=== PATIENT | male | born 1940 | race Caucasian/White ===

== ENCOUNTER 2016-12-21 10:32 | Emergency (ER) | payer MEDICARE ==
[~2016-12-21] VITALS: Ht 162.6 cm; Wt 74.8 kg
[~2016-12-21 10:32] MED LIST: ASPI-482 PO; FURO40TA4 PO; LISI-338 PO; METO25TA4 PO; PANT40TA5 PO; PHEN100C PO; PHEN100O3 PO; PHEN64.8 PO; POTA20TA12 PO; POTA20TA4 PO; SIMV10TA3 PO; SPIR25TA PO
--- NOTE | 2016-12-21 12:32 | PHYS DOC ---
Past Medical History Past Medical History: CAD, High Cholesterol, Heart Disease, Hypertension, Seizure, Stroke Past Surgical History: Coronary Bypass Surgery Additional Information: smokes 3-4 cigars daily Alcohol Use: None Drug Use: None Adult General Chief Complaint Chief Complaint: CELLULITIS HPI HPI 76-year-old male who has history of cardiac bypass surgery for the past month has had some lower extremity bilaterally irritation consistent with a dermatitis that has been treated with prednisone and Bactroban ointment with minimal to no relief. Over the last day now he's developed significant redness and swelling to his right lower extremity and concern for cellulitis. He additionally states he has history of hypertension and a seizure disorder. He states the wound area on the right lower extremity has been seeping clear drainage. He states this fluid is filling his sock last evening and that is what concerned him. He denies any fever or chills. He denies any nausea or vomiting. He denies any chest pain or shortness of breath. Review of Systems Review of Systems Constitutional: Denies fever or chills [] Eyes: Denies change in visual acuity, redness, or eye pain [] HENT: Denies nasal congestion or sore throat [] Respiratory: Denies cough or shortness of breath [] Cardiovascular: No additional information not addressed in HPI [] GI: Denies abdominal pain, nausea, vomiting, bloody stools or diarrhea [] : Denies dysuria or hematuria [] Musculoskeletal: Denies back pain or joint pain [] Integument: Denies rash, has skin lesions [] Neurologic: Denies headache, focal weakness or sensory changes [] Endocrine: Denies polyuria or polydipsia [] Current Medications Current Medications Current Medications Medications (Trade) Dose Ordered Sig/Omkar Start Time Stop Time Status Last Admin Dose Admin Clindamycin Phosphate (Cleocin 600 Mg Premix) 50 ml @ 100 mls/hr 1X ONCE 12/21/16 13:30 12/21/16 13:59 DC 12/21/16 13:34 100 MLS/HR Allergies Allergies Allergies Coded Allergies Type Severity Reaction Last Updated Verified Sulfa (Sulfonamide Antibiotics) Adverse Reaction Intermediate HALLUCINATIONS Yes morphine Adverse Reaction Intermediate HALLUCINATIONS 05/14/15 Yes warfarin Adverse Reaction Intermediate GI bleeding 12/21/16 Yes Physical Exam Physical Exam Constitutional: Well developed, well nourished, no acute distress, non-toxic appearance. [] HENT: Normocephalic, atraumatic, bilateral external ears normal, oropharynx moist, no oral exudates, nose normal. [] Eyes: PERRLA, EOMI, conjunctiva normal, no discharge. [] Neck: Normal range of motion, no tenderness, supple, no stridor. [] Cardiovascular:Heart rate regular rhythm, no murmur [] Lungs & Thorax: Bilateral breath sounds clear to auscultation [] Abdomen: Bowel sounds normal, soft, no tenderness, no masses, no pulsatile masses. [] Skin: Warm, dry, no erythema, no rash. [] Back: No tenderness, no CVA tenderness. [] Extremities: Right lower extremity swelling and tenderness with an area of erythema to the right toe that extends upward to the right anterior tibial surface, no cyanosis, no clubbing, ROM intact, bilateral 2+ edema to lower extremities [] Neurologic: Alert and oriented X 3, normal motor function, normal sensory function, no focal deficits noted. [] Psychologic: Affect normal, judgement normal, mood normal. [] Current Patient Data Vital Signs Vital Signs Date Time Temp Pulse Resp B/P Pulse Ox O2 Delivery O2 Flow Rate FiO2 12/21/16 14:19 111 22 129/69 Room Air 12/21/16 13:50 98 12/21/16 10:51 97.6 97.6 Lab Values Laboratory Tests Test 12/21/16 13:10 White Blood Count 12.8x10^3/uL (4.0-11.0) H Red Blood Count 3.54x10^6/uL (4.30-5.70) L Hemoglobin 11.0g/dL (13.0-17.5) L Hematocrit 33.4% (39.0-53.0) L Mean Corpuscular Volume 94fL (79-100) Mean Corpuscular Hemoglobin 31pg (25-35) Mean Corpuscular Hemoglobin Concent 33g/dL (31-37) Red Cell Distribution Width 13.9% (11.5-14.5) Platelet Count 200x10^3/uL (140-400) Neutrophils (%) (Auto) 59% (31-73) Lymphocytes (%) (Auto) 9% (24-48) L Monocytes (%) (Auto) 8% (0-9) Eosinophils (%) (Auto) 24% (0-3) H Basophils (%) (Auto) 1% (0-3) Neutrophils # (Auto) 7.5x10^3uL (1.8-7.7) Lymphocytes # (Auto) 1.2x10^3/uL (1.0-4.8) Monocytes # (Auto) 1.0x10^3/uL (0.0-1.1) Eosinophils # (Auto) 3.1x10^3/uL (0.0-0.7) H Basophils # (Auto) 0.1x10^3/uL (0.0-0.2) Segmented Neutrophils % 61% (35-66) Band Neutrophils % 7% (0-9) Lymphocytes % 7% (24-48) L Monocytes % 1% (0-10) Eosinophils % 24% (0-5) H Toxic Granulation Slight Platelet Estimate Adequate (ADEQUATE) Sodium Level 141mmol/L (136-145) Potassium Level 3.9mmol/L (3.5-5.1) Chloride Level 106mmol/L (98-107) Carbon Dioxide Level 26mmol/L (21-32) Anion Gap 9 (6-14) Blood Urea Nitrogen 12mg/dL (8-26) Creatinine 1.1mg/dL (0.7-1.3) Estimated GFR (Cockcroft-Gault) 65.4 Glucose Level 111mg/dL (70-99) H Calcium Level 7.9mg/dL (8.5-10.1) L Laboratory Tests 12/21/16 13:10 Laboratory Tests 12/21/16 13:10 EKG EKG [] Radiology/Procedures Radiology/Procedures [] Course & Med Decision Making Course & Med Decision Making Pertinent Labs and Imaging studies reviewed. (See chart for details) 76 old male who's had treatment for ongoing bilateral skin irritation and dermatitis of his lower extremities now has what appears to be a developing cellulitis on his right lower extremity with some mild swelling as well. Venous Doppler of his right lower externally was ordered. Lab work will also be drawn. At this time, I believe the patient to be suitable for oral antibiotic therapy and close follow-up if his lab work is unremarkable and his Doppler is negative for DVT. Pt has sulfa allergy. I will be giving the patient a dose of clindamycin. Laboratory workup showed a slightly elevated white count but no other acute abnormality. Patient was given a prescription for clindamycin. I discussed this case with Dr. Lane who agreed that he will follow the patient the next several days for a likely early cellulitis. Venous Doppler was negative for DVT. He was discharged without incident. Dragon Disclaimer Dragon Disclaimer This electronic medical record was generated, in whole or in part, using a voice recognition dictation system. Departure Departure Impression: Primary Impression: Cellulitis Additional Impression: Dermatitis Disposition: 01 HOME, SELF-CARE Admitting Physician: Other Condition: STABLE Referrals: TEQUILA LANE MD (PCP) Patient Instructions: Cellulitis, [id number] Additional Instructions: Please follow up with your primary doctor in the next 2-3 days regarding your recent skin infection. Take your antibiotic as prescribed. Return to the ER if you develop any worsening of your symptoms or if you notice your infection getting any worse. Return if the redness should worsen or if you develop any fever or chills. Scripts Clindamycin Hcl 150 Mg [id number] Mg PO QID #120 CAP Prov:MIN AGRCIA DO 12/21/16 Problem Qualifiers MIN GARCIA DO Dec 21, 2016 12:32
[2016-12-21 13:19] LABS: BASO # 0.1 x10^3/uL (0.0-0.2); BASO % 1 % (0-3); EOS % 24 % (0-3); HEMATOCRIT 33.4 % (39.0-53.0); LYMPH # 1.2 x10^3/uL (1.0-4.8); LYMPH % 9 % (24-48); MEAN CORPUSCULAR HEMOGLOBIN 31 pg (25-35); MEAN CORPUSCULAR HGB CONC 33 g/dL (31-37); MEAN CORPUSCULAR VOLUME 94 fL (79-100); MONO % 8 % (0-9); NEUT % 59 % (31-73); PLATELET COUNT 200 x10^3/uL (140-400); RED BLOOD COUNT 3.54 x10^6/uL (4.30-5.70); RED CELL DISTRIBUTION WIDTH 13.9 % (11.5-14.5); WHITE BLOOD COUNT 12.8 x10^3/uL (4.0-11.0)
[2016-12-21 13:28] LABS: CALCIUM 7.9 mg/dL (8.5-10.1); CREATININE 1.1 mg/dL (0.7-1.3); GFR 65.4; POTASSIUM 3.9 mmol/L (3.5-5.1)
[2016-12-21] MEDS ORDERED: CLINDAMYCIN 600MG PREMIX 50 ML IV ONE (13:30)
--- NOTE | 2016-12-21 14:01 | RAD ---
EXAM: Right lower extremity venous Doppler sonogram. HISTORY: Swelling. TECHNIQUE: Grayscale and color Doppler sonographic imaging of the right lower extremity veins with spectral waveform analysis was performed. COMPARISON: None. FINDINGS: The calf veins are not well seen on longitudinal color Doppler images. However, the calf veins are compressible on the transverse images. There is normal color flow, normal compressibility and there are normal spectral waveforms with the remainder of the right lower 70 veins. There is soft tissue edema. There is a prominent right inguinal lymph node measuring 2.9 cm in maximum dimension. This maintains a fatty hilum and is likely reactive in etiology. IMPRESSION: 1. No Doppler evidence of lower extremity venous thrombosis. 2. Right lower extremity soft tissue edema. 3. Prominent right inguinal lymph node, likely reactive in etiology.
[2016-12-21] MEDS ORDERED: CLIN-44 PO (14:05)
[2016-12-21 14:13] LABS: % EOS 24 % (0-5)
[2016-12-21 14:17] LABS: PLT ESTIMATE ADEQUATE (ADEQUATE); TOXIC GRANULATION SLIGHT
[2016-12-21 14:19] VITALS: BP 129/69
== END 2016-12-21 14:20 | disposition home or self-care (01) ==
LOC: ER 10:32
DX: L03.115 Cellulitis of right lower limb (principal); L30.9 Dermatitis, unspecified; E78.00 Pure hypercholesterolemia, unspecified; I11.9 Hypertensive heart disease without heart failure; I25.10 Atherosclerotic heart disease of native coronary artery without angina pectoris; Z86.73 Personal history of transient ischemic attack (TIA), and cerebral infarction without residual deficits; F17.210 Nicotine dependence, cigarettes, uncomplicated; Z95.1 Presence of aortocoronary bypass graft; G40.909 Epilepsy, unspecified, not intractable, without status epilepticus; Z88.2 Allergy status to sulfonamides; Z88.5 Allergy status to narcotic agent; Z88.8 Allergy status to other drugs, medicaments and biological substances
CPT/HCPCS: 36415; 80048; 85007; 85027; 93971; 96365; 99285; J3490

== ENCOUNTER → 2017-05-06 | Outpatient (CLI) | payer MEDICARE ==
[~2017-05-06] MED LIST changes: +CLIN150C14 PO; -PHEN100O3 PO; +PHEN100O4 PO
[2017-05-06 12:51] LABS: BASO # 0.1 x10^3/uL (0.0-0.2); BASO % 1 % (0-3); EOS % 17 % (0-3); HEMOGLOBIN 11.3 g/dL (13.0-17.5); LYMPH # 1.3 x10^3/uL (1.0-4.8); LYMPH % 16 % (24-48); MEAN CORPUSCULAR HEMOGLOBIN 32 pg (25-35); MEAN CORPUSCULAR HGB CONC 33 g/dL (31-37); MEAN CORPUSCULAR VOLUME 95 fL (79-100); MONO % 8 % (0-9); NEUT % 58 % (31-73); PLATELET COUNT 235 x10^3/uL (140-400); RED BLOOD COUNT 3.58 x10^6/uL (4.30-5.70); RED CELL DISTRIBUTION WIDTH 14.1 % (11.5-14.5); WHITE BLOOD COUNT 8.3 x10^3/uL (4.0-11.0)
[2017-05-06 13:09] LABS: ALBUMIN 3.1 g/dL (3.4-5.0); CALCIUM 7.9 mg/dL (8.5-10.1); CREATININE 1.8 mg/dL (0.7-1.3); DIRECT BILIRUBIN 0.1 mg/dL (0.0-0.2); GFR 37.1; MAGNESIUM 2.1 mg/dL (1.8-2.4); POTASSIUM 4.6 mmol/L (3.5-5.1); TOTAL BILIRUBIN 0.3 mg/dL (0.2-1.0); TOTAL PROTEIN 7.4 g/dL (6.4-8.2)
[2017-05-06 13:10] LABS: CHOLESTEROL/HDL RATIO 2.4
== END | disposition home or self-care (01) ==
LOC: LAB 11:48
PROVIDERS: ATTEND Internal Medicine Cardiovascular Disease
DX: I48.91 Unspecified atrial fibrillation (principal); I25.10 Atherosclerotic heart disease of native coronary artery without angina pectoris; E78.5 Hyperlipidemia, unspecified
CPT/HCPCS: 36415; 80048; 80061; 80076; 83735; 85027

== ENCOUNTER → 2018-05-09 | Outpatient (CLI) | payer MEDICARE ==
[2018-05-09] MEDS: REGADENOSON 0.4 MG/5 ML DISP.SYRIN. IV (10:24)
== END | disposition home or self-care (01) ==
LOC: NM 08:13
DX: Z48.812 Encounter for surgical aftercare following surgery on the circulatory system (principal); E78.5 Hyperlipidemia, unspecified; E78.00 Pure hypercholesterolemia, unspecified; E87.6 Hypokalemia; I13.10 Hypertensive heart and chronic kidney disease without heart failure, with stage 1 through stage 4 chronic kidney disease, or unspecified chronic kidney disease; I50.9 Heart failure, unspecified; N18.9 Chronic kidney disease, unspecified; I48.0 Paroxysmal atrial fibrillation; K21.9 Gastro-esophageal reflux disease without esophagitis; Z86.2 Personal history of diseases of the blood and blood-forming organs and certain disorders involving the immune mechanism; Z87.891 Personal history of nicotine dependence; Z95.1 Presence of aortocoronary bypass graft; Z86.73 Personal history of transient ischemic attack (TIA), and cerebral infarction without residual deficits
CPT/HCPCS: 78452; 93017; 96374; 96375; 96376; A9500; J2785

== ENCOUNTER 2020-06-04 13:34 | Inpatient (IN) | payer MEDICARE ==
[~2020-06-04] VITALS: Ht 165.1 cm; Wt 62.7 kg
[~2020-06-04 13:34] MED LIST changes: -PANT40TA5 PO; +PANT40TA77 PO; +SIMV10TA15 PO; -SIMV10TA3 PO
[2020-06-04 14:11] LABS: BASO # 0.1 x10^3/uL (0.0-0.2); BASO % 1 % (0-3); EOS % 0 % (0-3); HEMATOCRIT 29.3 % (39.0-53.0); HEMOGLOBIN 9.8 g/dL (13.0-17.5); LYMPH # 0.5 x10^3/uL (1.0-4.8); LYMPH % 7 % (24-48); MEAN CORPUSCULAR HEMOGLOBIN 35 pg (25-35); MEAN CORPUSCULAR HGB CONC 34 g/dL (31-37); MEAN CORPUSCULAR VOLUME 104 fL (79-100); MONO # 0.4 x10^3/uL (0.0-1.1); MONO % 6 % (0-9); NEUT % 86 % (31-73); PLATELET COUNT 440 x10^3/uL (140-400); RED BLOOD COUNT 2.82 x10^6/uL (4.30-5.70); RED CELL DISTRIBUTION WIDTH 17.6 % (11.5-14.5); WHITE BLOOD COUNT 6.9 x10^3/uL (4.0-11.0)
[2020-06-04] MEDS ORDERED: DILTIAZEM HCL 125 MG in IV NORMAL SALINE 100ML 100 ML IV PRN (14:15)
[2020-06-04 14:26] LABS: CALCIUM 8.2 mg/dL (8.5-10.1); CREATININE 2.1 mg/dL (0.7-1.3); GFR 30.8; POTASSIUM 5.5 mmol/L (3.5-5.1)
[2020-06-04 14:29] LABS: ALBUMIN 3.1 g/dL (3.4-5.0); ALBUMIN/GLOBULIN RATIO 0.7 (1.0-1.7); MAGNESIUM 2.5 mg/dL (1.8-2.4); TOTAL BILIRUBIN 0.3 mg/dL (0.2-1.0); TOTAL PROTEIN 7.4 g/dL (6.4-8.2)
[2020-06-04 14:37] LABS: FREE T4 0.85 ng/dL (0.76-1.46); THYROID STIM HORMONE (TSH) 2.138 uIU/mL (0.358-3.74)
[2020-06-04] MEDS ORDERED: dilTIAZem IV PUSH 25 MG/5 ML VIAL IVP ONE (14:45)
[2020-06-04] MEDS ORDERED: ONDANSETRON PF 4 MG/2 ML VIAL. IV PRN (15:00)
--- NOTE | 2020-06-04 15:00 | PHYS DOC ---
Past Medical History Past Medical History: CAD, High Cholesterol, Heart Disease, Hypertension, Seizure, Stroke Past Surgical History: Coronary Bypass Surgery Smoking Status: Current Every Day Smoker Alcohol Use: None Drug Use: None General Adult EDM: Chief Complaint: Palpitations HPI: HPI: Patient is a 79 year old male who was brought here from half-way due to rapid heart rate for about 3 to 4 days. Patient also complained of weakness and trouble breathing with exertion. Patient denies any cough, no fever, no abdominal pain, no chest pain. Patient do have history of atrial fibrillation, he is on Cardizem at the half-way. Review of Systems: Review of Systems: Constitutional: Denies fever or chills. [] Eyes: Denies change in visual acuity. [] HENT: Denies nasal congestion or sore throat. [] Respiratory: Denies cough , positive for shortness of breath. [] Cardiovascular: Denies chest pain, positive for edema, positive heart palpitation GI: Denies abdominal pain, nausea, vomiting, bloody stools or diarrhea. [] : Denies dysuria. [] Musculoskeletal: Denies back pain or joint pain. [] Integument: Denies rash. [] Neurologic: Denies headache, focal weakness or sensory changes. [] Endocrine: Denies polyuria or polydipsia. [] Lymphatic: Denies swollen glands. [] Psychiatric: Denies depression or anxiety. [] Heart Score: Risk Factors: Risk Factors: DM, Current or recent (<one month) smoker, HTN, HLP, family h istory of CAD, obesity. Risk Scores: Score 0 - 3: 2.5% MACE over next 6 weeks - Discharge Home Score 4 - 6: 20.3% MACE over next 6 weeks - Admit for Clinical Observation Score 7 - 10: 72.7% MACE over next 6 weeks - Early Invasive Strategies Current Medications: Current Medications Medications (Trade) Dose Ordered Sig/Omkar Start Time Stop Time Status Last Admin Dose Admin Diltiazem HCl (Cardizem Iv Push) 20 mg 1X ONCE 06/04/20 14:45 06/04/20 14:46 DC 06/04/20 14:19 20 MG Diltiazem HCl 125 mg/Sodium Chloride 125 ml @ 0 mls/hr CONT PRN 06/04/20 14:15 Allergies: Allergies: Allergies Coded Allergies Type Severity Reaction Last Updated Verified Sulfa (Sulfonamide Antibiotics) Adverse Reaction Intermediate HALLUCINATIONS 05/14/15 Yes morphine Adverse Reaction Intermediate HALLUCINATIONS 05/14/15 Yes warfarin Adverse Reaction Intermediate GI bleeding 12/21/16 Yes Physical Exam: PE: Constitutional: Well developed, well nourished, no acute distress, non-toxic appearance. [] HENT: Normocephalic, atraumatic, bilateral external ears normal, oropharynx moist, no oral exudates, nose normal. [] Eyes: PERRLA, EOMI, conjunctiva PALE, no discharge. [] Neck: Normal range of motion, no tenderness, supple, no stridor. [] Cardiovascular:Rapid, irregular irregular rhythm, systolic murmur, pitting edema 2 plus. Lungs & Thorax: Bilateral breath sounds clear to auscultation [] Abdomen: Bowel sounds normal, soft, no tenderness, no masses, no pulsatile masses. [] Skin: Warm, dry, no erythema, no rash. [] Back: No tenderness, no CVA tenderness. [] Extremities: No tenderness, no cyanosis, no clubbing, ROM intact, pitting edema 2 plus in legs. Neurologic: Alert and oriented X 3, normal motor function, normal sensory function, no focal deficits noted. [] Psychologic: Affect normal, judgement normal, mood normal. [] Current Patient Data: Labs: Laboratory Tests Test 06/04/20 14:03 White Blood Count 6.9 x10^3/uL (4.0-11.0) Red Blood Count 2.82 x10^6/uL (4.30-5.70) L Hemoglobin 9.8 g/dL (13.0-17.5) L Hematocrit 29.3 % (39.0-53.0) L Mean Corpuscular Volume 104 fL (79-100) H Mean Corpuscular Hemoglobin 35 pg (25-35) Mean Corpuscular Hemoglobin Concent 34 g/dL (31-37) Red Cell Distribution Width 17.6 % (11.5-14.5) H Platelet Count 440 x10^3/uL (140-400) H Neutrophils (%) (Auto) 86 % (31-73) H Lymphocytes (%) (Auto) 7 % (24-48) L Monocytes (%) (Auto) 6 % (0-9) Eosinophils (%) (Auto) 0 % (0-3) Basophils (%) (Auto) 1 % (0-3) Neutrophils # (Auto) 6.0 x10^3/uL (1.8-7.7) Lymphocytes # (Auto) 0.5 x10^3/uL (1.0-4.8) L Monocytes # (Auto) 0.4 x10^3/uL (0.0-1.1) Eosinophils # (Auto) 0.0 x10^3/uL (0.0-0.7) Basophils # (Auto) 0.1 x10^3/uL (0.0-0.2) Platelet Estimate Pending Sodium Level 136 mmol/L (136-145) Potassium Level 5.5 mmol/L (3.5-5.1) H Chloride Level 102 mmol/L (98-107) Carbon Dioxide Level 24 mmol/L (21-32) Anion Gap 10 (6-14) Blood Urea Nitrogen 40 mg/dL (8-26) H Creatinine 2.1 mg/dL (0.7-1.3) H Estimated GFR (Cockcroft-Gault) 30.8 BUN/Creatinine Ratio 19 (6-20) Glucose Level 114 mg/dL (70-99) H Calcium Level 8.2 mg/dL (8.5-10.1) L Magnesium Level 2.5 mg/dL (1.8-2.4) H Total Bilirubin 0.3 mg/dL (0.2-1.0) Aspartate Amino Transferase (AST) 49 U/L (15-37) H Alanine Aminotransferase (ALT) 43 U/L (16-63) Alkaline Phosphatase 168 U/L (46-116) H Troponin I Quantitative 0.808 ng/mL (0.000-0.055) XU-Uph-H-Type Natriuretic Peptide > 32905 pg/mL (0-449) H Total Protein 7.4 g/dL (6.4-8.2) Albumin 3.1 g/dL (3.4-5.0) L Albumin/Globulin Ratio 0.7 (1.0-1.7) L Thyroid Stimulating Hormone (TSH) 2.138 uIU/mL (0.358-3.74) Free Thyroxine 0.85 ng/dL (0.76-1.46) Laboratory Tests 06/04/20 14:03 Laboratory Tests 06/04/20 14:03 Vital Signs: Vital Signs Date Time Temp Pulse Resp B/P (MAP) Pulse Ox O2 Delivery O2 Flow Rate FiO2 06/04/20 14:19 140 116/89 EKG: EKG: EKG was done at 1350, heart rate of 143 beats per minutes, atrial fibrillation with RVR, no ST segment elevation Radiology/Procedures: Radiology/Procedures: [][facility] [address] [place] [address] IMAGING REPORT Signed PATIENT: MATTHEW MARTINEZ ACCOUNT: [id number] : 1940 LOCATION: ER AGE: 79 SEX: M EXAM STATUS: PRE ER ORD. PHYSICIAN: KATHYA LOVELL DO REASON: heart palpitation PROCEDURE: CHEST AP ONLY CHEST AP ONLY 06/04/2020 2:05 PM INDICATION: Heart palpitations COMPARISON: None available TECHNIQUE: Portable frontal view of the chest is provided. FINDINGS: The cardiomediastinal silhouette is enlarged. Median sternotomy changes are present. Mild interstitial prominence as may be seen with interstitial edema versus interstitial pneumonitis. Trace bilateral pleural effusions. No pneumothorax although the left lung apex is obscured. No suspicious osseous abnormality. IMPRESSION: Mild cardiomegaly with trace bilateral pleural effusions and interstitial prominence as may be seen with congestive heart failure. Electronically signed by: Pravin Rai MD (06/04/2020 2:59 PM) [id number] DICTATED and SIGNED BY: PRAVIN RAI MD DATE: 06/04/20 1459 Course & Med Decision Making: Course & Med Decision Making Pertinent Labs and Imaging studies reviewed. (See chart for details) Patient is a 79-year-old male who was evaluated in ER due to heart palpitation and trouble breathing with exertion. Patient was found to have CHF exacerbatio n and atrial fibrillation with RVR. Patient was put on Cardizem in the ER, patient be admitted to hospital. Discussed with Dr. SIMPSON who agrees TO admit the patient. Dragon Disclaimer: Dragon Disclaimer: This electronic medical record was generated, in whole or in part, using a voice recognition dictation system. Departure Departure Impression: Primary Impression: Atrial fibrillation with RVR Additional Impression: CHF (congestive heart failure) Disposition: 09 ADMITTED INPATIENT Admitting Physician: Janneth Simpson Condition: IMPROVED Referrals: JANNETH SIMPSON MD (PCP) Justicifation of Admission Dx: Justifications for Admission: Justification of Admission Dx: Yes (AFIB WITH RVR) KATHYA LOVELL DO Jun 04, 2020 15:00
[2020-06-04 15:23] LABS: % BANDS 7 % (0-9); % LYMPHS 5 % (24-48); % MONOS 2 % (0-10); % SEGS 86 % (35-66)
[2020-06-04 15:25] LABS: ANISOCYTOSIS SLIGHT; PLT ESTIMATE INCREASED (ADEQUATE); TOXIC VACUOLATION SLIGHT
[2020-06-04] MEDS ORDERED: ASCO100T4 PO (16:14)
[2020-06-04] MEDS ORDERED: LACT1CAP6 PO (16:14)
[2020-06-04] MEDS ORDERED: DILT60TA3 PO (16:14)
[2020-06-04 17:57] VITALS: BP 99/68
[2020-06-04] MEDS ORDERED: MIDO5TAB4 PO (18:21)
[2020-06-04] MEDS ORDERED: ZINC220C4 PO (18:32)
[2020-06-04] MEDS ORDERED: MULT-246 PO (18:32)
[2020-06-04 19:00] VITALS: BP 110/82
[2020-06-04] MEDS ORDERED: DIGOXIN IV 500 MCG/2 ML AMPUL. IV ONE (19:15)
[2020-06-04] MEDS ORDERED: DILTIAZEM HCL 60 MG PO SCH (20:45)
[2020-06-04 21:00] VITALS: BP 106/74
[2020-06-04] MEDS: PHENobarbital 32.4 MG TABLET. PO SCH (21:48)
[2020-06-04] MEDS: MIDODRINE 5 MG TABLET PO SCH (21:48)
[2020-06-04] MEDS: SIMVASTATIN 10 MG TABLET PO SCH (21:48)
[2020-06-04] MEDS: PHENYTOIN SODIUM EXTENDED 100 MG CAPSULE PO SCH (21:48)
[2020-06-04] MEDS: METOPROLOL TART IMMED RELEASE 25 MG TABLET. PO SCH (21:49)
[2020-06-04 22:00] VITALS: BP 107/69
[2020-06-04 23:00] VITALS: BP_SYST 104; BP_SYST 108; BP_DIAS 69; BP_DIAS 70
[2020-06-05] VITALS (12 sets, daily range): BP systolic 91–126; BP diastolic 60–76
--- NOTE | 2020-06-05 04:13 | EKG ---
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
[2020-06-05] MEDS: PANTOPRAZOLE 40 MG TABLET.DR. PO SCH (06:37)
[2020-06-05 07:53] LABS: ANION GAP 9 (6-14); BLOOD UREA NITROGEN 37 mg/dL (8-26); CALCIUM 7.4 mg/dL (8.5-10.1); CARBON DIOXIDE 23 mmol/L (21-32); CHLORIDE 104 mmol/L (98-107); CHOLESTEROL 124 mg/dL (0-200); GFR 32.6; GLUCOSE 90 mg/dL (70-99); HDLC 36 mg/dL (40-60); LDLC 74 mg/dL (0-100); PHENOBARB 26.2 mcg/mL (15.0-40.0); POTASSIUM 5.6 mmol/L (3.5-5.1); SODIUM 136 mmol/L (136-145); TRIGLYCERIDES 70 mg/dL (0-150); VLDLC 14 mg/dL (0-40)
[2020-06-05 07:54] LABS: CHOLESTEROL/HDL RATIO 3.4
[2020-06-05] MEDS: ASPIRIN ENTERIC COATED 81 MG TABLET.DR. PO SCH (08:23)
[2020-06-05] MEDS: ZINC SULFATE 220 MG CAPSULE. PO SCH (08:23)
[2020-06-05] MEDS: FUROSEMIDE 40 MG TABLET. PO SCH (08:23)
[2020-06-05] MEDS: METOPROLOL TART IMMED RELEASE 25 MG TABLET. PO SCH ×2 (08:24→20:46)
[2020-06-05] MEDS: MULTIVITAMIN with MINERAL TABLET. PO SCH (08:24)
[2020-06-05] MEDS: MIDODRINE 5 MG TABLET PO SCH ×3 (08:24→20:45)
[2020-06-05] MEDS: ENOXAPARIN 30 MG/0.3 ML SYRINGE. SQ SCH (08:26)
[2020-06-05] MEDS: ASCORBIC ACID 500 MG TABLET PO SCH (08:29)
--- NOTE | 2020-06-05 08:31 | PDOC ---
Provider Note Date of Service: DATE: 06/05/20 TIME: 08:31 Provider Note Pt seen .H&P dictated.#[id number]. Justifications for Admission Other Justification TEQUILA SIMPSON MD Jun 05, 2020 08:31
[2020-06-05] MEDS ORDERED: SPIRONOLACTONE 25 MG TABLET PO SCH (09:00)
--- NOTE | 2020-06-05 09:28 | PDOC2 ---
MARLENE ISLAS PIT BOSS 06/05/20 0928: CARDIAC CONSULT DATE OF CONSULT Date of Consult DATE: 06/05/20 TIME: 09:09 REASON FOR CONSULT Reason for Consult: AFIB RVR REFERRING PHYSICIAN Referring Physician: Sae SOURCE Source: Chart review, Patient HISTORY OF PRESENT ILLNESS HISTORY OF PRESENT ILLNESS This is a 79 [facility] for complains of shortness of breath and fast heart rate. He is a poor historian but did not complain of any chest pain or palpitations but rather shortness of breath and swelling. No reports of nausea or vomiting. No coughing. Apparently per staff he is on cardizem at [facility] but has not received it for unknown time possibly from supply issue. Presently as reveiwed he is also on metoprolol and has chronic AFIB. No fever or chills. His SOA is currently better with O2 and at supine position. PAST MEDICAL HISTORY Cardiovascular: AFIB (chronic), CAD, HTN, Hyperlipidemia Pulmonary: Pneumonia CENTRAL NERVOUS SYSTEM: CVA, Seizure GI: GERD, Other (hiatal hernia) Psych: Depression Musculoskeletal: Osteoarthritis PAST SURGICAL HISTORY Past Surgical History: CABG (x5 with dyer-maze procedure in 01/28/2012), Other (right eye surgery) FAMILY HISTORY Family History: Coronary Artery Disease (father) SOCIAL HISTORY Smoke: Quit ALCOHOL: none Lives: Residential CURRENT MEDICATIONS CURRENT MEDICATIONS Current Medications Medications (Trade) Dose Ordered Sig/Omkar Route PRN Reason Start Time Stop Time Status Last Admin Dose Admin Diltiazem HCl (Cardizem Iv Push) 20 mg 1X ONCE IVP 06/04/20 14:45 06/04/20 20:58 DC 06/04/20 14:19 Diltiazem HCl 125 mg/Sodium Chloride 125 ml @ 0 mls/hr CONT PRN IV SEE I/O RECORD 06/04/20 14:15 06/04/20 16:21 Digoxin (Lanoxin) 250 mcg 1X ONCE IV 06/04/20 19:15 06/04/20 19:16 DC 06/04/20 19:15 Aspirin (Ecotrin) 81 mg DAILY PO 06/05/20 09:00 06/05/20 08:23 Furosemide (Lasix) 40 mg DAILY PO 06/05/20 09:00 06/05/20 08:23 Metoprolol Tartrate (Lopressor) 25 mg BID PO 06/04/20 22:00 06/05/20 08:24 Midodrine (Proamatine) 5 mg TID PO 06/04/20 22:00 06/05/20 08:24 Pantoprazole Sodium (Protonix) 40 mg DAILYAC PO 06/05/20 07:30 06/05/20 06:37 Phenytoin Sodium (Dilantin) 200 mg HS PO 06/04/20 22:00 06/04/20 21:48 Simvastatin (Zocor) 10 mg QHS PO 06/04/20 22:00 06/04/20 21:48 Zinc Sulfate (Orazinc) 220 mg DAILY PO 06/05/20 09:00 06/05/20 08:23 Ascorbic Acid (Vitamin C) 250 mg DAILY PO 06/05/20 09:00 06/05/20 08:29 Multivitamins (Thera M Plus) 1 tab DAILY PO 06/05/20 09:00 06/05/20 08:24 Phenobarbital (Luminal) 64.8 mg HS PO 06/04/20 21:00 06/04/20 21:48 Enoxaparin Sodium (Lovenox 30mg Syringe) 30 mg Q24H SQ 06/05/20 09:00 06/05/20 08:26 ALLERGIES ALLERGIES: Coded Allergies: Sulfa (Sulfonamide Antibiotics) (Verified Adverse Reaction, Intermediate, HALLUCINATIONS, 05/14/15) morphine (Verified Adverse Reaction, Intermediate, HALLUCINATIONS, 05/14/15) warfarin (Verified Adverse Reaction, Intermediate, GI bleeding, 12/21/16) ROS Review of System 14 point ROS evaluated with pertinent positives noted per HPI PHYSICAL EXAM General: Alert, Oriented X3, Cooperative, No acute distress HEENT: Atraumatic, Mucous membr. moist/pink Lungs: Other (diminished) Heart: Other (AFIB rate controlled; 3/6 systolic murmur to LLS border) Abdomen: Soft Extremities: Other (3+ bilateral LE pitting edema) Skin: No significant lesion Neuro: Normal speech, Sensation intact Psych/Mental Status: Mental status NL, Other (anxious) MUSCULOSKELETAL: Osteoarthritic changes both hands VITALS/I&O VITALS/I&O: Vital Signs Date Time Temp Pulse Resp B/P (MAP) Pulse Ox O2 Delivery O2 Flow Rate FiO2 06/05/20 08:24 80 107/72 06/05/20 07:00 97.6 20 92 Nasal Cannula 2.0 97.6 I & O 06/04/20 06/04/20 06/05/20 15:00 23:00 07:00 Intake Total 120 ml 0 ml Balance 120 ml 0 ml LABS Lab: Laboratory Tests Test 06/04/20 14:03 06/04/20 21:30 06/05/20 07:13 White Blood Count 6.9 x10^3/uL (4.0-11.0) Red Blood Count 2.82 x10^6/uL (4.30-5.70) L Hemoglobin 9.8 g/dL (13.0-17.5) L Hematocrit 29.3 % (39.0-53.0) L Mean Corpuscular Volume 104 fL (79-100) H Mean Corpuscular Hemoglobin 35 pg (25-35) Mean Corpuscular Hemoglobin Concent 34 g/dL (31-37) Red Cell Distribution Width 17.6 % (11.5-14.5) H Platelet Count 440 x10^3/uL (140-400) H Neutrophils (%) (Auto) 86 % (31-73) H Lymphocytes (%) (Auto) 7 % (24-48) L Monocytes (%) (Auto) 6 % (0-9) Eosinophils (%) (Auto) 0 % (0-3) Basophils (%) (Auto) 1 % (0-3) Neutrophils # (Auto) 6.0 x10^3/uL (1.8-7.7) Lymphocytes # (Auto) 0.5 x10^3/uL (1.0-4.8) L Monocytes # (Auto) 0.4 x10^3/uL (0.0-1.1) Eosinophils # (Auto) 0.0 x10^3/uL (0.0-0.7) Basophils # (Auto) 0.1 x10^3/uL (0.0-0.2) Segmented Neutrophils % 86 % (35-66) H Band Neutrophils % 7 % (0-9) Lymphocytes % 5 % (24-48) L Monocytes % 2 % (0-10) Toxic Vacuolation Slight Platelet Estimate Increased (ADEQUATE) Anisocytosis Slight Sodium Level 136 mmol/L (136-145) 136 mmol/L (136-145) Potassium Level 5.5 mmol/L (3.5-5.1) H 5.6 mmol/L (3.5-5.1) H Chloride Level 102 mmol/L (98-107) 104 mmol/L (98-107) Carbon Dioxide Level 24 mmol/L (21-32) 23 mmol/L (21-32) Anion Gap 10 (6-14) 9 (6-14) Blood Urea Nitrogen 40 mg/dL (8-26) H 37 mg/dL (8-26) H Creatinine 2.1 mg/dL (0.7-1.3) H 2.0 mg/dL (0.7-1.3) H Estimated GFR (Cockcroft-Gault) 30.8 32.6 BUN/Creatinine Ratio 19 (6-20) Glucose Level 114 mg/dL (70-99) H 90 mg/dL (70-99) Calcium Level 8.2 mg/dL (8.5-10.1) L 7.4 mg/dL (8.5-10.1) L Magnesium Level 2.5 mg/dL (1.8-2.4) H Total Bilirubin 0.3 mg/dL (0.2-1.0) Aspartate Amino Transferase (AST) 49 U/L (15-37) H Alanine Aminotransferase (ALT) 43 U/L (16-63) Alkaline Phosphatase 168 U/L (46-116) H Troponin I Quantitative 0.808 ng/mL (0.000-0.055) 1.344 ng/mL (0.000-0.055) 1.234 ng/mL (0.000-0.055) VE-Chx-O-Type Natriuretic Peptide > 87347 pg/mL (0-449) H Total Protein 7.4 g/dL (6.4-8.2) Albumin 3.1 g/dL (3.4-5.0) L Albumin/Globulin Ratio 0.7 (1.0-1.7) L Thyroid Stimulating Hormone (TSH) 2.138 uIU/mL (0.358-3.74) Free Thyroxine 0.85 ng/dL (0.76-1.46) Triglycerides Level 70 mg/dL (0-150) Cholesterol Level 124 mg/dL (0-200) LDL Cholesterol, Calculated 74 mg/dL (0-100) VLDL Cholesterol, Calculated 14 mg/dL (0-40) Non-HDL Cholesterol Calculated 88 mg/dL (0-129) HDL Cholesterol 36 mg/dL (40-60) L Cholesterol/HDL Ratio 3.4 Phenytoin (Dilantin) Level 6.0 mcg/mL (10.0-20.0) L Phenytoin Last Dose Date 06/04/20 Phenytoin Last Dose Time 2100 Phenobarbital Level 26.2 mcg/mL (15.0-40.0) Phenobarbital Last Dose Date 06/04/20 Phenobarbital Last Dose Time 2100 Laboratory Tests 06/04/20 14:03 Laboratory Tests 06/04/20 14:03 06/05/20 07:13 ECHOCARDIOGRAM ECHOCARDIOGRAM <Conclusion> The left ventricular systolic function is normal. The Ejection Fraction is estimated at 55-60%. There is normal LV segmental wall motion. The left atrium is moderately dilated. Mild mitral regurgitation. Mild tricuspid regurgitation. There is moderate pulmonary hypertension. The PA pressure was estimated at 40 mmHg. There is no evidence of significant pericardial effusion. DATE: 06/17/16 1215 STRESS TEST STRESS TEST Conclusion 1. No EKG evidence of stressed induced ischemia. 2. Nuclear imaging shows no significant reversible ischemia. 3. Nuclear imaging shows a fixed apical defect most suggestive of a technical defect. 4. Normal left ventricular systolic function with an ejection fraction of 67%. 5. Moderately low risk Lexiscan nuclear stress test with no evidence of significant reversible ischemia and normal LV systolic function. DATE: 05/09/18 1238 ASSESSMENT/PLAN ASSESSMENT/PLAN 1. Chronic AFIB with RVR: rate now controlled. possible missed meds 2. Acute on chronic diastolic CHF 3. CHANDRA on CKD3 with mild hyperkalemia 4. NSTEMI: possibly type 2, trop 1.3 peaked, EKG afib without acute ST-T wave changes 5. Macrocytic anemia 6. CAD; past CABG, CP free 7. HTN: controlled 8. HLP: lipids on goal 9. Hx of seizures Recommendations TTE. Ischemic workup as an outpt. ASA for stroke prevention, has refused anticoagulation in the past Orthostatic readings when able. He is on midodrine Was given dig and started on cardizem in ED. DC cardizem drip. Continue metoprolol. Hold home lisinopril. BMP at noon. Diuretic therapy. If K level is higher then will consider SPS Continue secondary prevention Follow up with Dr. Black on Jul 02 at 9AM BRITTANY LUBIN MD 06/05/203: CARDIAC CONSULT ASSESSMENT/PLAN ASSESSMENT/PLAN The patient was seen and interviewed as well as examined at the bedside. The chart was reviewed. The case was discussed. Agree with the plan of care. MARLENE ISLAS APRN Jun 05, 2020 09:28 BRITTANY LUBIN MD Jun 05, 2020 19:13
--- NOTE | 2020-06-05 09:36 | EKG ---
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
--- NOTE | 2020-06-05 10:10 | NUR ---
SS following for discharge planning. SS reviewed pt chart and discussed with pt RN. Pt is a skilled rehabilitation resident from [facility], ; fax [phone]. Pt is currently requiring oxygen. SS requested PT/OT orders and COVID19 test per facility request. SS will continue to follow for discharge planning.
[2020-06-05] MEDS ORDERED: FUROSEMIDE 40 MG/4 ML VIAL. IVP ONE (11:30)
--- NOTE | 2020-06-05 13:07 | HP ---
ADMIT DATE: 06/04/2020 MEDICAL HISTORY AND PHYSICAL REASON FOR ADMISSION TO THE HOSPITAL: 1. Atrial fibrillation with rapid ventricular response. 2. Acute on chronic systolic heart failure. HISTORY OF PRESENT ILLNESS: The patient is a 79-year-old male patient known to me, has a history of coronary artery disease, bypass surgery, chronic systolic heart failure, had chronic AFib in the past and he was on Coumadin, but he had bleeding problems. He was not taking any Coumadin. The patient has been at the [facility] lately. I am not sure when and how we went there, but there, he was found to have a heart rate of 130-140, was sent to the Emergency Room, was found to have AFib with RVR, was given Cardizem, was admitted to the hospital. He also had 3+ edema of lower extremities, was given Lasix. PAST MEDICAL HISTORY: Has coronary artery disease, hypertension, hyperlipidemia, chronic AFib, had a previous seizure disorder, hiatal hernia, GI bleed in the past, arthritis. PAST SURGICAL HISTORY: CABG in 2011, right eye surgery. FAMILY HISTORY: Coronary artery disease. SOCIAL HISTORY: He is a smoker of cigars, quit recently. Denies alcohol. The patient has been at the residential recently. His was sick until recently. ALLERGIES: SULFA, MORPHINE, AND COUMADIN. MEDICATIONS AT HOME: Cardizem 60 mg q.8 hours, aspirin 81 mg daily, Lasix 40 mg daily, metoprolol 25 mg twice a day, midodrine 5 mg 3 times a day, Protonix 40 mg daily, Dilantin 200 mg at bedtime, Zocor 10 mg daily, zinc 220 daily, vitamin C daily, phenobarbital 64 mg daily. REVIEW OF SYSTEMS: The patient wants to go home. Denies any chest pain or shortness of breath, has chronic leg swelling. PHYSICAL EXAMINATION: GENERAL: The patient looks older than his age, last time I had seen him more than a year ago. VITAL SIGNS: Temperature 97, pulse 137, respirations 20, blood pressure 116/80, 88 on room air on 2 liters, 94. HEENT: Head is atraumatic. Pupils equal. Oral cavity: No congestion. No teeth. NECK: Supple. Thyroid not enlarged. JVD not elevated. CHEST: Symmetrical. CARDIOVASCULAR: S1, S2, irregular. LUNGS: Few crackles at the bases. ABDOMEN: Soft, bowel sounds present, no mass palpable. EXTERNAL GENITALIA: No [place]. RECTAL: Deferred. EXTREMITIES: 3+ edema all the way up to the thighs, pitting. Foot, no ulcerations in bed of toenails, thick and outgrown toenails. LABORATORY DATA: Shows a white count of 7, hemoglobin 10, platelets 440. Electrolytes show sodium 136, potassium 5.5, chloride 102, bicarbonate 24, anion gap 10, BUN 40, creatinine 2.1, glucose 114, calcium 8.2, magnesium 2.5. LFTs normal. BNP more than 35,000. Troponin 0.8, went up to 1.3, trending down to 1.2. TSH 2.1. Cholesterol 124, LDL 74. His Dilantin is 6, phenobarbital is 26. Chest x-ray shows cardiomegaly with CHF, mild pleural effusion. EKG: AFib with RVR, no ischemic changes. FINAL IMPRESSION: 1. Atrial fibrillation with rapid ventricular response, acute on chronic. 2. Acute on chronic systolic heart failure. 3. Non-ST elevation myocardial infarction, elevated troponin. 4. Hypertension. 5. History of seizures. 6. Coronary artery disease, history of bypass surgery. 7. Side effects from Coumadin. 8. Chronic kidney disease stage 3, creatinine 2. 9. Hyperkalemia, 5.7. PLAN: In the plan, admit, we will do an ultrasound of the kidneys, renal consult and to see how the patient improves in the next 24 hours. Pt was admitted to the hospital cardiac floor, Pt was given Lovenox low dose , Pt was given Cardizem drip to control heart rate. Will do echocardiogram for left ventricular function, venous Doppler of lower extremities to rule out DVT. TEQUILA SIMPSON MD DR: RANDA/chris JOB#: [id number] / [id number] KHADRA
[2020-06-05 13:48] LABS: CALCIUM 7.6 mg/dL (8.5-10.1); GFR 32.6; POTASSIUM 5.4 mmol/L (3.5-5.1)
--- NOTE | 2020-06-05 14:14 | RAD ---
EXAM: Bilateral lower extremity venous Doppler sonogram. HISTORY: Pain and swelling. TECHNIQUE: Kwok scale and color Doppler sonographic evaluation of the bilateral lower extremity veins with spectral waveform analysis was performed. FINDINGS: There is normal color flow, normal compressibility and there are normal spectral waveforms in the common femoral, superficial femoral, popliteal, posterior tibial and greater saphenous veins. The mid and distal right superficial femoral vein is difficult to assess given body habitus and soft tissue edema. IMPRESSION: No Doppler evidence of lower extremity deep venous thrombosis. Electronically signed by: Jaquelin Iyer MD (06/05/2020 2:11 PM) [facility]
--- NOTE | 2020-06-05 14:56 | NUR ---
Wound/Ostomy Care Wound Type/Assessment: Patient seen per wound care consult regarding Stage III pressure ulcer to bilateral buttocks. Wound cleansed, assessed, and measured. Treatment Recommendations/Plan: Recommendations for calazime cream, P-500 bed, and wheelchair cushion. Calazime cream applied. Education provided: Patient educated on dressing and turning Q2. Offloading surface/device: P-500 bed and wheelchair cushion. Recommended Referrals/Tests: N/A Discharge Recommendations for dressings: Continue current treatment. Patient scheduled to discharge today to return to [facility]. Patient in chair at this time with call light in reach. Will follow patient regarding wound care.
--- NOTE | 2020-06-05 15:06 | RAD ---
Exam is an: Ultrasound kidneys HISTORY: History of renal failure COMPARISON: None available Findings: The right kidney measures 9.2 x 3.8 x 3.2 cm . The left kidney measures 9.6 x 2.0 x 4.0 cm. There is a cystic structure identified in the left kidney measuring 1.7 cm probably a cyst. The urinary bladder is mildly distended. IMPRESSION: 1. 1.7 cm cyst left kidney Electronically signed by: Aurelio Dunn MD (06/05/2020 3:03 PM) [id number]
[2020-06-05] MEDS ORDERED: SODIUM POLYSTYRENE SULFON/SORB 15 GM/60 ML ORAL.SUSP. PO ONE (15:15)
--- NOTE | 2020-06-05 15:25 | PDOC2 ---
CONSULT Date of Consult Date of Consult DATE: 06/05/20 TIME: 15:20 Reason for Consult Reason for Consult: RENAL FAILURE Referring Physician Referring Physician: TATIANA Identification/Chief Complaint Chief Complaint SOB Source Source: Chart review History of Present Illness Reason for Visit: THIS IS A 79 YR OLD IN RESIDENT WITH SOB AND INCREASED HR. CARDIOLOGY EVALUATION ONGOING. HAS LE SWELLING ON EXAM. PT IS NOT A GOOD HISTORIAN. HAS CKD STAGE 3 TO 4 BASED ON LABS FROM THE PAST. CR OF ABOUT 2.0 AT BASELINE. NO NEPHROTOXINS NOTED. HX NEG EXCEPT FOR PROSTATISM. RENAL SONOGRAM NOTED TO SHOW A LEFT RENAL CYST. Past Medical History Cardiovascular: AFIB (chronic), CAD, HTN, Hyperlipidemia Pulmonary: Pneumonia CENTRAL NERVOUS SYSTEM: CVA, Seizure GI: GERD, Other (hiatal hernia) Heme/Onc: Anemia NOS Hepatobiliary: No pertinent hx Psych: Depression Musculoskeletal: Osteoarthritis Rheumatologic: No pertinent hx Infectious disease: No pertinent hx Renal/: Chronic renal insuff Endocrine: Diabetes Past Surgical History Past Surgical History: CABG (x5 with dyer-maze procedure in 01/28/2012), Other (right eye surgery) Family History Family History: Coronary Artery Disease (father) Social History Quit ALCOHOL: none Drugs: None [place]: [place] Domestic Violence: Neg Current Problem List Problem List Problems Medical Problems: (1) Atrial fibrillation with RVR Status: Acute (2) CHF (congestive heart failure) Status: Acute Current Medications Current Medications Current Medications Diltiazem HCl (Cardizem Iv Push) 20 mg 1X ONCE IVP Last administered on 06/04/20at 14:19; Start 06/04/20 at 14:45; Stop 06/04/20 at 20:58; Status DC Diltiazem HCl 125 mg/Sodium Chloride 125 ml @ 0 mls/hr CONT PRN IV SEE I/O RECORD Last administered on 06/04/20at 16:21; Start 06/04/20 at 14:15 Ondansetron HCl (Zofran) 4 mg PRN Q8HRS PRN IV NAUSEA/VOMITING; Start 06/04/20 at 15:00; Stop 06/05/20 at 14:59; Status DC Digoxin (Lanoxin) 250 mcg 1X ONCE IV Last administered on 06/04/20at 19:15; Start 06/04/20 at 19:15; Stop 06/04/20 at 19:16; Status DC Aspirin (Ecotrin) 81 mg DAILY PO Last administered on 06/05/20 08:23; Start 06/05/20 at 09:00 Furosemide (Lasix) 40 mg DAILY PO Last administered on 06/05/20at 08:23; Start 06/05/20 at 09:00 Metoprolol Tartrate (Lopressor) 25 mg BID PO Last administered on 06/05/20 08:24; Start 06/04/20 at 22:00 Midodrine (Proamatine) 5 mg TID PO Last administered on 06/05/20 08:24; Start 06/04/20 at 22:00 Pantoprazole Sodium (Protonix) 40 mg DAILYAC PO Last administered on 06/05/20at 06:37; Start 06/05/20 at 07:30 Phenytoin Sodium (Dilantin) 200 mg HS PO Last administered on 06/04/20at 21:48; Start 06/04/20 at 22:00 Simvastatin (Zocor) 10 mg QHS PO Last administered on 06/04/20 21:48; Start 06/04/20 at 22:00 Spironolactone (Aldactone) 25 mg DAILY PO ; Start 06/05/20 at 09:00; Stop 06/05/20 at 08:33; Status DC Zinc Sulfate (Orazinc) 220 mg DAILY PO Last administered on 06/05/20 08:23; Start 06/05/20 at 09:00 Ascorbic Acid (Vitamin C) 250 mg DAILY PO Last administered on 06/05/20at 08:29; Start 06/05/20 at 09:00 Non-Formulary Medication (Diltiazem Hcl (Cardizem Tablet)) 60 mg EVERY 6 HOURS PO ; Start 06/04/20 at 20:45; Stop 06/04/20 at 20:58; Status DC Multivitamins (Thera M Plus) 1 tab DAILY PO Last administered on 06/05/20 08:24; Start 06/05/20 at 09:00 Phenobarbital (Luminal) 64.8 mg HS PO Last administered on 06/04/20 21:48; Start 06/04/20 at 21:00 Enoxaparin Sodium (Lovenox 30mg Syringe) 30 mg Q24H SQ Last administered on 9/9/20at 08:26; Start 06/05/20 at 09:00 Furosemide (Lasix) 40 mg 1X ONCE IVP Last administered on 06/05/20at 11:47; Start 06/05/20 at 11:30; Stop 06/05/20 at 11:31; Status DC Sodium Polystyrene Sulfonate (Kayexalate) 15 gm 1X ONCE PO ; Start 06/05/20 at 15:15; Stop 06/05/20 at 15:18; Status DC Active Scripts Active Clindamycin Hcl 150 Mg Capsule 450 Mg PO QID Aldactone (Spironolactone) 25 Mg Tablet 25 Mg PO DAILY Dilantin (Phenytoin Sodium Extended) 100 Mg Capsule 200 Mg PO HS Reported Multi-Vitamin Daily (Multivitamin) 1 Each Tablet 1 Tab PO DAILY 30 Days Zinc-220 (Zinc Sulfate) 220 Mg Capsule 220 Mg PO DAILY Midodrine Hcl 5 Mg Tablet 5 Mg PO TID Probiotic (Lactobacillus Acidophilus) 1 Each Capsule 1 Cap PO BID 10 Days Cardizem Tablet (Diltiazem Hcl) 60 Mg Tablet 60 Mg PO EVERY 6 HOURS Vitamin C (Ascorbic Acid) 100 Mg Tablet 250 Mg PO DAILY Klor-Con M20 (Potassium Chloride) 20 Meq Tab.er.prt 1 Tab PO DAILY Furosemide 40 Mg Tablet 1 Tab PO DAILY Aspir 81 (Aspirin) 81 Mg Tablet.dr 81 Mg PO Simvastatin 10 Mg Tablet 10 Mg PO Pantoprazole Sodium (Pantoprazole Sodium) 40 Mg Tablet.dr 40 Mg PO Metoprolol Tartrate 25 Mg Tablet 25 Mg PO BID Phenobarbital 64.8 Mg Tablet 64.8 Mg PO Allergies Allergies: Coded Allergies: Sulfa (Sulfonamide Antibiotics) (Verified Adverse Reaction, Intermediate, HALLUCINATIONS, 05/14/15) morphine (Verified Adverse Reaction, Intermediate, HALLUCINATIONS, 05/14/15) warfarin (Verified Adverse Reaction, Intermediate, GI bleeding, 12/21/16) ROS Review of System UNABLE TO OBTAIN Physical Exam General: Alert, Oriented X3, Cooperative, No acute distress Lungs: Clear to auscultation, Other (DECREASED AT BASES) Heart: Regular rate Abdomen: Normal bowel sounds, Soft, No tenderness Neuro: Other (CONFUSED) MUSCULOSKELETAL: No deformity, Other (3+ EDEMA) Vitals VITALS Vital Signs Date Time Temp Pulse Resp B/P (MAP) Pulse Ox O2 Delivery O2 Flow Rate FiO2 06/05/20 11:00 97.7 76 20 112/76 (88) 100 Nasal Cannula 2.0 97.7 Labs Labs Laboratory Tests Test 06/04/20 14:03 06/04/20 21:30 06/05/20 07:13 06/05/20 13:10 White Blood Count 6.9 x10^3/uL (4.0-11.0) Red Blood Count 2.82 x10^6/uL (4.30-5.70) Hemoglobin 9.8 g/dL (13.0-17.5) Hematocrit 29.3 % (39.0-53.0) Mean Corpuscular Volume 104 fL (79-100) Mean Corpuscular Hemoglobin 35 pg (25-35) Mean Corpuscular Hemoglobin Concent 34 g/dL (31-37) Red Cell Distribution Width 17.6 % (11.5-14.5) Platelet Count 440 x10^3/uL (140-400) Neutrophils (%) (Auto) 86 % (31-73) Lymphocytes (%) (Auto) 7 % (24-48) Monocytes (%) (Auto) 6 % (0-9) Eosinophils (%) (Auto) 0 % (0-3) Basophils (%) (Auto) 1 % (0-3) Neutrophils # (Auto) 6.0 x10^3/uL (1.8-7.7) Lymphocytes # (Auto) 0.5 x10^3/uL (1.0-4.8) Monocytes # (Auto) 0.4 x10^3/uL (0.0-1.1) Eosinophils # (Auto) 0.0 x10^3/uL (0.0-0.7) Basophils # (Auto) 0.1 x10^3/uL (0.0-0.2) Segmented Neutrophils % 86 % (35-66) Band Neutrophils % 7 % (0-9) Lymphocytes % 5 % (24-48) Monocytes % 2 % (0-10) Toxic Vacuolation Slight Platelet Estimate Increased (ADEQUATE) Anisocytosis Slight Sodium Level 136 mmol/L (136-145) 136 mmol/L (136-145) 137 mmol/L (136-145) Potassium Level 5.5 mmol/L (3.5-5.1) 5.6 mmol/L (3.5-5.1) 5.4 mmol/L (3.5-5.1) Chloride Level 102 mmol/L (98-107) 104 mmol/L (98-107) 103 mmol/L (98-107) Carbon Dioxide Level 24 mmol/L (21-32) 23 mmol/L (21-32) 26 mmol/L (21-32) Anion Gap 10 (6-14) 9 (6-14) 8 (6-14) Blood Urea Nitrogen 40 mg/dL (8-26) 37 mg/dL (8-26) 37 mg/dL (8-26) Creatinine 2.1 mg/dL (0.7-1.3) 2.0 mg/dL (0.7-1.3) 2.0 mg/dL (0.7-1.3) Estimated GFR (Cockcroft-Gault) 30.8 32.6 32.6 BUN/Creatinine Ratio 19 (6-20) Glucose Level 114 mg/dL (70-99) 90 mg/dL (70-99) 90 mg/dL (70-99) Calcium Level 8.2 mg/dL (8.5-10.1) 7.4 mg/dL (8.5-10.1) 7.6 mg/dL (8.5-10.1) Magnesium Level 2.5 mg/dL (1.8-2.4) Total Bilirubin 0.3 mg/dL (0.2-1.0) Aspartate Amino Transf (AST/SGOT) 49 U/L (15-37) Alanine Aminotransferase (ALT/SGPT) 43 U/L (16-63) Alkaline Phosphatase 168 U/L (46-116) Troponin I Quantitative 0.808 ng/mL (0.000-0.055) 1.344 ng/mL (0.000-0.055) 1.234 ng/mL (0.000-0.055) YU-Sue-K-Type Natriuretic Peptide > 61050 pg/mL (0-449) Total Protein 7.4 g/dL (6.4-8.2) Albumin 3.1 g/dL (3.4-5.0) Albumin/Globulin Ratio 0.7 (1.0-1.7) Thyroid Stimulating Hormone (TSH) 2.138 uIU/mL (0.358-3.74) Free Thyroxine 0.85 ng/dL (0.76-1.46) Triglycerides Level 70 mg/dL (0-150) Cholesterol Level 124 mg/dL (0-200) LDL Cholesterol, Calculated 74 mg/dL (0-100) VLDL Cholesterol, Calculated 14 mg/dL (0-40) Non-HDL Cholesterol Calculated 88 mg/dL (0-129) HDL Cholesterol 36 mg/dL (40-60) Cholesterol/HDL Ratio 3.4 Phenytoin (Dilantin) Level 6.0 mcg/mL (10.0-20.0) Phenytoin Last Dose Date 06/04/20 Phenytoin Last Dose Time 2099 Phenobarbital Level 26.2 mcg/mL (15.0-40.0) Phenobarbital Last Dose Date 06/04/20 Phenobarbital Last Dose Time 2099 Laboratory Tests Test 06/04/20 21:30 06/05/20 07:13 06/05/20 13:10 Troponin I Quantitative 1.344 ng/mL (0.000-0.055) 1.234 ng/mL (0.000-0.055) Sodium Level 136 mmol/L (136-145) 137 mmol/L (136-145) Potassium Level 5.6 mmol/L (3.5-5.1) 5.4 mmol/L (3.5-5.1) Chloride Level 104 mmol/L (98-107) 103 mmol/L (98-107) Carbon Dioxide Level 23 mmol/L (21-32) 26 mmol/L (21-32) Anion Gap 9 (6-14) 8 (6-14) Blood Urea Nitrogen 37 mg/dL (8-26) 37 mg/dL (8-26) Creatinine 2.0 mg/dL (0.7-1.3) 2.0 mg/dL (0.7-1.3) Estimated GFR (Cockcroft-Gault) 32.6 32.6 Glucose Level 90 mg/dL (70-99) 90 mg/dL (70-99) Calcium Level 7.4 mg/dL (8.5-10.1) 7.6 mg/dL (8.5-10.1) Triglycerides Level 70 mg/dL (0-150) Cholesterol Level 124 mg/dL (0-200) LDL Cholesterol, Calculated 74 mg/dL (0-100) VLDL Cholesterol, Calculated 14 mg/dL (0-40) Non-HDL Cholesterol Calculated 88 mg/dL (0-129) HDL Cholesterol 36 mg/dL (40-60) Cholesterol/HDL Ratio 3.4 Phenytoin (Dilantin) Level 6.0 mcg/mL (10.0-20.0) Phenytoin Last Dose Date 06/04/20 Phenytoin Last Dose Time 2099 Phenobarbital Level 26.2 mcg/mL (15.0-40.0) Phenobarbital Last Dose Date 06/04/20 Phenobarbital Last Dose Time 2099 Assessment/Plan Assessment/Plan IMP CKD STAGE 3B TO 4 HYPERKALEMIA AFIB RVR CHF-PROB DIASTOLIC HTN HX BENIGN LEFT RENAL CYST PLAN CARDIOLOGY EVALUATION IV LASIX STOP K SUPPLEMENTS VICKEY MOSELEY MD Jun 05, 2020 15:25
--- NOTE | 2020-06-05 15:42 | RAD ---
CT HEAD WO CONTRAST Clinical indications: Altered mental status. Left-sided weakness. Technique: Noncontrast axial cross sectional scanning of the head was performed. COMPARISON: July 22, 2011 PQRS compliance Statement One or more of the following individualized dose reduction techniques were utilized for this study: 1. Automated exposure control 2. Adjustment of the mA and/or kV according to patient size 3. Use of iterative reconstruction technique Findings: No acute intracranial hemorrhage or midline shift or mass-effect or hydrocephalus or extra-axial fluid collection is seen. Mild periventricular white matter hypodensity is seen consistent with chronic small vessel ischemic disease in this age group. No skull fracture or pneumocephalus is seen. No opacification of the mastoid sinuses or the middle ear cavities or the paranasal sinuses is seen. The maxillary sinuses are not completely seen in this study. Impression: No acute intracranial hemorrhage is seen. Mild chronic small vessel ischemic disease. Electronically signed by: Baljinder Cramer MD (06/05/2020 3:40 PM) [id number]
--- NOTE | 2020-06-05 19:07 | CARD ---
MR#: [id number] Date of Study: 06/05/2020 Ordering Physician: MARLENE ISLAS, Referring Physician: MARLENE ISLAS, Tech: Miriam Amaro [facility] APPROVED REPORT EXAM: Two-dimensional and M-mode echocardiogram with Doppler and color Doppler. Other Information Quality : Good INDICATION Atrial Fibrillation 2D DIMENSIONS RVDd3.0 (2.9-3.5cm)Left Atrium(2D)3.3 (1.6-4.0cm) IVSd1.4 (0.7-1.1cm)Aortic Root(2D)3.7 (2.0-3.7cm) LVDd3.4 (3.9-5.9cm)LVOT Diameter2.0 (1.8-2.4cm) PWd0.9 (0.7-1.1cm)LVDs2.5 (2.5-4.0cm) FS (%) 25.9 %SV24.0 ml LVEF(%)52.1 (>50%) Aortic Valve AoV Peak Abdifatah.107.3cm/sAoV VTI16.0cm AO Peak GR.4.6mmHgLVOT VTI 13.78cm AO Mean GR.3mmHgAVA (VTI)2.68cm2 Tricuspid Valve TR P. [id number]/sRAP [id number] TR Peak Gr.[id number] LEFT VENTRICLE The left ventricle is normal size. There is mild asymmetric septal hypertrophy. The left ventricular systolic function is normal and the ejection fraction is within normal range. The Ejection Fraction i s 55-60%. Septal motion consistent with conduction abnormality. Otherwise, grossly normal wall motion . Tissue Doppler imaging reveals severe left ventricular diastolic dysfunction. No left ventricle thr ombus noted on this study. RIGHT VENTRICLE The right ventricle is severely dilated. The right ventricular systolic function is mildy decreased ATRIA The left atrium is severe dilated. The right atrium is severely dilated. The interatrial septum is in tact with no evidence for an atrial septal defect or patent foramen ovale as noted on 2-D or Doppler imaging. AORTIC VALVE The aortic valve is calcified but opens well. Doppler and Color Flow revealed no significant aortic r egurgitation. There is no significant aortic valvular stenosis. MITRAL VALVE The mitral valve is calcified but opens well. Mitral annular calcification is mild. There is no evide nce of mitral valve prolapse. There is no mitral valve stenosis. Doppler and Color-flow revealed trac e mitral regurgitation. TRICUSPID VALVE Doppler and Color Flow revealed mild to moderate tricuspid regurgitation. There is moderate pulmonary hypertension. The PA pressure was estimated at 49 mmHg. There is no tricuspid valve stenosis. PULMONIC VALVE The pulmonic valve is not well visualized. Doppler and Color Flow revealed mild pulmonic valvular reg urgitation. There is no pulmonic valvular stenosis. GREAT VESSELS The aortic root is normal in size. The ascending aorta is mildly dilated at 3.6 cm. The IVC is normal in size and collapses >50% with inspiration. PERICARDIAL EFFUSION There is no evidence of significant pericardial effusion. Critical Notification Critical Value: No <Conclusion> The left ventricular systolic function is normal and the ejection fraction is within normal range. Th e Ejection Fraction is 55-60%. Septal motion consistent with conduction abnormality. Otherwise, grossly normal wall motion. Tissue Doppler imaging reveals severe left ventricular diastolic dysfunction. The right ventricle is severely dilated. The right ventricular systolic function is mildy decreased Doppler and Color Flow revealed mild to moderate tricuspid regurgitation. There is moderate pulmonary hypertension. The PA pressure was estimated at 49 mmHg. Signed by : Pierre Mcguire, Electronically Approved : 06/05/2020 19:07:14
--- NOTE | 2020-06-05 19:25 | NUR ---
Pt daughter here to see pt, poc explained pt alert with some confusion assessment completed vss call light in reach pt repositioned will resume care and continue to monitor pt.Bed alarm set.
[2020-06-05] MEDS: PHENYTOIN SODIUM EXTENDED 100 MG CAPSULE PO SCH (20:45)
[2020-06-05] MEDS: SIMVASTATIN 10 MG TABLET PO SCH (20:46)
[2020-06-05] MEDS: PHENobarbital 32.4 MG TABLET. PO SCH (20:46)
[2020-06-06 03:09] VITALS: BP 102/66
[2020-06-06 05:59] LABS: CALCIUM 7.3 mg/dL (8.5-10.1); CREATININE 2.1 mg/dL (0.7-1.3); GFR 30.8
[2020-06-06] MEDS: PANTOPRAZOLE 40 MG TABLET.DR. PO SCH ×2 (06:04→08:33)
[2020-06-06 07:00] VITALS: BP 92/63
[2020-06-06] MEDS: MULTIVITAMIN with MINERAL TABLET. PO SCH (08:32)
[2020-06-06] MEDS: METOPROLOL TART IMMED RELEASE 25 MG TABLET. PO SCH ×2 (08:32→19:57)
[2020-06-06] MEDS: ASCORBIC ACID 500 MG TABLET PO SCH (08:32)
[2020-06-06] MEDS: ZINC SULFATE 220 MG CAPSULE. PO SCH (08:33)
[2020-06-06] MEDS: MIDODRINE 5 MG TABLET PO SCH ×3 (08:33→19:58)
[2020-06-06] MEDS: ENOXAPARIN 30 MG/0.3 ML SYRINGE. SQ SCH (08:33)
[2020-06-06] MEDS: ASPIRIN ENTERIC COATED 81 MG TABLET.DR. PO SCH (08:33)
[2020-06-06] MEDS: FUROSEMIDE 40 MG TABLET. PO SCH ×2 (08:33→15:13)
[2020-06-06 11:00] VITALS: BP 119/83
--- NOTE | 2020-06-06 11:06 | PDOC ---
PROGRESS NOTES Date of Service: DATE: 06/06/20 TIME: 11:05 Subjective Subjective feels better ,badly want to go home , to be with his Objective Objective Vital Signs Date Time Temp Pulse Resp B/P (MAP) Pulse Ox O2 Delivery O2 Flow Rate FiO2 06/06/20 08:33 53 92/63 06/06/20 08:00 Nasal Cannula 2.0 06/06/20 07:00 98.2 22 94 98.2 Intake and Output 06/06/20 06:59 Intake Total 650 ml Balance 650 ml Intake Oral 650 ml # Voids 7 Physical Exam Abdomen: Normal bowel sounds, Soft, No tenderness Heart: Regular rate Extremities: Other (3+ bilateral LE pitting edema) General: Alert, Oriented X3, Cooperative, No acute distress HEENT: Atraumatic, Mucous membr. moist/pink Lungs: Clear to auscultation, Other (DECREASED AT BASES) MUSCULOSKELETAL: No deformity, Other (3+ EDEMA) Neuro: Other (CONFUSED) Psych/Mental Status: Mental status NL, Other (anxious) Skin: No significant lesion COMMENT 2+ edmea both legs Diagnosis Problem List Problems Medical Problems: (1) Atrial fibrillation with RVR Status: Acute (2) CHF (congestive heart failure) Status: Acute Assessment Assessment Problems Medical Problems: (1) Atrial fibrillation with RVR Status: Acute (2) CHF (congestive heart failure) Status: Acute FINAL IMPRESSION: 1. Atrial fibrillation with rapid ventricular response, acute on chronic. 2. Acute on chronic systolic heart failure. 3. Non-ST elevation myocardial infarction, elevated troponin. 4. Hypertension. 5. History of seizures. 6. Coronary artery disease, history of bypass surgery. 7. Side effects from Coumadin. 8. Chronic kidney disease stage 3, creatinine 2. 9. Hyperkalemia, 5.7. PLAN: CT head -ve sono kidneys cyst , venous doppler neg for dvt ECHO , sever TR , pul htn and rt heart failure. Cr 2.1 pot 5.1 down. d/c to SNU tomorrow admit to hospital , we will do an ultrasound of the kidneys, renal consult and to see how the patient improves in the next 24 hours. He was given Lovenox, was given Cardizem drip to control heart rate. Also, echocardiogram for left ventricular function, venous Doppler of lower extremities to rule out DVT. Plan Plan of Care Problems Medical Problems: (1) Atrial fibrillation with RVR Status: Acute (2) CHF (congestive heart failure) Status: Acute Comment Review of Relevant I have reviewed the following items bri (where applicable) has been applied. Labs Laboratory Tests Test 06/05/20 13:10 06/06/20 03:50 Sodium Level 137 mmol/L (136-145) 137 mmol/L (136-145) Potassium Level 5.4 mmol/L (3.5-5.1) 5.0 mmol/L (3.5-5.1) Chloride Level 103 mmol/L (98-107) 104 mmol/L (98-107) Carbon Dioxide Level 26 mmol/L (21-32) 23 mmol/L (21-32) Anion Gap 8 (6-14) 10 (6-14) Blood Urea Nitrogen 37 mg/dL (8-26) 37 mg/dL (8-26) Creatinine 2.0 mg/dL (0.7-1.3) 2.1 mg/dL (0.7-1.3) Estimated GFR (Cockcroft-Gault) 32.6 30.8 Glucose Level 90 mg/dL (70-99) 92 mg/dL (70-99) Calcium Level 7.6 mg/dL (8.5-10.1) 7.3 mg/dL (8.5-10.1) Magnesium Level 2.3 mg/dL (1.8-2.4) Medications Current Medications Furosemide (Lasix) 40 mg 1X ONCE IVP Last administered on 06/05/20at 11:47; Start 06/05/20 at 11:30; Stop 06/05/20 at 11:31; Status DC Sodium Polystyrene Sulfonate (Kayexalate) 15 gm 1X ONCE PO Last administered on 06/05/20at 17:35; Start 06/05/20 at 15:15; Stop 06/05/20 at 15:18; Status DC Vitals/I & O Vital Sign - Last 24 Hours 06/05/20 06/05/20 06/05/20 06/05/20 15:00 17:35 19:00 19:25 Temp 97.7 97.5 97.7 97.5 Pulse 78 78 90 Resp 18 18 B/P (MAP) 126/76 (93) 126/76 105/72 (83) Pulse Ox 98 100 O2 Delivery Nasal Cannula Nasal Cannula Nasal Cannula O2 Flow Rate 2.0 2.0 2.0 06/05/20 06/05/20 06/05/20 06/06/20 20:45 20:46 22:11 03:09 Temp 97.9 97.7 97.9 97.7 Pulse 75 77 82 75 Resp 18 18 B/P (MAP) 105/72 105/72 91/60 (70) 102/66 (78) Pulse Ox 95 98 O2 Delivery Room Air Nasal Cannula O2 Flow Rate 2.0 06/06/20 06/06/20 06/06/20 06/06/20 07:00 08:00 08:32 08:33 Temp 98.2 98.2 Pulse 53 53 53 Resp 22 B/P (MAP) 92/63 (73) 92/63 92/63 Pulse Ox 94 O2 Delivery Nasal Cannula Nasal Cannula O2 Flow Rate 2.0 2.0 Intake and Output 06/05/20 06/05/20 06/06/20 14:59 22:59 06:59 Intake Total 350 ml 300 ml Balance 350 ml 300 ml Justifications for Admission Other Justification Nutrition Consultation Dietary Evaluation: Recommendations by RD: Dietary education by RD, Increase Calorie Intake, Protein supplementation Comments: Continue w/cardiac diet as ordered, honor food preferences, provide snacks as requested Continue w/Vit C and MVI as ordered - wound healing REC Magic Cup BID Expected Outcomes/Goals: PO intake to meet >75% est needs Malnutrition Findings: Food and Nutrition Intake (Mod: <75% est energy req 7days Weight Status: Appropriate TEQUILA SIMPSON MD Jun 06, 2020 11:06
--- NOTE | 2020-06-06 11:30 | PDOC ---
Renal-Progress Notes Subjective Notes Notes CONFUSED History of Present Illness Hx of present illness STABLE Vitals Vitals Vital Signs Date Time Temp Pulse Resp B/P (MAP) Pulse Ox O2 Delivery O2 Flow Rate FiO2 06/06/20 11:00 97.5 87 22 119/83 (95) 98 Nasal Cannula 2.0 97.5 Weight Weight [ ] I.O. Intake and Output Intake and Output 06/06/20 07:00 Intake Total 650 ml Balance 650 ml Intake Oral 650 ml # Voids 7 Labs Labs Laboratory Tests Test 06/05/20 13:10 06/06/20 03:50 Sodium Level 137 mmol/L (136-145) 137 mmol/L (136-145) Potassium Level 5.4 mmol/L (3.5-5.1) 5.0 mmol/L (3.5-5.1) Chloride Level 103 mmol/L (98-107) 104 mmol/L (98-107) Carbon Dioxide Level 26 mmol/L (21-32) 23 mmol/L (21-32) Anion Gap 8 (6-14) 10 (6-14) Blood Urea Nitrogen 37 mg/dL (8-26) 37 mg/dL (8-26) Creatinine 2.0 mg/dL (0.7-1.3) 2.1 mg/dL (0.7-1.3) Estimated GFR (Cockcroft-Gault) 32.6 30.8 Glucose Level 90 mg/dL (70-99) 92 mg/dL (70-99) Calcium Level 7.6 mg/dL (8.5-10.1) 7.3 mg/dL (8.5-10.1) Magnesium Level 2.3 mg/dL (1.8-2.4) Review of Systems Constitutional: yes: other (CONFUSED) Physical Exam General Appearance: no apparent distress Skin: warm Respiratory: bilateral CTA Heart: S1S2 Abdomen: soft, bowel sounds present Genitourinary: bladder flat Extremities: edema Neurology: alert, confused Musculoskeletal: Osteoarthritis Assessment Assessment IMP CKD STAGE 3B TO 4-CR STABLE AT 2.1 HYPERKALEMIA-RESOLVED AFIB RVR CHF-PROB DIASTOLIC HTN HX BENIGN LEFT RENAL CYST PLAN CARDIOLOGY EVALUATION INCREASE LASIX TO BID STOPPED K SUPPLEMENTS VICKEY MOSELEY MD Jun 06, 2020 11:30
[2020-06-06] MEDS ORDERED: FUROSEMIDE 40 MG/4 ML VIAL. IVP ONE (12:15)
--- NOTE | 2020-06-06 12:27 | PDOC ---
MARLENE ISLAS [employer] 06/06/20 1227: CARDIO Progress Notes Date and Time Date of Service 06/06/2020 Time of Evaluation 1230 Subjective Subjective: No Chest Pain, No shortness of breath, No Palpitations Vitals Vitals Vital Signs Date Time Temp Pulse Resp B/P (MAP) Pulse Ox O2 Delivery O2 Flow Rate FiO2 06/06/20 11:00 97.5 87 22 119/83 (95) 98 Nasal Cannula 2.0 97.5 Weight Weight [ ] Input and Output Intake and Output Intake and Output 06/06/20 07:00 Intake Total 650 ml Balance 650 ml Intake Oral 650 ml # Voids 7 Laboratory Labs Laboratory Tests Test 06/05/20 13:10 06/06/20 03:50 Sodium Level 137 mmol/L (136-145) 137 mmol/L (136-145) Potassium Level 5.4 mmol/L (3.5-5.1) 5.0 mmol/L (3.5-5.1) Chloride Level 103 mmol/L (98-107) 104 mmol/L (98-107) Carbon Dioxide Level 26 mmol/L (21-32) 23 mmol/L (21-32) Anion Gap 8 (6-14) 10 (6-14) Blood Urea Nitrogen 37 mg/dL (8-26) 37 mg/dL (8-26) Creatinine 2.0 mg/dL (0.7-1.3) 2.1 mg/dL (0.7-1.3) Estimated GFR (Cockcroft-Gault) 32.6 30.8 Glucose Level 90 mg/dL (70-99) 92 mg/dL (70-99) Calcium Level 7.6 mg/dL (8.5-10.1) 7.3 mg/dL (8.5-10.1) Magnesium Level 2.3 mg/dL (1.8-2.4) Review of Systems Constitutional: yes: other (CONFUSED) Physical Exam Chest: Symmetric LUNGS: Other (diminished bases) Heart: irregularly irregular (AFIB rate controlled) Abdomen: Soft N/T Extremities: Other (3+ bilateral LE pitting edema) Neurology: alert, oriented, follow commands, confused (periods) Assessment Assessment 1. Chronic AFIB with RVR: rate remains controlled, Differentials include missed meds, metabolic issues 2. Acute on chronic diastolic CHF: appears compensated. SOA better 3. CHANDRA on CKD3 with mild hyperkalemia: K normal with SPS 4. NSTEMI: possibly type 2, trop 1.3 peaked, EKG afib without acute ST-T wave changes 5. Macrocytic anemia 6. CAD; past CABG, CP free 7. HTN: controlled 8. HLP: lipids on goal 9. Hx of seizures 10. Dyspnea: LE sono negative for DVT. EF is nml but with severely dilated RV possibly from LV dysfunction but with presenting tachycardia and SOA, may also need to consider PE w/u with V/Q scan, defer to PCP 11. Warfarin? true allergy? 12. Hx of orthostasis: on midodrine Recommendations Ischemic workup as an outpt. ASA for stroke prevention, has refused anticoagulation in the past Presently his AFIB is rate controlled with current regimen. Given his marginal to normotensive BP, would not consider restarting cardizem at this time. If he starts becoming tachycardic then would optimize metoprolol first if BP would tolerate. Stop home lisinopril and continue with lasix therapy Continue secondary prevention Follow up with Dr. Black on Jul 02 at 9AM Justicifation of Admission Dx: Justifications for Admission: Justification of Admission Dx: Yes (AFIB WITH RVR) BRITTANY LUBIN MD 06/06/20 [id number]: CARDIO Progress Notes Plan Plan The patient was seen and interviewed as well as examined at the bedside. The chart was reviewed. The case was discussed. Agree with the plan of care. MARLENE ISLAS APRN Jun 06, 2020 12:27 BRITTANY LUBIN MD Jun 06, 2020 17:09
[2020-06-06 15:00] VITALS: BP 113/76
[2020-06-06 19:46] VITALS: BP 118/74
[2020-06-06] MEDS: PHENYTOIN SODIUM EXTENDED 100 MG CAPSULE PO SCH (19:58)
[2020-06-06] MEDS: PHENobarbital 32.4 MG TABLET. PO SCH (19:58)
[2020-06-06] MEDS: SIMVASTATIN 10 MG TABLET PO SCH (19:58)
[2020-06-06 22:29] VITALS: BP 120/76
[2020-06-07 02:16] VITALS: BP 115/66
[2020-06-07 06:00] LABS: CALCIUM 7.4 mg/dL (8.5-10.1); CREATININE 2.1 mg/dL (0.7-1.3); GFR 30.8; MAGNESIUM 2.5 mg/dL (1.8-2.4)
[2020-06-07 07:15] VITALS: BP 103/64
[2020-06-07] MEDS: ZINC SULFATE 220 MG CAPSULE. PO SCH (08:27)
[2020-06-07] MEDS: MULTIVITAMIN with MINERAL TABLET. PO SCH (08:27)
[2020-06-07] MEDS: ASCORBIC ACID 500 MG TABLET PO SCH (08:27)
[2020-06-07] MEDS: METOPROLOL TART IMMED RELEASE 25 MG TABLET. PO SCH (08:28)
[2020-06-07] MEDS: FUROSEMIDE 40 MG TABLET. PO SCH (08:28)
[2020-06-07] MEDS: MIDODRINE 5 MG TABLET PO SCH (08:28)
[2020-06-07] MEDS: ASPIRIN ENTERIC COATED 81 MG TABLET.DR. PO SCH (08:28)
[2020-06-07] MEDS: ENOXAPARIN 30 MG/0.3 ML SYRINGE. SQ SCH (08:30)
--- NOTE | 2020-06-07 08:45 | PDOC ---
PROGRESS NOTES Date of Service: DATE: 06/07/20 TIME: 08:44 Subjective Subjective feels better ok with going to SNU Objective Objective Vital Signs Date Time Temp Pulse Resp B/P (MAP) Pulse Ox O2 Delivery O2 Flow Rate FiO2 06/07/20 08:28 95 103/64 06/07/20 07:15 97.6 18 99 Nasal Cannula 2.0 97.6 Intake and Output 06/07/20 07:00 Intake Total 750 ml Balance 750 ml Intake Oral 750 ml # Voids 6 Physical Exam Abdomen: Normal bowel sounds, Soft, No tenderness Heart: Regular rate Extremities: Other (3+ bilateral LE pitting edema) General: Alert, Oriented X3, Cooperative, No acute distress HEENT: Atraumatic, Mucous membr. moist/pink Lungs: Clear to auscultation, Other (DECREASED AT BASES) MUSCULOSKELETAL: No deformity, Other (3+ EDEMA) Neuro: Other (CONFUSED) Psych/Mental Status: Mental status NL, Other (anxious) Skin: No significant lesion COMMENT 1+ edmea both legs Diagnosis Problem List Problems Medical Problems: (1) Atrial fibrillation with RVR Status: Acute (2) CHF (congestive heart failure) Status: Acute Assessment Assessment Problems Medical Problems: (1) Atrial fibrillation with RVR Status: Acute (2) CHF (congestive heart failure) Status: Acute FINAL IMPRESSION: 1. Atrial fibrillation with rapid ventricular response, acute on chronic. 2. Acute on chronic systolic heart failure. 3. Non-ST elevation myocardial infarction, elevated troponin. 4. Hypertension. 5. History of seizures. 6. Coronary artery disease, history of bypass surgery. 7. Side effects from Coumadin. 8. Chronic kidney disease stage 3, creatinine 2. 9. Hyperkalemia, 5.7. PLAN: D/c to SNU today CT head -ve sono kidneys cyst , venous doppler neg for dvt ECHO , sever TR , pul htn and rt heart failure. Cr 2.1 pot 5.1 down. admit to hospital , we will do an ultrasound of the kidneys, renal consult and to see how the patient improves in the next 24 hours. He was given Lovenox, was given Cardizem drip to control heart rate. Also, echocardiogram for left ventricular function, venous Doppler of lower extremities to rule out DVT. Plan Plan of Care Problems Medical Problems: (1) Atrial fibrillation with RVR Status: Acute (2) CHF (congestive heart failure) Status: Acute Comment Review of Relevant I have reviewed the following items bri (where applicable) has been applied. Labs Laboratory Tests Test 06/07/20 05:00 Sodium Level 136 mmol/L (136-145) Potassium Level 5.0 mmol/L (3.5-5.1) Chloride Level 102 mmol/L (98-107) Carbon Dioxide Level 24 mmol/L (21-32) Anion Gap 10 (6-14) Blood Urea Nitrogen 38 mg/dL (8-26) Creatinine 2.1 mg/dL (0.7-1.3) Estimated GFR (Cockcroft-Gault) 30.8 Glucose Level 86 mg/dL (70-99) Calcium Level 7.4 mg/dL (8.5-10.1) Magnesium Level 2.5 mg/dL (1.8-2.4) Medications Current Medications Diltiazem HCl (Cardizem 24hr Cd) 240 mg DAILY PO ; Start 06/06/20 at 11:15; Stop 06/06/20 at 11:53; Status DC Furosemide (Lasix) 40 mg 1X ONCE IVP Last administered on 06/06/20at 12:40; Start 06/06/20 at 12:15; Stop 06/06/20 at 12:16; Status DC Furosemide (Lasix) 40 mg BID94 PO Last administered on 06/07/20at 08:28; Start 06/06/20 at 16:00 Vitals/I & O Vital Sign - Last 24 Hours 06/06/20 06/06/20 06/06/20 06/06/20 11:00 15:00 15:13 19:46 Temp 97.5 98.0 98.1 97.5 98.0 98.1 Pulse 87 80 87 88 Resp 22 21 18 B/P (MAP) 119/83 (95) 113/76 (88) 119/83 118/74 (89) Pulse Ox 98 97 98 O2 Delivery Nasal Cannula Nasal Cannula Nasal Cannula O2 Flow Rate 2.0 2.0 2.0 06/06/20 06/06/20 06/06/20 06/06/20 19:57 19:58 19:59 22:29 Temp 97.9 97.9 Pulse 88 88 79 Resp 18 B/P (MAP) 118/74 118/74 120/76 (91) Pulse Ox 97 O2 Delivery Nasal Cannula Nasal Cannula O2 Flow Rate 2.0 2.0 06/07/20 06/07/20 06/07/20 06/07/20 02:16 07:15 08:28 08:28 Temp 97.7 97.6 97.7 97.6 Pulse 72 95 95 95 Resp 18 18 B/P (MAP) 115/66 (82) 103/64 (77) 103/64 103/64 Pulse Ox 96 99 O2 Delivery Nasal Cannula Nasal Cannula O2 Flow Rate 2.0 2.0 Intake and Output 06/06/20 06/06/20 06/07/20 15:00 23:00 07:00 Intake Total 450 ml 300 ml Balance 450 ml 300 ml Justifications for Admission Other Justification Nutrition Consultation Dietary Evaluation: Recommendations by RD: Dietary education by RD, Increase Calorie Intake, P rotein supplementation Comments: Continue w/cardiac diet as ordered, honor food preferences, provide snacks as requested Continue w/Vit C and MVI as ordered - wound healing REC Magic Cup BID Expected Outcomes/Goals: PO intake to meet >75% est needs Malnutrition Findings: Food and Nutrition Intake (Mod: <75% est energy req 7days Weight Status: Appropriate TEQUILA SIMPSON MD Jun 07, 2020 08:44
[2020-06-07] MEDS ORDERED: FURO40TA4 PO (08:47)
--- NOTE | 2020-06-07 08:49 | SNU/HH DC ---
DISCHARGE ORDERS DISCHARGE INFORMATION: DISCHARGE DATE: Jun 07, 2020 FINAL DIAGNOSIS Problems Medical Problems: (1) Atrial fibrillation with RVR Status: Acute (2) CHF (congestive heart failure) Status: Acute CONDITION ON DISCHARGE: Stable CODE STATUS: Code Status: Full RESIDENTIAL: SNF STAY <30 DAYS: Yes POST DISCHARGE ORDERS: ACTIVITY ORDERS: Activity as tolerated DIET AFTER DISCHARGE: Cardiac CHECKS AFTER DISCHARGE: CHECKS AFTER DISCHARGE: Check blood press - daily, Weigh Yourself Daily FOLLOW-UP: LAB ORDERS FOR FOLLOW-UP: bmp weekly TREATMENT/EQUIPMENT ORDERS: Physical Therapy For: Evalulation/Treatment DISCHARGE MEDICATIONS: Home Meds Active Scripts Furosemide (FUROSEMIDE) 40 Mg Tablet, 40 MG PO BID94 for chf for 30 Days, TAB Prov:TEQUILA SIMPSON MD 06/07/20 Clindamycin Hcl (CLINDAMYCIN HCL) 150 Mg Capsule, 450 MG PO QID, #120 CAP Prov:MIN GARCIA DO 12/21/16 Phenytoin Sodium Extended (DILANTIN) 100 Mg Capsule, 200 MG PO HS, #60 CAP Prov:PARAS GUADALUPE APRN 05/17/15 Reported Medications Multivitamin (MULTI-VITAMIN DAILY) 1 Each Tablet, 1 TAB PO DAILY for SUPP for 30 Days, #30 TAB 0 Refills 06/04/20 Zinc Sulfate (ZINC-220) 220 Mg Capsule, 220 MG PO DAILY for SUPP, CAP 06/04/20 Midodrine Hcl (MIDODRINE HCL) 5 Mg Tablet, 5 MG PO TID for HYPOTENSION, TAB 06/04/20 Lactobacillus Acidophilus (PROBIOTIC) 1 Each Capsule, 1 CAP PO BID for 10 Days, #20 CAP 0 Refills 06/04/20 Diltiazem Hcl (CARDIZEM TABLET) 60 Mg Tablet, 60 MG PO EVERY 6 HOURS for AFIB, #30 TAB 0 Refills 06/04/20 Ascorbic Acid (VITAMIN C) 100 Mg Tablet, 250 MG PO DAILY, TAB 06/04/20 Aspirin (ASPIR 81) 81 Mg Tablet.dr, 81 MG PO 11/28/13 Simvastatin (SIMVASTATIN) 10 Mg Tablet, 10 MG PO 11/28/13 Pantoprazole Sodium (PANTOPRAZOLE SODIUM ) 40 Mg Tablet.dr, 40 MG PO 11/28/13 Metoprolol Tartrate (METOPROLOL TARTRATE) 25 Mg Tablet, 25 MG PO BID 11/28/13 Phenobarbital (PHENOBARBITAL) 64.8 Mg Tablet, 64.8 MG PO 11/28/13 Discontinued Reported Medications Potassium Chloride (KLOR-CON M20) 20 Meq Tab.er.prt, 1 TAB PO DAILY, #90 TAB 1 Refill 06/16/16 Furosemide (FUROSEMIDE) 40 Mg Tablet, 1 TAB PO DAILY, #30 TAB 5 Refills 06/16/16 Discontinued Scripts Spironolactone (ALDACTONE) 25 Mg Tablet, 25 MG PO DAILY, #30 TAB Prov:PARAS GUADALUPE APRN 05/17/15 TEQUILA SIMPSON MD Jun 07, 2020 08:49
[2020-06-07 10:36] VITALS: BP 99/63
--- NOTE | 2020-06-07 11:00 | NUR ---
Discharge Note: MATTHEW MARTINEZ Discharge instructions and discharge home medications reviewed with [facility] and a copy given. All questions have been answered and understanding verbalized. The following instructions and handouts were given: PCP within one week. F/u Dr. Garay on Jul 02 at 0900. Discontinued lines and drains: Peripheral IV intact. Patient discharged to [facility] with medical transport via personal Wheelchair. Pt glasses and wheelchair only personal belongings with patient at the time of discharge. Pt son notified of discharge by [facility].
--- NOTE | 2020-06-11 19:38 | PDOC ---
Provider Note Date of Service: DATE: 06/11/20 TIME: 19:38 Provider Note Discharge summary dictated.#[id number]. Justifications for Admission Other Justification TEQUILA SIMPSON MD Jun 11, 2020 19:38
--- NOTE | 2020-06-11 20:36 | DS ---
DATE OF DISCHARGE: 06/07/2020 REASON FOR ADMISSION TO THE HOSPITAL: 1. Atrial fibrillation with rapid ventricular response. 2. Non-ST elevation myocardial infarction. CONSULTATION: Pierre Mcguire M.D. PROCEDURES DONE: 1. Echocardiogram. 2. CT head. 3. Ultrasound of the kidneys. 4. Lower extremity ultrasound. HOSPITAL COURSE: The patient is a 79-year-old male with history of previous coronary artery disease, bypass surgery. He also has atrial fibrillation in the past, but he did not tolerate anticoagulation. Had history of bleeding in the past, diverticular bleeding, patient stopped. He has been at , had extensive workup recently and then he went to [facility]. He developed chest pain with a heart rate, was sent to the hospital, was found to have new onset of atrial fibrillation with rapid ventricular response. The patient was given Cardizem drip and his cardiac enzymes shows troponin peaked to 1.3. The patient was given Lovenox subcutaneous and also his creatinine was high at 2.0. The patient had an echocardiogram, which shows ejection fraction 60%. Right ventricle is dilated, moderate tricuspid regurgitation, moderate pulmonary hypertension, PA pressure was 50. The patient was seen by Cardiology. Heart rate improved with Cardizem. The patient was feeling better. At one time, he was having some problems with weakness, had a CT head did not show any stroke or ischemic and had ultrasound of the kidneys with renal failure, which shows a cyst in the left kidney, 1.5 cm. Bladder is slightly distended. Had a venous Doppler negative for deep venous thrombosis. Chest x-ray shows congestive heart failure with pleural effusion. On the whole, the patient's condition improved and he is weak and it was felt that he could be discharged back to [facility] and the patient's is sick at home and the family could not take care of both him and his , so the patient was sent back to assisted facility to see if we can improve his condition. FINAL DIAGNOSES: 1. Atrial fibrillation with rapid ventricular response. 2. Non-ST elevation myocardial infarction, elevated troponin. 3. Diastolic heart failure. 4. Pulmonary hypertension with tricuspid regurgitation, moderate. 5. Bypass surgery. 6. Seizures. 7. Chronic kidney disease around 2-2.3 creatinine and the patient is discharged. The patient is not a candidate for anticoagulation because of his previous bleeding and sent on aspirin, metoprolol and Cardizem. TEQUILA SIMPSON MD DR: RANDA/chris JOB#: [id number] / [id number]
== END 2020-06-07 11:00 | DRG 280 ==
LOC: ER 13:34 → 2 NORTH 15:00
PROVIDERS: ADMIT Internal Medicine; ATTEND Internal Medicine
DX: I21.4 Non-ST elevation (NSTEMI) myocardial infarction (principal); I50.43 Acute on chronic combined systolic (congestive) and diastolic (congestive) heart failure; N17.9 Acute kidney failure, unspecified; I13.0 Hypertensive heart and chronic kidney disease with heart failure and stage 1 through stage 4 chronic kidney disease, or unspecified chronic kidney disease; I48.20 Chronic atrial fibrillation, unspecified; N18.4 Chronic kidney disease, stage 4 (severe); N40.0 Benign prostatic hyperplasia without lower urinary tract symptoms; I25.10 Atherosclerotic heart disease of native coronary artery without angina pectoris; G40.909 Epilepsy, unspecified, not intractable, without status epilepticus; N28.1 Cyst of kidney, acquired; E78.5 Hyperlipidemia, unspecified; E87.5 Hyperkalemia; E78.00 Pure hypercholesterolemia, unspecified; E11.22 Type 2 diabetes mellitus with diabetic chronic kidney disease; D53.9 Nutritional anemia, unspecified; F32.9 Major depressive disorder, single episode, unspecified; M19.90 Unspecified osteoarthritis, unspecified site; K44.9 Diaphragmatic hernia without obstruction or gangrene; K21.9 Gastro-esophageal reflux disease without esophagitis; Z20.828 Contact with and (suspected) exposure to other viral communicable diseases; Z87.01 Personal history of pneumonia (recurrent); Z79.899 Other long term (current) drug therapy; Z95.1 Presence of aortocoronary bypass graft; Z87.891 Personal history of nicotine dependence; Z86.73 Personal history of transient ischemic attack (TIA), and cerebral infarction without residual deficits; Z82.49 Family history of ischemic heart disease and other diseases of the circulatory system; Z79.01 Long term (current) use of anticoagulants
CPT/HCPCS: 36415; 70450; 71045; 76770; 80048; 80053; 80061; 80184; 80185; 83735; 83880; 84439; 84443; 84484; 85007; 85025; 93005; 93306; 93970; 96365; 96375; 99285; J1160; J1650; J1940; J3490; 97110-GO; 97110-GP; 97530-GP; 97535-GO; G0378; U0003-CS

== ENCOUNTER 2020-06-07 18:06 | Inpatient (IN) | payer MEDICARE ==
[~2020-06-07] VITALS: Ht 167.6 cm; Wt 62.4 kg
[~2020-06-07 18:06] MED LIST changes: +ASCO100T4 PO; +DILT60TA3 PO; +LACT1CAP6 PO; +MIDO5TAB4 PO; +MULT-246 PO; +ZINC220C4 PO
--- NOTE | 2020-06-07 18:22 | PHYS DOC ---
Past Medical History Past Medical History: CAD, High Cholesterol, Heart Disease, Hypertension, Seizure, Stroke Past Surgical History: Coronary Bypass Surgery Smoking Status: Former Smoker Alcohol Use: None Drug Use: None General Adult EDM: Chief Complaint: diffuse pain HPI: HPI: Patient is a 79 year old female who presents with a chief complaint of pain all over. Per EMS the nursing facility says he had chest pain but on my exam pat lucina says he hurts everywhere and has 8 out of 10 pain. History physical and review of systems are limited to poor cooperation and altered mental status. According to records patient was just discharged from this facility for A. fib with RVR earlier today. Review of Systems: Review of Systems: Review of systems unobtainable due to altered mental status and poor cooperation but patient endorses pain everywhere Heart Score: HEART Score for Chest Pain: HEART Score for Chest Pain Response (Comments) Value History Slighlty/Non-Suspicious 0 ECG Nonspecific Repolarizatio 1 Age > 65 2 Risk Factors >3 Risk Factors or Hx CAD 2 Troponin >1-<3x Normal Limit 1 Total 6 Risk Factors: Risk Factors: DM, Current or recent (<one month) smoker, HTN, HLP, family history of CAD, obesity. Risk Scores: Score 0 - 3: 2.5% MACE over next 6 weeks - Discharge Home Score 4 - 6: 20.3% MACE over next 6 weeks - Admit for Clinical Observation Score 7 - 10: 72.7% MACE over next 6 weeks - Early Invasive Strategies Allergies: Allergies: Allergies Coded Allergies Type Severity Reaction Last Updated Verified Sulfa (Sulfonamide Antibiotics) Adverse Reaction Intermediate HALLUCINATIONS 05/14/15 Yes morphine Adverse Reaction Intermediate HALLUCINATIONS 05/14/15 Yes warfarin Adverse Reaction Intermediate GI bleeding 12/21/16 Yes Physical Exam: PE: Constitutional: Frail, cachectic HENT: Normocephalic, atraumatic, bilateral external ears normal, oropharynx moist, no oral exudates, nose normal. [] Eyes: PERRLA, EOMI, conjunctiva normal, no discharge. [] Neck: Normal range of motion, no tenderness, supple, no stridor. [] Cardiovascular: Irregularly irregular, peripheral pulses intact, cap refill brisk Lungs & Thorax: Bilateral breath sounds clear, no respiratory distress Abdomen: Bowel sounds normal, soft, no tenderness, no masses, no pulsatile masses. [] Skin: Mildly pale Back: No tenderness, no CVA tenderness. [] Extremities: 2+ bilateral extremity edema Neurologic: Alert but somewhat confused, moves all extremities with no new focal neurological deficits Psychologic: Blunted mood Current Patient Data: Labs: Laboratory Tests Test 06/07/20 19:22 06/07/20 19:30 06/07/20 20:15 White Blood Count 6.1 x10^3/uL Red Blood Count 2.71 x10^6/uL Hemoglobin 9.5 g/dL Hematocrit 28.0 % Mean Corpuscular Volume 103 fL Mean Corpuscular Hemoglobin 35 pg Mean Corpuscular Hemoglobin Concent 34 g/dL Red Cell Distribution Width 18.0 % Platelet Count 403 x10^3/uL Neutrophils (%) (Auto) 81 % Lymphocytes (%) (Auto) 8 % Monocytes (%) (Auto) 8 % Eosinophils (%) (Auto) 3 % Basophils (%) (Auto) 0 % Neutrophils # (Auto) 4.9 x10^3/uL Lymphocytes # (Auto) 0.5 x10^3/uL Monocytes # (Auto) 0.5 x10^3/uL Eosinophils # (Auto) 0.2 x10^3/uL Basophils # (Auto) 0.0 x10^3/uL Bedside Troponin I 0.32 ng/ml Prothrombin Time 14.4 SEC Prothromb Time International Ratio 1.2 Activated Partial Thromboplast Time 35 SEC Sodium Level 136 mmol/L Potassium Level 4.7 mmol/L Chloride Level 102 mmol/L Carbon Dioxide Level 27 mmol/L Anion Gap 7 Blood Urea Nitrogen 38 mg/dL Creatinine 1.8 mg/dL Estimated GFR (Cockcroft-Gault) 36.8 BUN/Creatinine Ratio 21 Glucose Level 108 mg/dL Calcium Level 7.2 mg/dL Magnesium Level 2.1 mg/dL Total Bilirubin 0.3 mg/dL Aspartate Amino Transf (AST/SGOT) 21 U/L Alanine Aminotransferase (ALT/SGPT) 30 U/L Alkaline Phosphatase 158 U/L Ammonia < 10 mcmol/L Troponin I Quantitative 0.493 ng/mL TP-Ocu-F-Type Natriuretic Peptide > 94517 pg/mL Total Protein 6.1 g/dL Albumin 2.5 g/dL Albumin/Globulin Ratio 0.7 Lipase 317 U/L Current Medications Medications (Trade) Dose Ordered Sig/Omkar Route PRN Reason Start Time Stop Time Status Last Admin Dose Admin Aspirin (Trupti Aspirin) 325 mg 1X ONCE PO 06/07/20 20:00 06/07/20 20:01 DC 06/07/20 20:30 Vital Signs: Vital Signs Date Time Temp Pulse Resp B/P (MAP) Pulse Ox O2 Delivery O2 Flow Rate FiO2 06/07/20 18:06 98.2 92 14 98/65 (76) 96 Room Air 98.2 EKG: EKG: EKG interpreted by me atrial fibrillation. 96 low voltage right axis deviation nonspecific ST changes prolonged QTC [] Radiology/Procedures: Radiology/Procedures: [][facility] [address] [place] [address] IMAGING REPORT Signed PATIENT: MATTHEW MARTINEZ ACCOUNT: [id number] : 1940 LOCATION: ER AGE: 79 SEX: M EXAM STATUS: PRE ER ORD. PHYSICIAN: MIN RODRÍGUEZ MD REASON: cp PROCEDURE: PORTABLE CHEST 1V EXAM: AP View of the chest DATE: 06/07/2020 6:32 PM INDICATION: Chest pain COMPARISON: 06/04/2020 FINDINGS: Heart is mildly enlarged. Aorta is tortuous with atherosclerotic calcifications. Bilateral perihilar and left greater than right lung base airspace opacities. Small left pleural effusion. Trace right pleural effusion. No pneumothorax. IMPRESSION: Bilateral airspace opacities with cardiomegaly and pleural effusions may be seen with pulmonary edema. Alternatively multifocal consolidative process may also have this appearance. Imaging follow-up to resolution is recommended. Electronically signed by: Caesar Moncada MD (06/07/2020 7:19 PM) [facility] DICTATED and SIGNED BY: CAESAR MONCADA MD DATE: 06/07/201918 Course & Med Decision Making: Course & Med Decision Making Pertinent Labs and Imaging studies reviewed. (See chart for details) [] 79-year-old male presents with chest pain and whole body pain. Patient was recently admitted and discharged. Patient's work-up reveals a still elevated troponin. Discussed case with Dr. Savage who will place patient observation. Dragon Disclaimer: Dragcherrie Disclaimer: This electronic medical record was generated, in whole or in part, using a voice recognition dictation system. Departure Departure Impression: Primary Impression: Chest pain Disposition: 09 ADMITTED INPATIENT Admitting Physician: Benjamín Savage Condition: STABLE Referrals: TEQUILA SIMPSON MD (PCP) Justicifation of Admission Dx: Justifications for Admission: Justification of Admission Dx: Yes (CHEST PAIN) MIN RODRÍGUEZ MD Jun 07, 2020 18:22
--- NOTE | 2020-06-07 19:22 | RAD ---
EXAM: AP View of the chest DATE: 06/07/2020 6:32 PM INDICATION: Chest pain COMPARISON: 06/04/2020 FINDINGS: Heart is mildly enlarged. Aorta is tortuous with atherosclerotic calcifications. Bilateral perihilar and left greater than right lung base airspace opacities. Small left pleural effusion. Trace right pleural effusion. No pneumothorax. IMPRESSION: Bilateral airspace opacities with cardiomegaly and pleural effusions may be seen with pulmonary edema. Alternatively multifocal consolidative process may also have this appearance. Imaging follow-up to resolution is recommended. Electronically signed by: Caesar Chowdary MD (06/07/2020 7:19 PM) KAT[facility]
[2020-06-07 19:34] LABS: BASO % 0 % (0-3); EOS # 0.2 x10^3/uL (0.0-0.7); EOS % 3 % (0-3); HEMOGLOBIN 9.5 g/dL (13.0-17.5); LYMPH # 0.5 x10^3/uL (1.0-4.8); LYMPH % 8 % (24-48); MEAN CORPUSCULAR HEMOGLOBIN 35 pg (25-35); MEAN CORPUSCULAR HGB CONC 34 g/dL (31-37); MEAN CORPUSCULAR VOLUME 103 fL (79-100); MONO # 0.5 x10^3/uL (0.0-1.1); MONO % 8 % (0-9); NEUT # 4.9 x10^3/uL (1.8-7.7); NEUT % 81 % (31-73); PLATELET COUNT 403 x10^3/uL (140-400); RED BLOOD COUNT 2.71 x10^6/uL (4.30-5.70); WHITE BLOOD COUNT 6.1 x10^3/uL (4.0-11.0)
[2020-06-07] MEDS ORDERED: ASPIRIN 325 MG TABLET PO ONE (20:00)
[2020-06-07 20:39] LABS: PROTHROMBIN TIME PATIENT 14.4 SEC (11.7-14.0)
[2020-06-07 20:48] LABS: CALCIUM 7.2 mg/dL (8.5-10.1); CREATININE 1.8 mg/dL (0.7-1.3); GFR 36.8; POTASSIUM 4.7 mmol/L (3.5-5.1)
[2020-06-07 20:53] LABS: ALBUMIN 2.5 g/dL (3.4-5.0); ALBUMIN/GLOBULIN RATIO 0.7 (1.0-1.7); MAGNESIUM 2.1 mg/dL (1.8-2.4); TOTAL BILIRUBIN 0.3 mg/dL (0.2-1.0); TOTAL PROTEIN 6.1 g/dL (6.4-8.2)
[2020-06-07 22:24] VITALS: BP 110/69
[2020-06-08 03:45] VITALS: BP 113/70
[2020-06-08 07:00] VITALS: BP 114/67
--- NOTE | 2020-06-08 07:03 | EKG ---
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
[2020-06-08] MEDS: PANTOPRAZOLE 40 MG TABLET.DR. PO SCH (10:29)
[2020-06-08] MEDS: LACTOBACILLUS RHAMNOSUS GG 1 CAPSULE. PO SCH ×2 (10:29→20:42)
[2020-06-08] MEDS: METOPROLOL TART IMMED RELEASE 25 MG TABLET. PO SCH ×2 (10:29→23:12)
[2020-06-08] MEDS: ZINC SULFATE 220 MG CAPSULE. PO SCH (10:29)
[2020-06-08] MEDS: ASPIRIN ENTERIC COATED 81 MG TABLET.DR. PO SCH (10:29)
[2020-06-08] MEDS: MULTIVITAMIN with MINERAL TABLET. PO SCH (10:29)
[2020-06-08] MEDS: ASCORBIC ACID 500 MG TABLET PO SCH (10:29)
--- NOTE | 2020-06-08 10:37 | SNU/HH DC ---
DISCHARGE ORDERS DISCHARGE INFORMATION: FINAL DIAGNOSIS Problems Medical Problems: (1) Chest pain Status: Acute CONDITION ON DISCHARGE: Stable POST DISCHARGE ORDERS: ACTIVITY ORDERS: Resume previous activity DIET AFTER DISCHARGE: Cardiac (ADA) CHECKS AFTER DISCHARGE: CHECKS AFTER DISCHARGE: Check blood press - daily, Check blood sugar, ac/hs, Weigh Yourself Daily FOLLOW-UP: LAB ORDERS FOR FOLLOW-UP: bmp weekly TREATMENT/EQUIPMENT ORDERS: Physical Therapy For: Evalulation/Treatment DISCHARGE MEDICATIONS: Home Meds Active Scripts Furosemide (FUROSEMIDE) 40 Mg Tablet, 40 MG PO BID94 for chf for 30 Days, TAB Prov:TEQUILA SIMPSON MD 06/07/20 Clindamycin Hcl (CLINDAMYCIN HCL) 150 Mg Capsule, 450 MG PO QID, #120 CAP Prov:MIN GARCIA DO 12/21/16 Phenytoin Sodium Extended (DILANTIN) 100 Mg Capsule, 200 MG PO HS, #60 CAP Prov:APRAS GUADALUPE APRN 05/17/15 Reported Medications Multivitamin (MULTI-VITAMIN DAILY) 1 Each Tablet, 1 TAB PO DAILY for SUPP for 30 Days, #30 TAB 0 Refills 06/04/20 Zinc Sulfate (ZINC-220) 220 Mg Capsule, 220 MG PO DAILY for SUPP, CAP 06/04/20 Midodrine Hcl (MIDODRINE HCL) 5 Mg Tablet, 5 MG PO TID for HYPOTENSION, TAB 06/04/20 Lactobacillus Acidophilus (PROBIOTIC) 1 Each Capsule, 1 CAP PO BID for 10 Days, #20 CAP 0 Refills 06/04/20 Diltiazem Hcl (CARDIZEM TABLET) 60 Mg Tablet, 60 MG PO EVERY 6 HOURS for AFIB, #30 TAB 0 Refills 06/04/20 Ascorbic Acid (VITAMIN C) 100 Mg Tablet, 250 MG PO DAILY, TAB 06/04/20 Aspirin (ASPIR 81) 81 Mg Tablet.dr, 81 MG PO 11/28/13 Simvastatin (SIMVASTATIN) 10 Mg Tablet, 10 MG PO 11/28/13 Pantoprazole Sodium (PANTOPRAZOLE SODIUM ) 40 Mg Tablet.dr, 40 MG PO 11/28/13 Metoprolol Tartrate (METOPROLOL TARTRATE) 25 Mg Tablet, 25 MG PO BID 11/28/13 Phenobarbital (PHENOBARBITAL) 64.8 Mg Tablet, 64.8 MG PO 11/28/13 Discontinued Reported Medications Potassium Chloride (KLOR-CON M20) 20 Meq Tab.er.prt, 1 TAB PO DAILY, #90 TAB 1 Refill 06/16/16 Furosemide (FUROSEMIDE) 40 Mg Tablet, 1 TAB PO DAILY, #30 TAB 5 Refills 06/16/16 Discontinued Scripts Spironolactone (ALDACTONE) 25 Mg Tablet, 25 MG PO DAILY, #30 TAB Prov:PARAS GUADALUPE APRN 05/17/15 TAMELA ULLOA MD Jun 08, 2020 10:37
[2020-06-08 10:43] VITALS: BP 99/62
[2020-06-08] MEDS ORDERED: FUROSEMIDE 40 MG/4 ML VIAL. IVP ONE (11:00)
--- NOTE | 2020-06-08 11:09 | PDOC ---
Provider Note Date of Service: DATE: 06/08/20 TIME: 11:08 Provider Note H&P [id number] Justifications for Admission Other Justification TAMELA ULLOA MD Jun 08, 2020 11:09
--- NOTE | 2020-06-08 11:37 | HP ---
ADMIT DATE: 06/08/2020 HISTORY OF PRESENT ILLNESS: This 79-year-old male who was just admitted here on 06/04 because of acute on chronic systolic congestive heart failure along with atrial fibrillation with fast ventricular rate, was sent to intermediate unit yesterday. However, within 2 hours, the patient was brought back to the Emergency Room with the statement by the EMS that he had chest pains. As per the ER physician, the patient complained of pain all over the body. This morning also, the patient states that he does not have chest pain, but he has pain all over the body. As per staff, he has been extremely weak and he is a two-person assist. He wants to transfer. The patient is not very clear in his thoughts, but he wants to go home and does not want to go to a fci. He states that when he went there, he got scared and anxious and started crying. He was then sent back to the Emergency Room. In the Emergency Room, BUN was 38, creatinine 1.8, BNP more than 35,000, albumin 2.5, sodium 136, potassium 4.7, troponin was 0.493 and 0.492. During the previous admission, the troponin was initially 1.3 and it decreased to 0.8. Ammonia level is less than 10. WBC count was 6.1, hemoglobin 9.5. Chest x-ray showed bilateral pleural effusion and bilateral airspace opacities. Because of the congestive heart failure, weakness and multiple issues and possibility of chest pain, the patient was admitted for further evaluation and management. REVIEW OF SYSTEMS: At present time, the patient is anxious, depressed, remains very weak and wants to go back home. He is not sure what he would do if he gets worse at home. He denies any chest pains or dyspnea at this time, although obviously he does appear to be very weak. He admits to some pain. He denies any nausea, vomiting, cold, cough, congestion, abdominal pain, diarrhea or constipation. Other systems reviewed and are negative. PAST MEDICAL HISTORY: Just discharged after being treated for atrial fibrillation with fast ventricular rate, acute on chronic systolic congestive heart failure, anxiety, non-ST elevation myocardial infarction with elevated troponin, hypertension, history of seizures, coronary artery disease, history of bypass surgery, chronic kidney disease stage 3, and hyperkalemia. His echocardiogram on the last admission showed severe tricuspid regurgitation, pulmonary hypertension and right heart failure. PAST SURGICAL HISTORY: The patient previously had coronary artery bypass graft surgery in 2012, right eye surgery. FAMILY HISTORY: Positive for coronary artery disease. SOCIAL HISTORY: The patient quit smoking cigars recently. No history of alcoholism. The patient's is on hospice. The patient was recently at the fci. ALLERGIES: SULFA, MORPHINE, AND COUMADIN. MEDICATIONS: Reviewed and reconciled. PHYSICAL EXAMINATION: GENERAL: The patient is an elderly male who is alert, anxious, depressed, and in mild distress. He is chronically ill. VITAL SIGNS: Temperature 97.5, pulse 92 per minute, respirations 18 per minute, blood pressure 113/70 mmHg. The patient is alert and not in any acute distress. He may have some cognitive deficits. EYES: Pupils reacting to light. Conjunctivae pale. Sclerae muddy. HENT: Mild congestion of throat. NECK: JVP normal. No thyromegaly. LUNGS: Decreased breath sounds at bases. CARDIOVASCULAR: S1, S2 irregular. ABDOMEN: Soft, nontender, bowel sounds present. EXTREMITIES: 2+ edema bilaterally. CENTRAL NERVOUS SYSTEM: Weak and anxious. LABORATORY FINDINGS: As noted earlier. IMPRESSION: 1. Acute on chronic systolic congestive heart failure. 2. Atrial fibrillation. 3. Non-ST elevation myocardial infarction. Troponin level is actually improving. 4. Hypertension. 5. Physical deconditioning. 6. History of seizures. 7. Coronary artery disease, history of bypass surgery. 8. Chronic kidney disease, stage 3. PLAN: Consult Dr. Garay for Cardiology evaluation and management. I have asked the staff to give Lasix 40 mg IV x 1. Recheck labs in a.m. Prognosis of this patient is extremely poor. The patient does not want to go back to the fci. He remains extremely weak and I am not sure if the family would be able to manage him at home. We will consult outreach and education social worker. Discussed with the staff. For details, please refer to the orders. Order PT, OT and consultation with Dr. Vera for rehab evaluation and management. TAMELA ULLOA MD DR: CARLIN/chris JOB#: [id number] / [id number]
[2020-06-08] MEDS: dilTIAZem HCL 30 MG TABLET PO SCH ×2 (12:19→17:05)
[2020-06-08] MEDS ORDERED: CLINDAMYCIN HCL 150 MG CAPSULE. PO SCH (13:00)
[2020-06-08] MEDS: MIDODRINE 5 MG TABLET PO SCH ×2 (13:31→20:47)
--- NOTE | 2020-06-08 14:36 | PDOC ---
PROGRESS NOTES Date of Service DATE: 06/08/20 TIME: 14:31 Subjective Subjective Patient seen and examined Objective Objective Vital Signs Date Time Temp Pulse Resp B/P (MAP) Pulse Ox O2 Delivery O2 Flow Rate FiO2 06/08/20 13:31 95 111/72 06/08/20 10:43 98.7 16 96 Room Air 98.7 Intake and Output 06/08/20 07:00 # Voids 3 Physical Exam Abdomen: Normal bowel sounds Heart: Other (Irregularly irregular) General: mild distress Lungs: Other (Mildly decreased breath sounds) Assessment Assessment Problems Medical Problems: (1) Chest pain Status: Acute The patient was discharged yesterday and readmitted several hours later with complaints of chest and body pains. His chest pain has resolved. Troponins continue minimally elevated 0.493. BNP is significantly elevated at greater than 35,000. Chronic AFIB with mildly increased rate. We will continue to monitor and adjust meds as needed. Acute on chronic diastolic CHF. Additional Lasix dose. Echocardiogram from 06/05/2020 showed an ejection fraction of 55 to 60% with diastolic dysfunction and moderate tricuspid regurgitation with a PA P of 49 mmHg Chronic kidney disease. Monitoring lab. 3. CHANDRA on CKD3 with mild hyperkalemia NSTEMI: possibly type 2, trop 1.3 peaked 3 days ago, EKG afib without acute ST-T wave changes CAD; past CABG, CP free now HTN: controlled HLP: lipids on goal Comment Review of Relevant I have reviewed the following items bri (where applicable) has been applied. Labs Laboratory Tests Test 06/07/20 19:22 06/07/20 19:30 06/07/20 20:15 06/08/20 00:40 White Blood Count 6.1 x10^3/uL (4.0-11.0) Red Blood Count 2.71 x10^6/uL (4.30-5.70) Hemoglobin 9.5 g/dL (13.0-17.5) Hematocrit 28.0 % (39.0-53.0) Mean Corpuscular Volume 103 fL (79-100) Mean Corpuscular Hemoglobin 35 pg (25-35) Mean Corpuscular Hemoglobin Concent 34 g/dL (31-37) Red Cell Distribution Width 18.0 % (11.5-14.5) Platelet Count 403 x10^3/uL (140-400) Neutrophils (%) (Auto) 81 % (31-73) Lymphocytes (%) (Auto) 8 % (24-48) Monocytes (%) (Auto) 8 % (0-9) Eosinophils (%) (Auto) 3 % (0-3) Basophils (%) (Auto) 0 % (0-3) Neutrophils # (Auto) 4.9 x10^3/uL (1.8-7.7) Lymphocytes # (Auto) 0.5 x10^3/uL (1.0-4.8) Monocytes # (Auto) 0.5 x10^3/uL (0.0-1.1) Eosinophils # (Auto) 0.2 x10^3/uL (0.0-0.7) Basophils # (Auto) 0.0 x10^3/uL (0.0-0.2) Bedside Troponin I 0.32 ng/ml (<0.08) Prothrombin Time 14.4 SEC (11.7-14.0) Prothromb Time International Ratio 1.2 (0.8-1.1) Activated Partial Thromboplast Time 35 SEC (24-38) Sodium Level 136 mmol/L (136-145) Potassium Level 4.7 mmol/L (3.5-5.1) Chloride Level 102 mmol/L (98-107) Carbon Dioxide Level 27 mmol/L (21-32) Anion Gap 7 (6-14) Blood Urea Nitrogen 38 mg/dL (8-26) Creatinine 1.8 mg/dL (0.7-1.3) Estimated GFR (Cockcroft-Gault) 36.8 BUN/Creatinine Ratio 21 (6-20) Glucose Level 108 mg/dL (70-99) Calcium Level 7.2 mg/dL (8.5-10.1) Magnesium Level 2.1 mg/dL (1.8-2.4) Total Bilirubin 0.3 mg/dL (0.2-1.0) Aspartate Amino Transf (AST/SGOT) 21 U/L (15-37) Alanine Aminotransferase (ALT/SGPT) 30 U/L (16-63) Alkaline Phosphatase 158 U/L (46-116) Ammonia < 10 mcmol/L (11-34) Troponin I Quantitative 0.493 ng/mL (0.000-0.055) 0.492 ng/mL (0.000-0.055) OX-Svi-[id number]-Type Natriuretic Peptide > 35977 pg/mL (0-449) Total Protein 6.1 g/dL (6.4-8.2) Albumin 2.5 g/dL (3.4-5.0) Albumin/Globulin Ratio 0.7 (1.0-1.7) Lipase 317 U/L (73-393) Laboratory Tests Test 06/07/20 19:22 06/07/20 19:30 06/07/20 20:15 06/08/20 00:40 White Blood Count 6.1 x10^3/uL (4.0-11.0) Red Blood Count 2.71 x10^6/uL (4.30-5.70) Hemoglobin 9.5 g/dL (13.0-17.5) Hematocrit 28.0 % (39.0-53.0) Mean Corpuscular Volume 103 fL (79-100) Mean Corpuscular Hemoglobin 35 pg (25-35) Mean Corpuscular Hemoglobin Concent 34 g/dL (31-37) Red Cell Distribution Width 18.0 % (11.5-14.5) Platelet Count 403 x10^3/uL (140-400) Neutrophils (%) (Auto) 81 % (31-73) Lymphocytes (%) (Auto) 8 % (24-48) Monocytes (%) (Auto) 8 % (0-9) Eosinophils (%) (Auto) 3 % (0-3) Basophils (%) (Auto) 0 % (0-3) Neutrophils # (Auto) 4.9 x10^3/uL (1.8-7.7) Lymphocytes # (Auto) 0.5 x10^3/uL (1.0-4.8) Monocytes # (Auto) 0.5 x10^3/uL (0.0-1.1) Eosinophils # (Auto) 0.2 x10^3/uL (0.0-0.7) Basophils # (Auto) 0.0 x10^3/uL (0.0-0.2) Bedside Troponin I 0.32 ng/ml (<0.08) Prothrombin Time 14.4 SEC (11.7-14.0) Prothromb Time International Ratio 1.2 (0.8-1.1) Activated Partial Thromboplast Time 35 SEC (24-38) Sodium Level 136 mmol/L (136-145) Potassium Level 4.7 mmol/L (3.5-5.1) Chloride Level 102 mmol/L (98-107) Carbon Dioxide Level 27 mmol/L (21-32) Anion Gap 7 (6-14) Blood Urea Nitrogen 38 mg/dL (8-26) Creatinine 1.8 mg/dL (0.7-1.3) Estimated GFR (Cockcroft-Gault) 36.8 BUN/Creatinine Ratio 21 (6-20) Glucose Level 108 mg/dL (70-99) Calcium Level 7.2 mg/dL (8.5-10.1) Magnesium Level 2.1 mg/dL (1.8-2.4) Total Bilirubin 0.3 mg/dL (0.2-1.0) Aspartate Amino Transf (AST/SGOT) 21 U/L (15-37) Alanine Aminotransferase (ALT/SGPT) 30 U/L (16-63) Alkaline Phosphatase 158 U/L (46-116) Ammonia < 10 mcmol/L (11-34) Troponin I Quantitative 0.493 ng/mL (0.000-0.055) 0.492 ng/mL (0.000-0.055) LP-Jqp-B-Type Natriuretic Peptide > 51732 pg/mL (0-449) Total Protein 6.1 g/dL (6.4-8.2) Albumin 2.5 g/dL (3.4-5.0) Albumin/Globulin Ratio 0.7 (1.0-1.7) Lipase 317 U/L (73-393) Medications Current Medications Aspirin (Trupti Aspirin) 325 mg 1X ONCE PO Last administered on 06/07/20at 20:30; Start 06/07/20 at 20:00; Stop 06/07/20 at 20:01; Status DC Aspirin (Ecotrin) 81 mg DAILY PO Last administered on 06/08/20at 10:29; Start 06/08/20 at 10:00 Clindamycin HCl (Cleocin) 450 mg QID PO ; Start 06/08/20 at 13:00 Furosemide (Lasix) 40 mg BID94 PO ; Start 06/08/20 at 16:00 Metoprolol Tartrate (Lopressor) 25 mg BID PO Last administered on 06/08/20 10:29; Start 06/08/20 at 10:00 Midodrine (Proamatine) 5 mg TID PO Last administered on 06/08/20at 13:31; Start 06/08/20 at 14:00 Pantoprazole Sodium (Protonix) 40 mg DAILYWBKFT PO Last administered on 06/08/20at 10:29; Start 06/08/20 at 10:00 Phenytoin Sodium (Dilantin) 200 mg HS PO ; Start 06/08/20 at 21:00 Simvastatin (Zocor) 10 mg HS PO ; Start 06/08/20 at 21:00 Zinc Sulfate (Orazinc) 220 mg DAILY PO Last administered on 06/08/20 10:29; Start 06/08/20 at 10:00 Ascorbic Acid (Vitamin C) 250 mg DAILY PO Last administered on 06/08/20at 10:29; Start 06/08/20 at 10:00 Diltiazem HCl (Cardizem) 60 mg Q6HRS PO Last administered on 06/08/20at 12:19; Start 06/08/20 at 12:00 Lactobacillus Rhamnosus (Culturelle) 1 cap BID PO Last administered on 06/08/20 10:29; Start 06/08/20 at 10:00 Multivitamins (Thera M Plus) 1 tab DAILY PO Last administered on 06/08/20 10:29; Start 06/08/20 at 10:00 Furosemide (Lasix) 40 mg 1X ONCE IVP Last administered on 06/08/20at 12:19; Start 06/08/20 at 11:00; Stop 06/08/20 at 11:03; Status DC Active Scripts Active Furosemide 40 Mg Tablet 40 Mg PO BID94 30 Days Clindamycin Hcl 150 Mg Capsule 450 Mg PO QID Dilantin (Phenytoin Sodium Extended) 100 Mg Capsule 200 Mg PO HS Reported Multi-Vitamin Daily (Multivitamin) 1 Each Tablet 1 Tab PO DAILY 30 Days Zinc-220 (Zinc Sulfate) 220 Mg Capsule 220 Mg PO DAILY Midodrine Hcl 5 Mg Tablet 5 Mg PO TID Probiotic (Lactobacillus Acidophilus) 1 Each Capsule 1 Cap PO BID 10 Days Cardizem Tablet (Diltiazem Hcl) 60 Mg Tablet 60 Mg PO EVERY 6 HOURS Vitamin C (Ascorbic Acid) 100 Mg Tablet 250 Mg PO DAILY Aspir 81 (Aspirin) 81 Mg Tablet.dr 81 Mg PO Simvastatin 10 Mg Tablet 10 Mg PO Pantoprazole Sodium (Pantoprazole Sodium) 40 Mg Tablet.dr 40 Mg PO Metoprolol Tartrate 25 Mg Tablet 25 Mg PO BID Phenobarbital 64.8 Mg Tablet 64.8 Mg PO Vitals/I & O Vital Sign - Last 24 Hours 06/07/20 06/07/20 06/07/20 06/07/20 18:06 19:08 19:38 20:38 Temp 98.2 98.2 Pulse 92 98 104 93 Resp 14 B/P (MAP) 98/65 (76) 114/66 (82) 107/64 (78) 109/69 (82) Pulse Ox 96 99 97 98 O2 Delivery Room Air Room Air Room Air Room Air 06/07/20 06/07/20 06/07/20 06/07/20 21:08 21:38 22:08 22:20 Pulse 89 104 81 101 B/P (MAP) 104/65 (78) 93/59 (70) 107/67 (80) 104/63 (77) Pulse Ox 97 97 99 95 O2 Delivery Room Air Room Air Room Air Room Air 06/07/20 06/07/20 06/07/20 06/08/20 22:24 22:25 22:30 03:45 Temp 97.8 97.5 97.8 97.5 Pulse 94 86 92 Resp 18 18 B/P (MAP) 110/69 (83) 106/66 (79) 113/70 (84) Pulse Ox 96 97 96 O2 Delivery Room Air Room Air Room Air Room Air 06/08/20 06/08/20 06/08/20 06/08/20 07:00 07:57 10:29 10:43 Temp 97.4 98.7 97.4 98.7 Pulse 101 101 101 Resp 18 16 B/P (MAP) 114/67 (83) 99/62 99/62 (74) Pulse Ox 98 96 O2 Delivery Room Air Room Air Room Air 06/08/20 06/08/20 12:19 13:31 Pulse 95 95 B/P (MAP) 111/72 111/72 Justifications for Admission Other Justification PUJA ZIEGLER MD Jun 08, 2020 14:36
[2020-06-08 15:01] VITALS: BP 93/60
[2020-06-08] MEDS: FUROSEMIDE 40 MG TABLET. PO SCH (17:04)
[2020-06-08 19:05] VITALS: BP 99/52
[2020-06-08] MEDS: SIMVASTATIN 10 MG TABLET PO SCH (20:43)
[2020-06-08] MEDS: PHENYTOIN SODIUM EXTENDED 100 MG CAPSULE PO SCH (20:43)
[2020-06-08 23:01] VITALS: BP 90/60
[2020-06-09] VITALS (7 sets, daily range): BP systolic 85–116; BP diastolic 53–70
[2020-06-09 07:31] LABS: CALCIUM 7.5 mg/dL (8.5-10.1); CREATININE 1.9 mg/dL (0.7-1.3); GFR 34.5; POTASSIUM 4.1 mmol/L (3.5-5.1)
[2020-06-09] MEDS: MIDODRINE 5 MG TABLET PO SCH ×3 (08:26→20:49)
[2020-06-09] MEDS: ASPIRIN ENTERIC COATED 81 MG TABLET.DR. PO SCH (08:26)
[2020-06-09] MEDS: ASCORBIC ACID 500 MG TABLET PO SCH (08:27)
[2020-06-09] MEDS: dilTIAZem HCL 30 MG TABLET PO SCH ×5 (08:27→23:48)
[2020-06-09] MEDS: PANTOPRAZOLE 40 MG TABLET.DR. PO SCH (08:28)
[2020-06-09] MEDS: MULTIVITAMIN with MINERAL TABLET. PO SCH (08:28)
[2020-06-09] MEDS: LACTOBACILLUS RHAMNOSUS GG 1 CAPSULE. PO SCH ×2 (08:28→20:48)
[2020-06-09] MEDS: ZINC SULFATE 220 MG CAPSULE. PO SCH (08:28)
[2020-06-09] MEDS: FUROSEMIDE 40 MG TABLET. PO SCH ×2 (09:00→16:24)
[2020-06-09] MEDS ORDERED: FUROSEMIDE 40 MG/4 ML VIAL. IVP ONE (09:30)
--- NOTE | 2020-06-09 09:36 | PDOC ---
IM PROGRESS NOTES- Subjective Subjective No complaints of pain or dyspnea. Patient is more appropriate today. yesterday he was very forgetful Objective Vitals/I&O Vital Signs Date Time Temp Pulse Resp B/P (MAP) Pulse Ox O2 Delivery O2 Flow Rate FiO2 06/09/20 08:27 98 103/60 06/09/20 08:00 Room Air 06/09/20 07:00 98.0 16 96 98.0 I & O 06/08/20 06/08/20 06/09/20 15:00 23:00 07:00 Intake Total 240 ml 410 ml Balance 240 ml 410 ml Physical Exam Physical Exam General appearance - alert, chronically ill appearing, and in no distress Mental Status - alert, oriented Head - normal Chest -decreased breath sounds at base Heart - S1 and S2 irregular Abdomen - soft, nontender, nondistended, no masses or organomegaly Neurological - alert , less anxious and less forgetful Musculoskeletal - no muscular tenderness noted Extremities -edema improving Skin - warm and dry Labs Laboratory Tests Test 06/09/20 06:50 Sodium Level 137 mmol/L (136-145) Potassium Level 4.1 mmol/L (3.5-5.1) Chloride Level 103 mmol/L (98-107) Carbon Dioxide Level 27 mmol/L (21-32) Anion Gap 7 (6-14) Blood Urea Nitrogen 40 mg/dL (8-26) H Creatinine 1.9 mg/dL (0.7-1.3) H Estimated GFR (Cockcroft-Gault) 34.5 Glucose Level 99 mg/dL (70-99) Calcium Level 7.5 mg/dL (8.5-10.1) L Magnesium Level 2.0 mg/dL (1.8-2.4) Laboratory Tests 06/09/20 06:50 Meds Current Medications Medications (Trade) Dose Ordered Sig/Omkar Route PRN Reason Start Time Stop Time Status Last Admin Dose Admin Aspirin (Ecotrin) 81 mg DAILY PO 06/08/20 10:00 06/09/20 08:26 Furosemide (Lasix) 40 mg BID94 PO 06/08/20 16:00 06/08/20 17:04 Metoprolol Tartrate (Lopressor) 25 mg BID PO 06/08/20 10:00 06/08/20 23:12 Midodrine (Proamatine) 5 mg TID PO 06/08/20 14:00 06/09/20 08:26 Pantoprazole Sodium (Protonix) 40 mg DAILYWBKFT PO 06/08/20 10:00 06/09/20 08:28 Phenytoin Sodium (Dilantin) 200 mg HS PO 06/08/20 21:00 06/08/20 20:43 Simvastatin (Zocor) 10 mg HS PO 06/08/20 21:00 06/08/20 20:43 Zinc Sulfate (Orazinc) 220 mg DAILY PO 06/08/20 10:00 06/09/20 08:28 Ascorbic Acid (Vitamin C) 250 mg DAILY PO 06/08/20 10:00 06/09/20 08:27 Diltiazem HCl (Cardizem) 60 mg Q6HRS PO 06/08/20 12:00 06/09/20 08:27 Lactobacillus Rhamnosus (Culturelle) 1 cap BID PO 06/08/20 10:00 06/09/20 08:28 Multivitamins (Thera M Plus) 1 tab DAILY PO 06/08/20 10:00 06/09/20 08:28 Furosemide (Lasix) 40 mg 1X ONCE IVP 06/08/20 11:00 06/08/20 11:03 DC 06/08/20 12:19 Assessment Assessment 1. Acute on chronic systolic congestive heart failure. 2. Atrial fibrillation. 3. Non-ST elevation myocardial infarction. Troponin level is actually improving. 4. Hypertension. 5. Physical deconditioning. 6. History of seizures. 7. Coronary artery disease, history of bypass surgery. 8. Chronic kidney disease, stage 3. PLAN: Consult Dr. Garay for Cardiology evaluation and management. I have asked the staff to give Lasix 40 mg IV x 1. Recheck labs in a.m. Prognosis of this patient is extremely poor. The patient does not want to go back to the long-term. He remains extremely weak and I am not sure if the family would be able to manage him at home. We will consult social studies teacher. Discussed with the staff. For details, please refer to the orders. Order PT, OT and consultation with Dr. Vera for rehab evaluation and management. Acute on chronic systolic congestive heart failure-slowly improving. Give 1 more dose of IV Lasix today. Start subcu Lovenox . Anxiety and cognitive deficits-improving slowly. Long-term as well as short-term prognosis of this patient is very poor. Plan Plan For more details regarding further plans, please refer to the orders. Justifications for Admission Other Justification TAMELA ULLOA MD Jun 09, 2020 09:36
[2020-06-09] MEDS: ENOXAPARIN 30 MG/0.3 ML SYRINGE. SQ SCH (10:12)
--- NOTE | 2020-06-09 10:21 | PDOC ---
PROGRESS NOTES Date of Service DATE: 06/09/20 TIME: 10:18 Subjective Subjective Patient seen and examined He looks and feels better today. Objective Objective Vital Signs Date Time Temp Pulse Resp B/P (MAP) Pulse Ox O2 Delivery O2 Flow Rate FiO2 06/09/20 08:27 98 103/60 06/09/20 08:00 Room Air 06/09/20 07:00 98.0 16 96 98.0 Intake and Output 06/09/20 07:00 Intake Total 650 ml Balance 650 ml Intake Oral 650 ml # Voids 7 Physical Exam Abdomen: Normal bowel sounds Heart: Regular rate General: mild distress Lungs: Clear to auscultation Assessment Assessment Problems Medical Problems: (1) Chest pain Status: Acute The patient was discharged 2 days ago and readmitted several hours later with complaints of chest and body pains. His chest pain has resolved. Troponins continue minimally elevated 0.493 and have been trending down since his original admission. Chronic AFIB with mildly increased rate. We will continue to monitor and adjust meds as needed. Acute on chronic diastolic CHF. Additional Lasix dose. Echocardiogram from 06/05/2020 showed an ejection fraction of 55 to 60% with diastolic dysfunction and moderate tricuspid regurgitation with a PA P of 49 mmHg Chronic kidney disease. Monitoring lab. NSTEMI: type 2, trop 1.3 peaked 4 days ago, EKG afib without acute ST-T wave changes CAD; past CABG, CP free now HTN: controlled HLP: lipids on goal Comment Review of Relevant I have reviewed the following items bri (where applicable) has been applied. Labs Laboratory Tests Test 06/07/20 19:22 06/07/20 19:30 06/07/20 20:15 06/08/20 00:40 White Blood Count 6.1 x10^3/uL (4.0-11.0) Red Blood Count 2.71 x10^6/uL (4.30-5.70) Hemoglobin 9.5 g/dL (13.0-17.5) Hematocrit 28.0 % (39.0-53.0) Mean Corpuscular Volume 103 fL (79-100) Mean Corpuscular Hemoglobin 35 pg (25-35) Mean Corpuscular Hemoglobin Concent 34 g/dL (31-37) Red Cell Distribution Width 18.0 % (11.5-14.5) Platelet Count 403 x10^3/uL (140-400) Neutrophils (%) (Auto) 81 % (31-73) Lymphocytes (%) (Auto) 8 % (24-48) Monocytes (%) (Auto) 8 % (0-9) Eosinophils (%) (Auto) 3 % (0-3) Basophils (%) (Auto) 0 % (0-3) Neutrophils # (Auto) 4.9 x10^3/uL (1.8-7.7) Lymphocytes # (Auto) 0.5 x10^3/uL (1.0-4.8) Monocytes # (Auto) 0.5 x10^3/uL (0.0-1.1) Eosinophils # (Auto) 0.2 x10^3/uL (0.0-0.7) Basophils # (Auto) 0.0 x10^3/uL (0.0-0.2) Bedside Troponin I 0.32 ng/ml (<0.08) Prothrombin Time 14.4 SEC (11.7-14.0) Prothromb Time International Ratio 1.2 (0.8-1.1) Activated Partial Thromboplast Time 35 SEC (24-38) Sodium Level 136 mmol/L (136-145) Potassium Level 4.7 mmol/L (3.5-5.1) Chloride Level 102 mmol/L (98-107) Carbon Dioxide Level 27 mmol/L (21-32) Anion Gap 7 (6-14) Blood Urea Nitrogen 38 mg/dL (8-26) Creatinine 1.8 mg/dL (0.7-1.3) Estimated GFR (Cockcroft-Gault) 36.8 BUN/Creatinine Ratio 21 (6-20) Glucose Level 108 mg/dL (70-99) Calcium Level 7.2 mg/dL (8.5-10.1) Magnesium Level 2.1 mg/dL (1.8-2.4) Total Bilirubin 0.3 mg/dL (0.2-1.0) Aspartate Amino Transf (AST/SGOT) 21 U/L (15-37) Alanine Aminotransferase (ALT/SGPT) 30 U/L (16-63) Alkaline Phosphatase 158 U/L (46-116) Ammonia < 10 mcmol/L (11-34) Troponin I Quantitative 0.493 ng/mL (0.000-0.055) 0.492 ng/mL (0.000-0.055) TI-Fix-U-Type Natriuretic Peptide > 07012 pg/mL (0-449) Total Protein 6.1 g/dL (6.4-8.2) Albumin 2.5 g/dL (3.4-5.0) Albumin/Globulin Ratio 0.7 (1.0-1.7) Lipase 317 U/L (73-393) Test 06/09/20 06:50 Sodium Level 137 mmol/L (136-145) Potassium Level 4.1 mmol/L (3.5-5.1) Chloride Level 103 mmol/L (98-107) Carbon Dioxide Level 27 mmol/L (21-32) Anion Gap 7 (6-14) Blood Urea Nitrogen 40 mg/dL (8-26) Creatinine 1.9 mg/dL (0.7-1.3) Estimated GFR (Cockcroft-Gault) 34.5 Glucose Level 99 mg/dL (70-99) Calcium Level 7.5 mg/dL (8.5-10.1) Magnesium Level 2.0 mg/dL (1.8-2.4) Laboratory Tests Test 06/09/20 06:50 Sodium Level 137 mmol/L (136-145) Potassium Level 4.1 mmol/L (3.5-5.1) Chloride Level 103 mmol/L (98-107) Carbon Dioxide Level 27 mmol/L (21-32) Anion Gap 7 (6-14) Blood Urea Nitrogen 40 mg/dL (8-26) Creatinine 1.9 mg/dL (0.7-1.3) Estimated GFR (Cockcroft-Gault) 34.5 Glucose Level 99 mg/dL (70-99) Calcium Level 7.5 mg/dL (8.5-10.1) Magnesium Level 2.0 mg/dL (1.8-2.4) Medications Current Medications Aspirin (Trupti Aspirin) 325 mg 1X ONCE PO Last administered on 06/07/20at 20:30; Start 06/07/20 at 20:00; Stop 06/07/20 at 20:01; Status DC Aspirin (Ecotrin) 81 mg DAILY PO Last administered on 06/09/20at 08:26; Start 06/08/20 at 10:00 Clindamycin HCl (Cleocin) 450 mg QID PO ; Start 06/08/20 at 13:00; Stop 06/08/20 at 15:11; Status DC Furosemide (Lasix) 40 mg BID94 PO Last administered on 06/08/20at 17:04; Start 06/08/20 at 16:00 Metoprolol Tartrate (Lopressor) 25 mg BID PO Last administered on 06/08/20 23:12; Start 06/08/20 at 10:00 Midodrine (Proamatine) 5 mg TID PO Last administered on 06/09/20 08:26; Start 06/08/20 at 14:00 Pantoprazole Sodium (Protonix) 40 mg DAILYWBKFT PO Last administered on 06/09/20 08:28; Start 06/08/20 at 10:00 Phenytoin Sodium (Dilantin) 200 mg HS PO Last administered on 06/08/20at 20:43; Start 06/08/20 at 21:00 Simvastatin (Zocor) 10 mg HS PO Last administered on 06/08/20 20:43; Start 06/08/20 at 21:00 Zinc Sulfate (Orazinc) 220 mg DAILY PO Last administered on 06/09/20 08:28; Start 06/08/20 at 10:00 Ascorbic Acid (Vitamin C) 250 mg DAILY PO Last administered on 06/09/20 08:27; Start 06/08/20 at 10:00 Diltiazem HCl (Cardizem) 60 mg Q6HRS PO Last administered on 06/09/20 08:27; Start 06/08/20 at 12:00 Lactobacillus Rhamnosus (Culturelle) 1 cap BID PO Last administered on 06/09/20 08:28; Start 06/08/20 at 10:00 Multivitamins (Thera M Plus) 1 tab DAILY PO Last administered on 06/09/20 08:28; Start 06/08/20 at 10:00 Furosemide (Lasix) 40 mg 1X ONCE IVP Last administered on 06/08/20at 12:19; Start 06/08/20 at 11:00; Stop 06/08/20 at 11:03; Status DC Enoxaparin Sodium (Lovenox 30mg Syringe) 30 mg Q24H SQ Last administered on 06/09/20at 10:12; Start 06/09/20 at 09:30 Furosemide (Lasix) 40 mg 1X ONCE IVP Last administered on 06/09/20at 10:06; Start 06/09/20 at 09:30; Stop 06/09/20 at 09:37; Status DC Active Scripts Active Furosemide 40 Mg Tablet 40 Mg PO BID94 30 Days Clindamycin Hcl 150 Mg Capsule 450 Mg PO QID Dilantin (Phenytoin Sodium Extended) 100 Mg Capsule 200 Mg PO HS Reported Multi-Vitamin Daily (Multivitamin) 1 Each Tablet 1 Tab PO DAILY 30 Days Zinc-220 (Zinc Sulfate) 220 Mg Capsule 220 Mg PO DAILY Midodrine Hcl 5 Mg Tablet 5 Mg PO TID Probiotic (Lactobacillus Acidophilus) 1 Each Capsule 1 Cap PO BID 10 Days Cardizem Tablet (Diltiazem Hcl) 60 Mg Tablet 60 Mg PO EVERY 6 HOURS Vitamin C (Ascorbic Acid) 100 Mg Tablet 250 Mg PO DAILY Aspir 81 (Aspirin) 81 Mg Tablet. 81 Mg PO Simvastatin 10 Mg Tablet 10 Mg PO Pantoprazole Sodium (Pantoprazole Sodium) 40 Mg Tablet. 40 Mg PO Metoprolol Tartrate 25 Mg Tablet 25 Mg PO BID Phenobarbital 64.8 Mg Tablet 64.8 Mg PO Vitals/I & O Vital Sign - Last 24 Hours 06/08/20 06/08/20 06/08/20 06/08/20 10:29 10:43 12:19 13:31 Temp 98.7 98.7 Pulse 101 101 95 95 Resp 16 B/P (MAP) 99/62 99/62 (74) 111/72 111/72 Pulse Ox 96 O2 Delivery Room Air 06/08/20 06/08/20 06/08/20 06/08/20 15:01 17:05 19:05 19:32 Temp 98.6 98.2 98.6 98.2 Pulse 94 92 78 Resp 16 21 B/P (MAP) 93/60 (71) 104/67 99/52 (68) Pulse Ox 97 95 O2 Delivery Room Air Room Air Room Air 06/08/20 06/08/20 06/08/20 06/09/20 20:47 23:01 23:12 00:00 Temp 98.1 98.1 Pulse 94 94 89 Resp 20 B/P (MAP) 93/57 90/60 (70) 108/66 85/53 Pulse Ox 96 O2 Delivery Room Air 06/09/20 06/09/20 06/09/20 06/09/20 02:44 05:51 07:00 08:00 Temp 97.7 98.0 97.7 98.0 Pulse 89 98 Resp 20 16 B/P (MAP) 85/53 (64) 91/58 (69) 116/70 (85) Pulse Ox 95 96 O2 Delivery Room Air Room Air Room Air 06/09/20 06/09/20 08:26 08:27 Pulse 98 98 B/P (MAP) 103/60 103/60 Intake and Output 06/08/20 06/08/20 06/09/20 15:00 23:00 07:00 Intake Total 240 ml 410 ml Balance 240 ml 410 ml Justifications for Admission Other Justification PUJA ZIEGLER MD Jun 09, 2020 10:21
[2020-06-09] MEDS: METOPROLOL TART IMMED RELEASE 25 MG TABLET. PO SCH ×2 (12:15→20:49)
[2020-06-09] MEDS: SIMVASTATIN 10 MG TABLET PO SCH (20:48)
[2020-06-09] MEDS: PHENYTOIN SODIUM EXTENDED 100 MG CAPSULE PO SCH (20:49)
[2020-06-10] VITALS (7 sets, daily range): BP systolic 94–119; BP diastolic 49–74
[2020-06-10 04:14] LABS: BASO # 0.1 x10^3/uL (0.0-0.2); BASO % 1 % (0-3); EOS # 0.1 x10^3/uL (0.0-0.7); EOS % 1 % (0-3); HEMATOCRIT 23.5 % (39.0-53.0); LYMPH # 0.7 x10^3/uL (1.0-4.8); LYMPH % 12 % (24-48); MEAN CORPUSCULAR HEMOGLOBIN 35 pg (25-35); MEAN CORPUSCULAR HGB CONC 34 g/dL (31-37); MEAN CORPUSCULAR VOLUME 104 fL (79-100); MONO # 0.8 x10^3/uL (0.0-1.1); MONO % 15 % (0-9); NEUT % 71 % (31-73); PLATELET COUNT 305 x10^3/uL (140-400); RED BLOOD COUNT 2.25 x10^6/uL (4.30-5.70); RED CELL DISTRIBUTION WIDTH 16.7 % (11.5-14.5); WHITE BLOOD COUNT 5.6 x10^3/uL (4.0-11.0)
[2020-06-10 04:30] LABS: ALBUMIN 2.1 g/dL (3.4-5.0); ALBUMIN/GLOBULIN RATIO 0.6 (1.0-1.7); CALCIUM 7.3 mg/dL (8.5-10.1); GFR 32.6; POTASSIUM 4.3 mmol/L (3.5-5.1); TOTAL BILIRUBIN 0.3 mg/dL (0.2-1.0); TOTAL PROTEIN 5.4 g/dL (6.4-8.2)
[2020-06-10] MEDS: dilTIAZem HCL 30 MG TABLET PO SCH ×3 (06:08→18:22)
[2020-06-10] MEDS: MIDODRINE 5 MG TABLET PO SCH ×3 (07:49→20:40)
[2020-06-10] MEDS: ASPIRIN ENTERIC COATED 81 MG TABLET.DR. PO SCH (07:49)
[2020-06-10] MEDS: MULTIVITAMIN with MINERAL TABLET. PO SCH (07:49)
[2020-06-10] MEDS: PANTOPRAZOLE 40 MG TABLET.DR. PO SCH (07:49)
[2020-06-10] MEDS: LACTOBACILLUS RHAMNOSUS GG 1 CAPSULE. PO SCH ×2 (07:49→20:40)
[2020-06-10] MEDS: ZINC SULFATE 220 MG CAPSULE. PO SCH (07:50)
[2020-06-10] MEDS: METOPROLOL TART IMMED RELEASE 25 MG TABLET. PO SCH ×2 (07:50→20:40)
[2020-06-10] MEDS: ASCORBIC ACID 500 MG TABLET PO SCH (07:50)
[2020-06-10] MEDS: FUROSEMIDE 40 MG TABLET. PO SCH ×2 (07:50→17:06)
[2020-06-10] MEDS: ENOXAPARIN 30 MG/0.3 ML SYRINGE. SQ SCH (07:52)
--- NOTE | 2020-06-10 08:45 | PDOC ---
PROGRESS NOTES Date of Service: DATE: 06/10/20 TIME: 08:41 Subjective Subjective Pt want to go home ,he does not want to go back to health care facility Objective Objective Vital Signs Date Time Temp Pulse Resp B/P (MAP) Pulse Ox O2 Delivery O2 Flow Rate FiO2 06/10/20 07:50 97 108/66 06/10/20 03:23 98.1 18 93 Room Air 98.1 Intake and Output 06/10/20 07:00 Intake Total 1640 ml Balance 1640 ml Intake Oral 1640 ml # Voids 6 Physical Exam Abdomen: Normal bowel sounds Heart: Regular rate General: Alert, mild distress Lungs: Clear to auscultation MUSCULOSKELETAL: No deformity, Other Neuro: Normal speech Psych/Mental Status: Mood NL Skin: No breakdown COMMENT leg swelling1+ Diagnosis Problem List Problems Medical Problems: (1) Chest pain Status: Acute Assessment Assessment 1. Acute on chronic systolic congestive heart failure. 2. Atrial fibrillation ch ronic persistent. 3. Non-ST elevation myocardial infarction. Troponin level is actually improving. 4. Hypertension. 5. Physical deconditioning. 6. History of seizures. 7. Coronary artery disease, history of bypass surgery. 8. Chronic kidney disease, stage 3. PLAN: CT chest today IV lasix helping edema crf stage 3-4. poor functional status. poor prognosis spoke with pts son [facility] with hosp[facility] Pt and Pts son agreeable to that. possible d/c home tomorrow with hospice. Consult Dr. Garay for Cardiology evaluation and management. I have asked the staff to give Lasix 40 mg IV x 1. Recheck labs in a.m. Prognosis of this patient is extremely poor. The patient does not want to go back to the care home. He remains extremely weak and I am not sure if the family would be able to manage him at home. We will consult director of social media marketing. Discussed with the staff. For details, please refer to the orders. Order PT, OT and consultation with Dr. Vera for rehab evaluation and management. Acute on chronic systolic congestive heart failure-slowly improving. Give 1 more dose of IV Lasix today. Start subcu Lovenox . Anxiety and cognitive deficits-improving slowly. Long-term as well as short-term prognosis of this patient is very poor. Plan Plan of Care Problems Medical Problems: (1) Chest pain Status: Acute Comment Review of Relevant I have reviewed the following items bri (where applicable) has been applied. Labs Laboratory Tests Test 06/10/20 03:30 White Blood Count 5.6 x10^3/uL (4.0-11.0) Red Blood Count 2.25 x10^6/uL (4.30-5.70) Hemoglobin 8.0 g/dL (13.0-17.5) Hematocrit 23.5 % (39.0-53.0) Mean Corpuscular Volume 104 fL (79-100) Mean Corpuscular Hemoglobin 35 pg (25-35) Mean Corpuscular Hemoglobin Concent 34 g/dL (31-37) Red Cell Distribution Width 16.7 % (11.5-14.5) Platelet Count 305 x10^3/uL (140-400) Neutrophils (%) (Auto) 71 % (31-73) Lymphocytes (%) (Auto) 12 % (24-48) Monocytes (%) (Auto) 15 % (0-9) Eosinophils (%) (Auto) 1 % (0-3) Basophils (%) (Auto) 1 % (0-3) Neutrophils # (Auto) 4.0 x10^3/uL (1.8-7.7) Lymphocytes # (Auto) 0.7 x10^3/uL (1.0-4.8) Monocytes # (Auto) 0.8 x10^3/uL (0.0-1.1) Eosinophils # (Auto) 0.1 x10^3/uL (0.0-0.7) Basophils # (Auto) 0.1 x10^3/uL (0.0-0.2) Sodium Level 136 mmol/L (136-145) Potassium Level 4.3 mmol/L (3.5-5.1) Chloride Level 102 mmol/L (98-107) Carbon Dioxide Level 26 mmol/L (21-32) Anion Gap 8 (6-14) Blood Urea Nitrogen 41 mg/dL (8-26) Creatinine 2.0 mg/dL (0.7-1.3) Estimated GFR (Cockcroft-Gault) 32.6 BUN/Creatinine Ratio 21 (6-20) Glucose Level 106 mg/dL (70-99) Calcium Level 7.3 mg/dL (8.5-10.1) Total Bilirubin 0.3 mg/dL (0.2-1.0) Aspartate Amino Transf (AST/SGOT) 48 U/L (15-37) Alanine Aminotransferase (ALT/SGPT) 42 U/L (16-63) Alkaline Phosphatase 150 U/L (46-116) Total Protein 5.4 g/dL (6.4-8.2) Albumin 2.1 g/dL (3.4-5.0) Albumin/Globulin Ratio 0.6 (1.0-1.7) Medications Current Medications Enoxaparin Sodium (Lovenox 30mg Syringe) 30 mg Q24H SQ Last administered on 06/10/20at 07:52; Start 06/09/20 at 09:30 Furosemide (Lasix) 40 mg 1X ONCE IVP Last administered on 06/09/20at 10:06; Start 06/09/20 at 09:30; Stop 06/09/20 at 09:37; Status DC Vitals/I & O Vital Sign - Last 24 Hours 06/09/20 06/09/20 06/09/20 06/09/20 11:00 12:15 13:55 14:42 Temp 98.6 98.0 98.6 98.0 Pulse 98 98 98 98 Resp 20 18 B/P (MAP) 96/56 (69) 96/56 96/56 111/68 (82) Pulse Ox 96 94 O2 Delivery Room Air Room Air 06/09/20 06/09/20 06/09/20 06/09/20 15:05 18:24 19:33 20:00 Temp 99.1 99.1 Pulse 99 99 100 Resp 18 B/P (MAP) 126/71 103/55 104/64 (77) Pulse Ox 96 O2 Delivery Room Air Room Air 06/09/20 06/09/20 06/09/20 06/09/20 20:49 20:49 23:03 23:48 Temp 98.3 98.3 Pulse 100 100 82 82 Resp 18 B/P (MAP) 104/64 104/64 109/62 (78) 109/62 Pulse Ox 97 O2 Delivery Room Air 06/10/20 06/10/20 06/10/20 06/10/20 03:23 06:06 06:08 07:49 Temp 98.1 98.1 Pulse 63 97 97 97 Resp 18 B/P (MAP) 94/49 (64) 108/66 (80) 108/66 108/66 Pulse Ox 93 O2 Delivery Room Air 06/10/20 07:50 Pulse 97 B/P (MAP) 108/66 Intake and Output 06/09/20 06/09/20 06/10/20 15:00 23:00 07:00 Intake Total 360 ml 880 ml 400 ml Balance 360 ml 880 ml 400 ml Justifications for Admission Other Justification TEQUILA SIMPSON MD Jun 10, 2020 08:45
[2020-06-10] MEDS ORDERED: BUPIVACAINE MPF 0.25% 10 ML VIAL. IJ ONE (09:45)
[2020-06-10] MEDS ORDERED: methylPREDNISolone ACETATE 40 MG/ML VIAL. IM ONE (09:45)
--- NOTE | 2020-06-10 10:08 | PDOC2 ---
CONSULT Date of Consult Date of Consult DATE: 06/10/20 TIME: 09:47 Reason for Consult Reason for Consult: rehab evaluation. Referring Physician Referring Physician: . Identification/Chief Complaint Chief Complaint right knee pain. History of Present Illness Reason for Visit: This is a 79 year old right handed male with generalized muscle weakness and was discharged to go to SNF but came back as he does not like to stay there and plans for him to go home with hospice tomorrow. Past Medical History Cardiovascular: AFIB, CAD, HTN, Hyperlipidemia Pulmonary: Pneumonia CENTRAL NERVOUS SYSTEM: CVA, Seizure GI: GERD, Other Heme/Onc: Anemia NOS Hepatobiliary: No pertinent hx Psych: Depression Musculoskeletal: Osteoarthritis Rheumatologic: No pertinent hx Infectious disease: No pertinent hx Renal/: Chronic renal insuff Endocrine: Diabetes Past Surgical History Past Surgical History: CABG, Other Family History Family History: Coronary Artery Disease Social History ALCOHOL: none Drugs: None Lives: with Family Domestic Violence: Neg Current Problem List Problem List Problems Medical Problems: (1) Chest pain Status: Acute Current Medications Current Medications Current Medications Aspirin (Trupti Aspirin) 325 mg 1X ONCE PO Last administered on 06/07/20at 20:30; Start 06/07/20 at 20:00; Stop 06/07/20 at 20:01; Status DC Aspirin (Ecotrin) 81 mg DAILY PO Last administered on 06/10/20at 07:49; Start 06/08/20 at 10:00 Clindamycin HCl (Cleocin) 450 mg QID PO ; Start 06/08/20 at 13:00; Stop 06/08/20 at 15:11; Status DC Furosemide (Lasix) 40 mg BID94 PO Last administered on 06/10/20at 07:50; Start 06/08/20 at 16:00 Metoprolol Tartrate (Lopressor) 25 mg BID PO Last administered on 06/10/20at 07:50; Start 06/08/20 at 10:00 Midodrine (Proamatine) 5 mg TID PO Last administered on 06/10/20at 07:49; Start 06/08/20 at 14:00 Pantoprazole Sodium (Protonix) 40 mg DAILYWBKFT PO Last administered on 06/10/20at 07:49; Start 06/08/20 at 10:00 Phenytoin Sodium (Dilantin) 200 mg HS PO Last administered on 06/09/20at 20:49; Start 06/08/20 at 21:00 Simvastatin (Zocor) 10 mg HS PO Last administered on 06/09/20at 20:48; Start 06/08/20 at 21:00 Zinc Sulfate (Orazinc) 220 mg DAILY PO Last administered on 06/10/20at 07:50; Start 06/08/20 at 10:00 Ascorbic Acid (Vitamin C) 250 mg DAILY PO Last administered on 06/10/20at 07:50; Start 06/08/20 at 10:00 Diltiazem HCl (Cardizem) 60 mg Q6HRS PO Last administered on 06/10/20at 06:08; Start 06/08/20 at 12:00 Lactobacillus Rhamnosus (Culturelle) 1 cap BID PO Last administered on 06/10/20at 07:49; Start 06/08/20 at 10:00 Multivitamins (Thera M Plus) 1 tab DAILY PO Last administered on 06/10/20at 07:49; Start 06/08/20 at 10:00 Furosemide (Lasix) 40 mg 1X ONCE IVP Last administered on 06/08/20at 12:19; Start 06/08/20 at 11:00; Stop 06/08/20 at 11:03; Status DC Enoxaparin Sodium (Lovenox 30mg Syringe) 30 mg Q24H SQ Last administered on 06/10/20at 07:52; Start 06/09/20 at 09:30 Furosemide (Lasix) 40 mg 1X ONCE IVP Last administered on 06/09/20at 10:06; Start 06/09/20 at 09:30; Stop 06/09/20 at 09:37; Status DC Methylprednisolone Acetate (DEPO-Medrol 40MG VIAL) 40 mg 1X ONCE IM ; Start 06/10/20 at 09:45; Stop 06/10/20 at 09:46; Status DC Bupivacaine HCl (Sensorcaine-Mpf 0.25%) 10 ml 1X ONCE IJ ; Start 06/10/20 at 09:45; Stop 06/10/20 at 09:46; Status DC Active Scripts Active Furosemide 40 Mg Tablet 40 Mg PO BID94 30 Days Clindamycin Hcl 150 Mg Capsule 450 Mg PO QID Dilantin (Phenytoin Sodium Extended) 100 Mg Capsule 200 Mg PO HS Reported Multi-Vitamin Daily (Multivitamin) 1 Each Tablet 1 Tab PO DAILY 30 Days Zinc-220 (Zinc Sulfate) 220 Mg Capsule 220 Mg PO DAILY Midodrine Hcl 5 Mg Tablet 5 Mg PO TID Probiotic (Lactobacillus Acidophilus) 1 Each Capsule 1 Cap PO BID 10 Days Cardizem Tablet (Diltiazem Hcl) 60 Mg Tablet 60 Mg PO EVERY 6 HOURS Vitamin C (Ascorbic Acid) 100 Mg Tablet 250 Mg PO DAILY Aspir 81 (Aspirin) 81 Mg Tablet.dr 81 Mg PO Simvastatin 10 Mg Tablet 10 Mg PO Pantoprazole Sodium (Pantoprazole Sodium) 40 Mg Tablet.dr 40 Mg PO Metoprolol Tartrate 25 Mg Tablet 25 Mg PO BID Phenobarbital 64.8 Mg Tablet 64.8 Mg PO Allergies Allergies: Coded Allergies: Sulfa (Sulfonamide Antibiotics) (Verified Adverse Reaction, Intermediate, HALLUCINATIONS, 05/14/15) morphine (Verified Adverse Reaction, Intermediate, HALLUCINATIONS, 05/14/15) warfarin (Verified Adverse Reaction, Intermediate, GI bleeding, 12/21/16) Physical Exam General: Alert, Cooperative, No acute distress HEENT: PERRLA Extremities: Other (He had edema of his feet and left leg.) Skin: Other (dry scaly skin of his extremities.) Neuro: Other (He had generalized muscle weakness and absent knee and ankle jerks and hand intrinsic muscle atrophy but negative Tinel's sign over median nerve at wrist and ulnar nerve at wrist and elbow.) Psych/Mental Status: Mental status NL, Mood NL MUSCULOSKELETAL: Other (He had crepitus on ROM of his knee joint with minimal joint effusion and he had stiffness of his hip joints and he requires assistance with rolling in bed.) Vitals VITALS Vital Signs Date Time Temp Pulse Resp B/P (MAP) Pulse Ox O2 Delivery O2 Flow Rate FiO2 06/10/20 08:00 Room Air 06/10/20 07:50 97 108/66 06/10/20 03:23 98.1 18 93 98.1 Labs Labs Laboratory Tests Test 06/09/20 06:50 06/10/20 03:30 Sodium Level 137 mmol/L (136-145) 136 mmol/L (136-145) Potassium Level 4.1 mmol/L (3.5-5.1) 4.3 mmol/L (3.5-5.1) Chloride Level 103 mmol/L (98-107) 102 mmol/L (98-107) Carbon Dioxide Level 27 mmol/L (21-32) 26 mmol/L (21-32) Anion Gap 7 (6-14) 8 (6-14) Blood Urea Nitrogen 40 mg/dL (8-26) 41 mg/dL (8-26) Creatinine 1.9 mg/dL (0.7-1.3) 2.0 mg/dL (0.7-1.3) Estimated GFR (Cockcroft-Gault) 34.5 32.6 Glucose Level 99 mg/dL (70-99) 106 mg/dL (70-99) Calcium Level 7.5 mg/dL (8.5-10.1) 7.3 mg/dL (8.5-10.1) Magnesium Level 2.0 mg/dL (1.8-2.4) White Blood Count 5.6 x10^3/uL (4.0-11.0) Red Blood Count 2.25 x10^6/uL (4.30-5.70) Hemoglobin 8.0 g/dL (13.0-17.5) Hematocrit 23.5 % (39.0-53.0) Mean Corpuscular Volume 104 fL (79-100) Mean Corpuscular Hemoglobin 35 pg (25-35) Mean Corpuscular Hemoglobin Concent 34 g/dL (31-37) Red Cell Distribution Width 16.7 % (11.5-14.5) Platelet Count 305 x10^3/uL (140-400) Neutrophils (%) (Auto) 71 % (31-73) Lymphocytes (%) (Auto) 12 % (24-48) Monocytes (%) (Auto) 15 % (0-9) Eosinophils (%) (Auto) 1 % (0-3) Basophils (%) (Auto) 1 % (0-3) Neutrophils # (Auto) 4.0 x10^3/uL (1.8-7.7) Lymphocytes # (Auto) 0.7 x10^3/uL (1.0-4.8) Monocytes # (Auto) 0.8 x10^3/uL (0.0-1.1) Eosinophils # (Auto) 0.1 x10^3/uL (0.0-0.7) Basophils # (Auto) 0.1 x10^3/uL (0.0-0.2) BUN/Creatinine Ratio 21 (6-20) Total Bilirubin 0.3 mg/dL (0.2-1.0) Aspartate Amino Transf (AST/SGOT) 48 U/L (15-37) Alanine Aminotransferase (ALT/SGPT) 42 U/L (16-63) Alkaline Phosphatase 150 U/L (46-116) Total Protein 5.4 g/dL (6.4-8.2) Albumin 2.1 g/dL (3.4-5.0) Albumin/Globulin Ratio 0.6 (1.0-1.7) Laboratory Tests Test 06/10/20 03:30 White Blood Count 5.6 x10^3/uL (4.0-11.0) Red Blood Count 2.25 x10^6/uL (4.30-5.70) Hemoglobin 8.0 g/dL (13.0-17.5) Hematocrit 23.5 % (39.0-53.0) Mean Corpuscular Volume 104 fL (79-100) Mean Corpuscular Hemoglobin 35 pg (25-35) Mean Corpuscular Hemoglobin Concent 34 g/dL (31-37) Red Cell Distribution Width 16.7 % (11.5-14.5) Platelet Count 305 x10^3/uL (140-400) Neutrophils (%) (Auto) 71 % (31-73) Lymphocytes (%) (Auto) 12 % (24-48) Monocytes (%) (Auto) 15 % (0-9) Eosinophils (%) (Auto) 1 % (0-3) Basophils (%) (Auto) 1 % (0-3) Neutrophils # (Auto) 4.0 x10^3/uL (1.8-7.7) Lymphocytes # (Auto) 0.7 x10^3/uL (1.0-4.8) Monocytes # (Auto) 0.8 x10^3/uL (0.0-1.1) Eosinophils # (Auto) 0.1 x10^3/uL (0.0-0.7) Basophils # (Auto) 0.1 x10^3/uL (0.0-0.2) Sodium Level 136 mmol/L (136-145) Potassium Level 4.3 mmol/L (3.5-5.1) Chloride Level 102 mmol/L (98-107) Carbon Dioxide Level 26 mmol/L (21-32) Anion Gap 8 (6-14) Blood Urea Nitrogen 41 mg/dL (8-26) Creatinine 2.0 mg/dL (0.7-1.3) Estimated GFR (Cockcroft-Gault) 32.6 BUN/Creatinine Ratio 21 (6-20) Glucose Level 106 mg/dL (70-99) Calcium Level 7.3 mg/dL (8.5-10.1) Total Bilirubin 0.3 mg/dL (0.2-1.0) Aspartate Amino Transf (AST/SGOT) 48 U/L (15-37) Alanine Aminotransferase (ALT/SGPT) 42 U/L (16-63) Alkaline Phosphatase 150 U/L (46-116) Total Protein 5.4 g/dL (6.4-8.2) Albumin 2.1 g/dL (3.4-5.0) Albumin/Globulin Ratio 0.6 (1.0-1.7) Assessment/Plan Assessment/Plan Mobility and self care limitations in a patient with 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 At his request,I have injected painful right knee joint under aseptic skin technique,with alcohol skin prep,using 2 ml of 0.25% marcaine solution mixed with depo medrol 40 mg/ 1 ml solution and he tolerated the procedure satisfactorily without any side effects. PERCY JUDD MD Jun 10, 2020 10:08
--- NOTE | 2020-06-10 11:46 | PDOC ---
SHARON ALFARO [facility] 06/10/20 1146: CARDIO Progress Notes Date and Time Date of Service 06/10/20 Time of Evaluation 1140 Subjective Subjective: No Chest Pain, No Palpitations, Other (SOA improved ) Vitals Vitals Vital Signs Date Time Temp Pulse Resp B/P (MAP) Pulse Ox O2 Delivery O2 Flow Rate FiO2 06/10/20 10:38 98.3 63 20 96/60 (72) 96 Room Air 98.3 Weight Weight [ ] Input and Output Intake and Output Intake and Output 06/10/20 07:00 Intake Total 1640 ml Balance 1640 ml Intake Oral 1640 ml # Voids 6 Laboratory Labs Laboratory Tests Test 06/10/20 03:30 White Blood Count 5.6 x10^3/uL (4.0-11.0) Red Blood Count 2.25 x10^6/uL (4.30-5.70) Hemoglobin 8.0 g/dL (13.0-17.5) Hematocrit 23.5 % (39.0-53.0) Mean Corpuscular Volume 104 fL (79-100) Mean Corpuscular Hemoglobin 35 pg (25-35) Mean Corpuscular Hemoglobin Concent 34 g/dL (31-37) Red Cell Distribution Width 16.7 % (11.5-14.5) Platelet Count 305 x10^3/uL (140-400) Neutrophils (%) (Auto) 71 % (31-73) Lymphocytes (%) (Auto) 12 % (24-48) Monocytes (%) (Auto) 15 % (0-9) Eosinophils (%) (Auto) 1 % (0-3) Basophils (%) (Auto) 1 % (0-3) Neutrophils # (Auto) 4.0 x10^3/uL (1.8-7.7) Lymphocytes # (Auto) 0.7 x10^3/uL (1.0-4.8) Monocytes # (Auto) 0.8 x10^3/uL (0.0-1.1) Eosinophils # (Auto) 0.1 x10^3/uL (0.0-0.7) Basophils # (Auto) 0.1 x10^3/uL (0.0-0.2) Sodium Level 136 mmol/L (136-145) Potassium Level 4.3 mmol/L (3.5-5.1) Chloride Level 102 mmol/L (98-107) Carbon Dioxide Level 26 mmol/L (21-32) Anion Gap 8 (6-14) Blood Urea Nitrogen 41 mg/dL (8-26) Creatinine 2.0 mg/dL (0.7-1.3) Estimated GFR (Cockcroft-Gault) 32.6 BUN/Creatinine Ratio 21 (6-20) Glucose Level 106 mg/dL (70-99) Calcium Level 7.3 mg/dL (8.5-10.1) Total Bilirubin 0.3 mg/dL (0.2-1.0) Aspartate Amino Transf (AST/SGOT) 48 U/L (15-37) Alanine Aminotransferase (ALT/SGPT) 42 U/L (16-63) Alkaline Phosphatase 150 U/L (46-116) Total Protein 5.4 g/dL (6.4-8.2) Albumin 2.1 g/dL (3.4-5.0) Albumin/Globulin Ratio 0.6 (1.0-1.7) Physical Exam HEENT: Neck Supple W Full Motion Chest: Symmetric LUNGS: Other (diminished bases) Heart: irregularly irregular (AFIB, rate controlled ) Abdomen: Soft N/T Extremities: No Edema Neurology: alert, follow commands Assessment Assessment 1. Chest pain, atypical. resolved 2. NSTEMI: type 2, trop 1.3 peaked 6 days ago; 0.493. trending down since his original admission 3. CAD; past CABG 4. Chronic AFIB; rate controlled 5. Acute on chronic diastolic CHF. Echocardiogram last week with LVEF 55 to 60%. Better compensated following diuresis 6. HTN: controlled 7. HLP: lipids on goal 8. CKD Recommendations Lasix therapy Secondary prevention Continue metoprolol for rate control Discussed further ischemic workup on an outpatient basis. Patient requesting to be discharge home on Hospices services. Supportive care Justicifation of Admission Dx: Justifications for Admission: Justification of Admission Dx: Yes (CHEST PAIN) PUJA ZIEGLER MD 06/10/20 9098: CARDIO Progress Notes Assessment Assessment Patient seen and evaluated. NSTEMI: type 2, trop 1.3 peaked 6 days ago; 0.493. trending down since his original admission. No chest pain CAD; past CABG Chronic AFIB; rate controlled Acute on chronic diastolic CHF. Echocardiogram last week with LVEF 55 to 60%. Better compensated following diuresis HTN: controlled HLP: lipids on goal CKD SHARON ALFARO APRN Jun 10, 2020 11:46 PUJA ZIEGLER MD Jun 10, 2020 16:38
--- NOTE | 2020-06-10 13:13 | NUR ---
SS following for discharge planning. SS reviewed pt chart and discussed with pt RN. Pt is fpc and rehabilitation resident from [facility], ; fax [phone]. Pt is currently on room air and full code. Pt and family reporting that they do not want pt to return to [facility]. SS spoke with pt's son, Vicente, via phone and SS was notified that pt's spouse is at home with [facility], ; fax [phone]. SS was notified that pt and family would like pt to return to home with [facility]. SS phoned and faxed referral. SS will continue to follow for discharge planning.
--- NOTE | 2020-06-10 13:45 | NUR ---
Adminiseted steroid injection without scanning d/t physician doing injection and not returning vials to scan.
--- NOTE | 2020-06-10 14:15 | RAD ---
EXAM: CT Chest without IV contrast INDICATION: Reason: abnormal cxr ,lung infiltrates, pleural effusion / Spl. Instructions: / History: TECHNIQUE: Multi-detector row CT images were acquired from the thoracic inlet through the upper abdomen without the use of IV contrast. Sagittal and coronal images were acquired from the transaxial data. All CT scans performed at this facility utilize dose optimization techniques as appropriate to the exam, including the following: Automated exposure control and adjustment of the mA and/or KV according to patient size (this includes techniques or standardized protocols for targeted exams where dose is indication/reason for exam). COMPARISON: Chest x-ray of 06/07/2020 FINDINGS: The absence of IV contrast limits evaluation of soft tissue pathology. CARDIOVASCULAR: Moderately enlarged heart with enlargement of both atria and the right ventricle. Post CABG surgical changes. Normal caliber thoracic aorta. MEDIASTINUM & ALBA: No adenopathy or masses. Partly fluid-filled thoracic esophagus. LUNGS: Bibasilar atelectasis, near lobar atelectasis in the right lower lobe PLEURAL SPACE: Moderate right and small left pleural effusion. No pneumothorax. OSSEOUS & SOFT TISSUE: Unremarkable ABDOMEN: The visualized portions of the upper abdomen are unremarkable. IMPRESSION: Bilateral pleural effusions with associated bibasilar atelectasis and more confluent consolidation in the right lower lobe, present in the setting of cardiomegaly and previous CABG. Correlate for evidence of pneumonia and consider follow-up to resolution. Electronically signed by: Kaylene Hull MD (06/10/2020 2:13 PM) [id number]
--- NOTE | 2020-06-10 15:50 | NUR ---
SS following up with discharge planning. [facility] contacted SS and reported that they have reached out to family and are coming to have pt sign consents. They reported that DME will be delivered to pt's home in the morning and pt can discharge tomorrow around 1100. SS will continue to follow for discharge planning.
--- NOTE | 2020-06-10 17:00 | NUR ---
Wound Care Wound Type/Assessment: Pt known to wound team from recent admission. Wounds pictured and measured on admission. Photo of wound labeled as a "sacral" blister clearly shows a man's scrotum with some localized redness. No wounds present on inspection of sacrum. 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 No blisters intact or otherwise noted on either buttock. No other concerning areas noted on head to toe inspection. Pt incontinent of urine, brief changed. Treatment Recommendations/Plan: Apply barrier cream to scrotum, buttocks, and pati area BID and PRN. Turn Q2H and position with pillows and wedge. Education provided: Pt AOx1, unable to receive education. Educated staff to turn Q2H Offloading surface/device: Recommend P500 bed if pt plans to stay inpatient for a time. At this time, plan is for pt to discharge to hospice on 06/11/20 Recommended Referrals/Tests: NA, palliative wound care only Discharge Recommendations for dressings: Maintain SWITCH BOX INSTALLER, barrier cream BID/PRN, Turn Q2H. Wound care managed by hospice
[2020-06-10] MEDS: PHENYTOIN SODIUM EXTENDED 100 MG CAPSULE PO SCH (20:39)
[2020-06-10] MEDS: SIMVASTATIN 10 MG TABLET PO SCH (20:40)
[2020-06-11] MEDS: dilTIAZem HCL 30 MG TABLET PO SCH ×3 (00:52→12:00)
[2020-06-11 02:55] VITALS: BP 100/61
[2020-06-11 07:00] VITALS: BP 105/64
[2020-06-11] MEDS: ASCORBIC ACID 500 MG TABLET PO SCH (08:37)
[2020-06-11] MEDS: MULTIVITAMIN with MINERAL TABLET. PO SCH (08:37)
[2020-06-11] MEDS: FUROSEMIDE 40 MG TABLET. PO SCH (08:37)
[2020-06-11] MEDS: MIDODRINE 5 MG TABLET PO SCH (08:37)
[2020-06-11] MEDS: LACTOBACILLUS RHAMNOSUS GG 1 CAPSULE. PO SCH (08:37)
[2020-06-11] MEDS: METOPROLOL TART IMMED RELEASE 25 MG TABLET. PO SCH (08:37)
[2020-06-11] MEDS: ASPIRIN ENTERIC COATED 81 MG TABLET.DR. PO SCH (08:37)
[2020-06-11] MEDS: ZINC SULFATE 220 MG CAPSULE. PO SCH (08:37)
[2020-06-11] MEDS: PANTOPRAZOLE 40 MG TABLET.DR. PO SCH (08:37)
[2020-06-11] MEDS: ENOXAPARIN 30 MG/0.3 ML SYRINGE. SQ SCH (08:38)
--- NOTE | 2020-06-11 08:51 | PDOC ---
PROGRESS NOTES Date of Service: DATE: 06/11/20 TIME: 08:50 Subjective Subjective pt want to go home Objective Objective Vital Signs Date Time Temp Pulse Resp B/P (MAP) Pulse Ox O2 Delivery O2 Flow Rate FiO2 06/11/20 08:37 85 105/64 06/11/20 07:00 97.9 18 98 Room Air 97.9 Intake and Output 06/11/20 07:00 Intake Total 1120 ml Balance 1120 ml Intake Oral 1120 ml # Voids 8 Physical Exam Abdomen: Normal bowel sounds Heart: Regular rate Extremities: Other (He had edema of his feet and left leg.) General: Alert, Cooperative, No acute distress HEENT: PERRLA Lungs: Clear to auscultation MUSCULOSKELETAL: Other (He had crepitus on ROM of his knee joint with minimal joint effusion and he had stiffness of his hip joints and he requires assistance with rolling in bed.) Neuro: Other (He had generalized muscle weakness and absent knee and ankle jerks and hand intrinsic muscle atrophy but negative Tinel's sign over median nerve at wrist and ulnar nerve at wrist and elbow.) Psych/Mental Status: Mental status NL, Mood NL Skin: Other (dry scaly skin of his extremities.) COMMENT leg swelling1+ Diagnosis Problem List Problems Medical Problems: (1) Chest pain Status: Acute Assessment Assessment 1. Acute on chronic systolic congestive heart failure. 2. Atrial fibrillation ch ronic persistent. 3. Non-ST elevation myocardial infarction. Troponin level is actually improving. 4. Hypertension. 5. Physical deconditioning. 6. History of seizures. 7. Coronary artery disease, history of bypass surgery. 8. Chronic kidney disease, stage 3. PLAN: d/c home with hospice. CT chest melonie pleural efusions+atelcatsis po lasix helping edema crf stage 3-4. poor functional status. poor prognosis spoke with pts son [facility] with hospice Pt and Pts son agreeable to that. Plan Plan of Care Problems Medical Problems: (1) Chest pain Status: Acute Comment Review of Relevant I have reviewed the following items bri (where applicable) has been applied. Medications Current Medications Bupivacaine HCl (Sensorcaine-Mpf 0.25%) 10 ml 1X ONCE IJ Last administered on 06/10/20at 09:45; Start 06/10/20 at 09:45; Stop 06/10/20 at 09:46; Status DC Methylprednisolone Acetate (DEPO-Medrol 40MG VIAL) 40 mg 1X ONCE IM Last administered on 06/10/20at 09:45; Start 06/10/20 at 09:45; Stop 06/10/20 at 09:46; Status DC Vitals/I & O Vital Sign - Last 24 Hours 06/10/20 06/10/20 06/10/20 06/10/20 10:38 12:19 14:43 14:59 Temp 98.3 98.2 98.3 98.2 Pulse 63 63 63 88 Resp 20 18 B/P (MAP) 96/60 (72) 96/60 96/60 119/73 (88) Pulse Ox 96 95 O2 Delivery Room Air Room Air 06/10/20 06/10/20 06/10/20 06/10/20 18:22 19:14 20:00 20:40 Temp 98.0 98.0 Pulse 88 93 93 Resp 18 B/P (MAP) 119/73 110/72 (85) 110/72 Pulse Ox 96 O2 Delivery Room Air Room Air 06/10/20 06/10/20 06/11/20 06/11/20 20:40 22:58 00:52 02:55 Temp 98.3 97.9 98.3 97.9 Pulse 93 76 76 77 Resp 20 B/P (MAP) 110/72 104/74 (84) 104/74 100/61 (74) Pulse Ox 95 91 O2 Delivery Room Air Room Air 06/11/20 06/11/20 06/11/20 06/11/20 05:40 07:00 08:37 08:37 Temp 97.9 97.9 Pulse 77 85 85 85 Resp 18 B/P (MAP) 100/61 105/64 (78) 105/64 105/64 Pulse Ox 98 O2 Delivery Room Air Intake and Output 06/10/20 06/10/20 06/11/20 15:00 23:00 07:00 Intake Total 360 ml 760 ml Balance 360 ml 760 ml Justifications for Admission Other Justification Nutrition Consultation Dietary Evaluation: Recommendations by RD: Dietary education by RD, Increase Calorie Intake, Protein supplementation Comments: Continue w/cardiac diet as ordered, honor food preferences, and provide snacks as requested Continue w/Vit C and MVI - wound healing REC Magic cup w/lunch and dinner trays for protein supplementation Expected Outcomes/Goals: PO intake to meet >75% est needs Malnutrition Findings: Body Fat Depletion (Non Severe: Mild Depletion Weight Status: Appropriate TEQUILA SIMPSON MD Jun 11, 2020 08:51
--- NOTE | 2020-06-11 08:56 | SNU/HH DC ---
DISCHARGE ORDERS DISCHARGE INFORMATION: DISCHARGE DATE: Jun 11, 2020 FINAL DIAGNOSIS Problems Medical Problems: (1) Chest pain Status: Acute CONDITION ON DISCHARGE: Stable CODE STATUS: Code Status: Full HOSPICE: HOSPICE: Yes HOSPICE EVAL & TREAT: Yes POST DISCHARGE ORDERS: ACTIVITY ORDERS: Resume previous activity DIET AFTER DISCHARGE: Cardiac (ADA) CHECKS AFTER DISCHARGE: CHECKS AFTER DISCHARGE: Check blood press - daily, Weigh Yourself Daily TREATMENT/EQUIPMENT ORDERS: Physical Therapy For: Evalulation/Treatment DISCHARGE MEDICATIONS: Home Meds Active Scripts Furosemide (FUROSEMIDE) 40 Mg Tablet, 40 MG PO BID94 for chf for 30 Days, TAB Prov:TEQUILA SIMPSON MD 06/07/20 Phenytoin Sodium Extended (DILANTIN) 100 Mg Capsule, 200 MG PO HS, #60 CAP Prov:PARAS GUADALUPE APRN 05/17/15 Reported Medications Multivitamin (MULTI-VITAMIN DAILY) 1 Each Tablet, 1 TAB PO DAILY for SUPP for 30 Days, #30 TAB 0 Refills 06/04/20 Zinc Sulfate (ZINC-220) 220 Mg Capsule, 220 MG PO DAILY for SUPP, CAP 06/04/20 Lactobacillus Acidophilus (PROBIOTIC) 1 Each Capsule, 1 CAP PO BID for 10 Days, #20 CAP 0 Refills 06/04/20 Ascorbic Acid (VITAMIN C) 100 Mg Tablet, 250 MG PO DAILY, TAB 06/04/20 Aspirin (ASPIR 81) 81 Mg Tablet.dr, 81 MG PO 11/28/13 Simvastatin (SIMVASTATIN) 10 Mg Tablet, 10 MG PO 11/28/13 Pantoprazole Sodium (PANTOPRAZOLE SODIUM ) 40 Mg Tablet.dr, 40 MG PO 11/28/13 Metoprolol Tartrate (METOPROLOL TARTRATE) 25 Mg Tablet, 25 MG PO BID 11/28/13 Phenobarbital (PHENOBARBITAL) 64.8 Mg Tablet, 64.8 MG PO 11/28/13 Discontinued Reported Medications Midodrine Hcl (MIDODRINE HCL) 5 Mg Tablet, 5 MG PO TID for HYPOTENSION, TAB 06/04/20 Diltiazem Hcl (CARDIZEM TABLET) 60 Mg Tablet, 60 MG PO EVERY 6 HOURS for AFIB, #30 TAB 0 Refills 06/04/20 Potassium Chloride (KLOR-CON M20) 20 Meq Tab.er.prt, 1 TAB PO DAILY, #90 TAB 1 Refill 06/16/16 Furosemide (FUROSEMIDE) 40 Mg Tablet, 1 TAB PO DAILY, #30 TAB 5 Refills 06/16/16 Discontinued Scripts Clindamycin Hcl (CLINDAMYCIN HCL) 150 Mg Capsule, 450 MG PO QID, #120 CAP Prov:MIN GARCIA DO 12/21/16 Spironolactone (ALDACTONE) 25 Mg Tablet, 25 MG PO DAILY, #30 TAB Prov:PARAS GUADALUPE APRN 05/17/15 TEQUILA SIMPSON MD Jun 11, 2020 08:56
--- NOTE | 2020-06-11 09:30 | PDOC ---
PROGRESS NOTES Date of Service DATE: 06/11/20 TIME: 09:26 Subjective Subjective He feels better with his right knee joint pain. Objective Objective Vital Signs Date Time Temp Pulse Resp B/P (MAP) Pulse Ox O2 Delivery O2 Flow Rate FiO2 06/11/20 08:37 85 105/64 06/11/20 08:00 Room Air 06/11/20 07:00 97.9 18 98 97.9 Intake and Output 06/11/20 07:00 Intake Total 1120 ml Balance 1120 ml Intake Oral 1120 ml # Voids 8 Physical Exam Physical Exam He is awake,slight stuttering noted while trying to talk and he is moving both knees without pain but still had knee joint effusion and edema of his feet and legs. Assessment Assessment Problems Medical Problems: (1) Chest pain Status: Acute Plan Plan of Care I think he can benefit from continued physical and occupational therapy follow up,and hope he can get it through hospice. Comment Review of Relevant I have reviewed the following items bri (where applicable) has been applied. Labs Laboratory Tests Test 06/10/20 03:30 White Blood Count 5.6 x10^3/uL (4.0-11.0) Red Blood Count 2.25 x10^6/uL (4.30-5.70) Hemoglobin 8.0 g/dL (13.0-17.5) Hematocrit 23.5 % (39.0-53.0) Mean Corpuscular Volume 104 fL (79-100) Mean Corpuscular Hemoglobin 35 pg (25-35) Mean Corpuscular Hemoglobin Concent 34 g/dL (31-37) Red Cell Distribution Width 16.7 % (11.5-14.5) Platelet Count 305 x10^3/uL (140-400) Neutrophils (%) (Auto) 71 % (31-73) Lymphocytes (%) (Auto) 12 % (24-48) Monocytes (%) (Auto) 15 % (0-9) Eosinophils (%) (Auto) 1 % (0-3) Basophils (%) (Auto) 1 % (0-3) Neutrophils # (Auto) 4.0 x10^3/uL (1.8-7.7) Lymphocytes # (Auto) 0.7 x10^3/uL (1.0-4.8) Monocytes # (Auto) 0.8 x10^3/uL (0.0-1.1) Eosinophils # (Auto) 0.1 x10^3/uL (0.0-0.7) Basophils # (Auto) 0.1 x10^3/uL (0.0-0.2) Sodium Level 136 mmol/L (136-145) Potassium Level 4.3 mmol/L (3.5-5.1) Chloride Level 102 mmol/L (98-107) Carbon Dioxide Level 26 mmol/L (21-32) Anion Gap 8 (6-14) Blood Urea Nitrogen 41 mg/dL (8-26) Creatinine 2.0 mg/dL (0.7-1.3) Estimated GFR (Cockcroft-Gault) 32.6 BUN/Creatinine Ratio 21 (6-20) Glucose Level 106 mg/dL (70-99) Calcium Level 7.3 mg/dL (8.5-10.1) Total Bilirubin 0.3 mg/dL (0.2-1.0) Aspartate Amino Transf (AST/SGOT) 48 U/L (15-37) Alanine Aminotransferase (ALT/SGPT) 42 U/L (16-63) Alkaline Phosphatase 150 U/L (46-116) Total Protein 5.4 g/dL (6.4-8.2) Albumin 2.1 g/dL (3.4-5.0) Albumin/Globulin Ratio 0.6 (1.0-1.7) Medications Current Medications Aspirin (Trupti Aspirin) 325 mg 1X ONCE PO Last administered on 06/07/20at 20:30; Start 06/07/20 at 20:00; Stop 06/07/20 at 20:01; Status DC Aspirin (Ecotrin) 81 mg DAILY PO Last administered on 06/11/20at 08:37; Start 06/08/20 at 10:00 Clindamycin HCl (Cleocin) 450 mg QID PO ; Start 06/08/20 at 13:00; Stop 06/08/20 at 15:11; Status DC Furosemide (Lasix) 40 mg BID94 PO Last administered on 06/11/20at 08:37; Start 06/08/20 at 16:00 Metoprolol Tartrate (Lopressor) 25 mg BID PO Last administered on 06/11/20at 08:37; Start 06/08/20 at 10:00 Midodrine (Proamatine) 5 mg TID PO Last administered on 06/11/20 08:37; Start 06/08/20 at 14:00 Pantoprazole Sodium (Protonix) 40 mg DAILYWBKFT PO Last administered on 06/11/20at 08:37; Start 06/08/20 at 10:00 Phenytoin Sodium (Dilantin) 200 mg HS PO Last administered on 06/10/20 20:39; Start 06/08/20 at 21:00 Simvastatin (Zocor) 10 mg HS PO Last administered on 06/10/20 20:40; Start 06/08/20 at 21:00 Zinc Sulfate (Orazinc) 220 mg DAILY PO Last administered on 06/11/20 08:37; Start 06/08/20 at 10:00 Ascorbic Acid (Vitamin C) 250 mg DAILY PO Last administered on 06/11/20at 08:37; Start 06/08/20 at 10:00 Diltiazem HCl (Cardizem) 60 mg Q6HRS PO Last administered on 06/11/20at 05:40; Start 06/08/20 at 12:00 Lactobacillus Rhamnosus (Culturelle) 1 cap BID PO Last administered on 06/11/20 08:37; Start 06/08/20 at 10:00 Multivitamins (Thera M Plus) 1 tab DAILY PO Last administered on 06/11/20 08:37; Start 06/08/20 at 10:00 Furosemide (Lasix) 40 mg 1X ONCE IVP Last administered on 06/08/20 12:19; Start 06/08/20 at 11:00; Stop 06/08/20 at 11:03; Status DC Enoxaparin Sodium (Lovenox 30mg Syringe) 30 mg Q24H SQ Last administered on 06/10/20at 07:52; Start 06/09/20 at 09:30 Furosemide (Lasix) 40 mg 1X ONCE IVP Last administered on 06/09/20at 10:06; Start 06/09/20 at 09:30; Stop 06/09/20 at 09:37; Status DC Methylprednisolone Acetate (DEPO-Medrol 40MG VIAL) 40 mg 1X ONCE IM Last administered on 06/10/20at 09:45; Start 06/10/20 at 09:45; Stop 06/10/20 at 09:46; Status DC Bupivacaine HCl (Sensorcaine-Mpf 0.25%) 10 ml 1X ONCE IJ Last administered on 06/10/20at 09:45; Start 06/10/20 at 09:45; Stop 06/10/20 at 09:46; Status DC Active Scripts Active Furosemide 40 Mg Tablet 40 Mg PO BID94 30 Days Dilantin (Phenytoin Sodium Extended) 100 Mg Capsule 200 Mg PO HS Reported Multi-Vitamin Daily (Multivitamin) 1 Each Tablet 1 Tab PO DAILY 30 Days Zinc-220 (Zinc Sulfate) 220 Mg Capsule 220 Mg PO DAILY Probiotic (Lactobacillus Acidophilus) 1 Each Capsule 1 Cap PO BID 10 Days Vitamin C (Ascorbic Acid) 100 Mg Tablet 250 Mg PO DAILY Aspir 81 (Aspirin) 81 Mg Tablet. 81 Mg PO Simvastatin 10 Mg Tablet 10 Mg PO Pantoprazole Sodium (Pantoprazole Sodium) 40 Mg Tablet. 40 Mg PO Metoprolol Tartrate 25 Mg Tablet 25 Mg PO BID Phenobarbital 64.8 Mg Tablet 64.8 Mg PO Vitals/I & O Vital Sign - Last 24 Hours 06/10/20 06/10/20 06/10/20 06/10/20 10:38 12:19 14:43 14:59 Temp 98.3 98.2 98.3 98.2 Pulse 63 63 63 88 Resp 20 18 B/P (MAP) 96/60 (72) 96/60 96/60 119/73 (88) Pulse Ox 96 95 O2 Delivery Room Air Room Air 06/10/20 06/10/20 06/10/20 06/10/20 18:22 19:14 20:00 20:40 Temp 98.0 98.0 Pulse 88 93 93 Resp 18 B/P (MAP) 119/73 110/72 (85) 110/72 Pulse Ox 96 O2 Delivery Room Air Room Air 06/10/20 06/10/20 06/11/20 06/11/20 20:40 22:58 00:52 02:55 Temp 98.3 97.9 98.3 97.9 Pulse 93 76 76 77 Resp 20 20 B/P (MAP) 110/72 104/74 (84) 104/74 100/61 (74) Pulse Ox 95 91 O2 Delivery Room Air Room Air 06/11/20 06/11/20 06/11/20 06/11/20 05:40 07:00 08:00 08:37 Temp 97.9 97.9 Pulse 77 85 85 Resp 18 B/P (MAP) 100/61 105/64 (78) 105/64 Pulse Ox 98 O2 Delivery Room Air Room Air 06/11/20 08:37 Pulse 85 B/P (MAP) 105/64 Intake and Output 06/10/20 06/10/20 06/11/20 15:00 23:00 07:00 Intake Total 360 ml 760 ml Balance 360 ml 760 ml Justifications for Admission Other Justification Nutrition Consultation Dietary Evaluation: Recommendations by RD: Dietary education by RD, Increase Calorie Intake, Protein supplementation Comments: Continue w/cardiac diet as ordered, honor food preferences, and provide snacks as requested Continue w/Vit C and MVI - wound healing REC Magic cup w/lunch and dinner trays for protein supplementation Expected Outcomes/Goals: PO intake to meet >75% est needs Malnutrition Findings: Body Fat Depletion (Non Severe: Mild Depletion Weight Status: Appropriate PERCY JUDD MD Jun 11, 2020 09:30
[2020-06-11 11:00] VITALS: BP 123/80
--- NOTE | 2020-06-11 12:48 | NUR ---
Discharge Note: [facility] Discharge instructions and discharge home medications reviewed with Other facility and a copy given. All questions have been answered and understanding verbalized. The following instructions and handouts were given: CP Discontinued lines and drains: Peripheral IV intact. Patient discharged to Hospice with Self via Stretcher
--- NOTE | 2020-06-11 19:52 | PDOC ---
Provider Note Date of Service: DATE: 06/11/20 TIME: 19:51 Provider Note Discharge summary dictated, #[id number] Justifications for Admission Other Justification TEQUILA SIMPSON MD Jun 11, 2020 19:52
--- NOTE | 2020-06-11 20:50 | DS ---
DATE OF DISCHARGE: 06/11/2020 REASON FOR ADMISSION TO THE HOSPITAL: Shortness of breath and chest pain. CONSULTATIONS: 1. Bruce Garay MD 2. Dr. Vera. HOSPITAL COURSE: The patient was recently discharged from hospital to assisted [facility] at [facility]. The patient had a non-STEMI and troponin was 1.5, atrial fibrillation with RVR. The patient was admitted again. His troponin was trending down, but he has developed worsening congestive heart failure, was given IV Lasix. The patient had a CT of the chest, which shows bilateral pleural effusions with atelectasis and the patient was seen by Physical Therapy and Dr. Vera. The patient was at a [facility]. He does not like the first, really wants to go home and the patient's is also sick with end-stage COPD, on hospice and it was felt that because of the patient's comorbid conditions, it will be appropriate for him to discharge home with hospice too. FINAL DIAGNOSES: 1. Congestive heart failure, acute on chronic diastolic heart failure. 2. Coronary artery disease, history of previous bypass surgery. 3. Recent non-STEMI with preserved left ventricular function. 4. Pulmonary hypertension, tricuspid regurgitation. 5. Seizures. 6. Poor functional status. DISPOSITION: Home with hospice. DISCHARGE MEDICATIONS: See MRAD for discharge medications. PROGNOSIS: Guarded secondary to multiple comorbid conditions and poor functional status and the patient and the family is agreeable to hospice. TEQUILA SIMPSON MD DR: RANDA/chris JOB#: [id number] / [id number]
== END 2020-06-11 12:40 | disposition hospice, home (50) | DRG 280 ==
LOC: ER 18:06 → 2 SOUTH 21:37 → OBSVTOIN 06-08 18:08
PROVIDERS: ADMIT Internal Medicine; ATTEND Internal Medicine
PROC: 3E0U33Z Introduction of Anti-inflammatory into Joints, Percutaneous Approach (ICD-10-PCS; principal; 2020-06-10)
PROC: 3E0U3BZ Introduction of Anesthetic Agent into Joints, Percutaneous Approach (ICD-10-PCS; 2020-06-10)
DX: I13.0 Hypertensive heart and chronic kidney disease with heart failure and stage 1 through stage 4 chronic kidney disease, or unspecified chronic kidney disease (principal); I21.A1 Myocardial infarction type 2; I50.43 Acute on chronic combined systolic (congestive) and diastolic (congestive) heart failure; I21.4 Non-ST elevation (NSTEMI) myocardial infarction; N17.9 Acute kidney failure, unspecified; I48.20 Chronic atrial fibrillation, unspecified; J98.11 Atelectasis; E11.22 Type 2 diabetes mellitus with diabetic chronic kidney disease; E11.42 Type 2 diabetes mellitus with diabetic polyneuropathy; E78.00 Pure hypercholesterolemia, unspecified; E78.5 Hyperlipidemia, unspecified; E87.5 Hyperkalemia; I07.1 Rheumatic tricuspid insufficiency; R07.89 Other chest pain; I25.10 Atherosclerotic heart disease of native coronary artery without angina pectoris; I25.2 Old myocardial infarction; I27.29 Other secondary pulmonary hypertension; I50.82 Biventricular heart failure; M19.90 Unspecified osteoarthritis, unspecified site; N18.3 Chronic kidney disease, stage 3 (moderate); R56.9 Unspecified convulsions; Z82.49 Family history of ischemic heart disease and other diseases of the circulatory system; Z86.73 Personal history of transient ischemic attack (TIA), and cerebral infarction without residual deficits; Z87.891 Personal history of nicotine dependence; Z95.1 Presence of aortocoronary bypass graft; F32.9 Major depressive disorder, single episode, unspecified; F41.9 Anxiety disorder, unspecified; K21.9 Gastro-esophageal reflux disease without esophagitis; Z88.8 Allergy status to other drugs, medicaments and biological substances
CPT/HCPCS: 36415; 71045; 71250; 80048; 80053; 82140; 83690; 83735; 83880; 84484; 85025; 85610; 85730; 93005; 99285; G0378; G0379; J1030; J1650; J1940; J3490; 97530-GO

== ENCOUNTER 2020-06-18 17:46 | Emergency (ER) | payer MEDICARE ==
[~2020-06-18] VITALS: Ht 177.8 cm; Wt 61.3 kg
--- NOTE | 2020-06-18 18:47 | PHYS DOC ---
Past Medical History Past Medical History: A-Fib, CAD, CHF, High Cholesterol, Heart Disease, H ypertension, Seizure, Stroke, TIA, Other Additional Past Medical Histor: ACUTE KIDNEY FAILURE,NSTEMI,ENCEPHALOPATHY, Past Surgical History: Coronary Bypass Surgery, Other Additional Past Surgical Histo: 06/16-UNKNOWN POOR HISTORIAN Smoking Status: Former Smoker Alcohol Use: None Drug Use: None Social History Narrative: ordered by hospice General Adult EDM: Chief Complaint: PAIN CONTROL HPI: HPI: 79-year-old male past medical history significant for A. fib, CAD, hypertension, hyperlipidemia, CHF, CVA on hospice, presents to the ED from hospice care with concern for uncontrolled pain, not relieved with 2 doses of morphine. Pt reports "I hurt all over, my legs are the worst." Pt reports his pain has worsened over the past week and is non focal except for his leg swelling. Is on hospice for chf. Review of Systems: Review of Systems: Constitutional: Denies fever or chills. [] Eyes: Denies change in visual acuity. [] HENT: Denies nasal congestion or sore throat. [] Respiratory: Denies cough or shortness of breath. [] Cardiovascular: Denies chest pain or edema. [] GI: Denies abdominal pain, nausea, vomiting, bloody stools or diarrhea. [] : Denies dysuria. [] Or hematuria Musculoskeletal: Denies back pain or joint pain. [] Integument: Denies rash. [] Neurologic: Denies headache, focal weakness or sensory changes. [] Or neck stiffness Endocrine: Denies polyuria or polydipsia. [] Lymphatic: Denies swollen glands. [] Psychiatric: Denies depression or anxiety. [] Heart Score: Risk Factors: Risk Factors: DM, Current or recent (<one month) smoker, HTN, HLP, family h istory of CAD, obesity. Risk Scores: Score 0 - 3: 2.5% MACE over next 6 weeks - Discharge Home Score 4 - 6: 20.3% MACE over next 6 weeks - Admit for Clinical Observation Score 7 - 10: 72.7% MACE over next 6 weeks - Early Invasive Strategies Allergies: Allergies: Allergies Coded Allergies Type Severity Reaction Last Updated Verified Sulfa (Sulfonamide Antibiotics) Adverse Reaction Intermediate HALLUCINATIONS 05/14/15 Yes morphine Adverse Reaction Intermediate HALLUCINATIONS 8/18/15 Yes warfarin Adverse Reaction Intermediate GI bleeding 12/21/16 Yes Physical Exam: PE: Constitutional: appears bedbound, weak/frail, afebrile HENT: Normocephalic, atraumatic, Eyes: , EOMI, conjunctiva normal, no discharge, Neck: Normal range of motion, no tenderness, supple, no stridor. [] Cardiovascular:Heart rate regular rhythm, no murmur [] Lungs & Thorax: Bilateral breath sounds clear to auscultation [] Abdomen: Bowel sounds normal, soft, no tenderness, no masses, no pulsatile masses. [] Skin: Warm, dry, no erythema, no rash. [] Extremities: no cyanosis, no clubbing, ROM intact, +3/4 bl tender pitting edema Neurologic: Alert to self/location, normal motor function, normal sensory function, no focal deficits noted. [] Psychologic: Affect normal, judgement normal, mood normal. [] : sitting in stool, no fourneirs gangrene/rash of perineum, no penile or testicular ttp Current Patient Data: Vital Signs: Vital Signs Date Time Temp Pulse Resp B/P (MAP) Pulse Ox O2 Delivery O2 Flow Rate FiO2 06/18/20 17:46 98.2 113 20 100/72 (81) 98 Room Air 98.2 EKG: EKG: [] Radiology/Procedures: Radiology/Procedures: IMAGING REPORT Signed PATIENT: MATTHEW MARTINEZ ACCOUNT: [id number] : 1940 LOCATION: ER AGE: 79 SEX: M EXAM STATUS: REG ER ORD. PHYSICIAN: COLLEEN BASURTO DO REASON: confusion PROCEDURE: CT HEAD WO CONTRAST CT scan of the head without contrast 06/18/2020 Clinical History: Confusion. Technique: Unenhanced, contiguous, 5 mm axial sections were obtained through the head. One or more of the following individualized dose reduction techniques were utilized for this study: 1. Automated exposure control. 2. Adjustment of the mA and/or kV according to patient size. 3. Use of iterative reconstruction technique. Findings: Comparison study is dated 06/05/2020. There is generalized parenchymal atrophy. Areas of decreased attenuation are seen within the periventricular and subcortical white matter of both cerebral hemispheres consistent with areas of small vessel ischemic disease. A 3.3 cm extra-axial mass is seen within the superior left frontal region consistent with a meningioma. This is unchanged. There is no significant mass effect. No acute parenchymal abnormality is seen. No extra-axial fluid collection is noted. No skull fracture is seen. Impression: No acute intracranial abnormality is seen. Electronically signed by: Daljit Dumont MD (06/18/2020 8:16 PM) [id number] DICTATED and SIGNED BY: DALJIT DUMONT MD DATE: 06/18/202015 IMAGING REPORT Signed PATIENT: MATTHEW MARTINEZ ACCOUNT: [id number] : 1940 LOCATION: ER AGE: 79 SEX: M EXAM STATUS: REG ER ORD. PHYSICIAN: COLLEEN BASURTO DO REASON: pain, tachcyardic 11 PROCEDURE: PORTABLE CHEST 1V AP chest x-ray COMPARISON: CT chest June 10, 2020. HISTORY: Chest pain and tachycardia. FINDINGS: Cardiomegaly stable. Median sternotomy and coronary bypass again noted. No pneumothorax. Pulmonary vascular congestion is stable. Pulmonary interstitial edema at the lung bases with increased opacity is increased. New small right pleural effusion along the right diaphragm is not excluded. IMPRESSION: Congestive heart failure with cardiomegaly and pulmonary edema which has mildly progressed. There is a small right pleural effusion along the right diaphragm blunting the costophrenic angle which is also mildly increased. Electronically signed by: Scott Diallo MD (06/18/2020 7:58 PM) [id number] DICTATED and SIGNED BY: SCOTT DIALLO MD DATE: 06/18/201957 Course & Med Decision Making: Course & Med Decision Making Pertinent Labs and Imaging studies reviewed. (See chart for details) ED encounter for pain ctrl. Pt takes liquid morphine 20mg q6 hours. Due to elevated HR, workup was performed. Pt afebrile with no leukocytosis. Labs show chronic kidney disease, creatinine 1.4, 2 with prior, GFR 49, 32 was prior. Patient also with anemia hemoglobin 8.4, was 8 on prior. Potassium slightly elevated 5.4. Urinalysis with no infection. Chest x-ray showing chronic congestive heart failure-mildly increased right pleural effusion. LE US with no DVT 06/05/20. Patient could increase his morphine dosage but will defer this to his primary care physician Dr. Cárdenas discussed this with pt and rn called hospice physician and informed. Strict ed return precautions for fever, no urine output or chest pain. Encouraged urgent outpatient follow-up with PMD and pain management. Life-threatening processes were considered but are low suspicion at this time, given history and physical exam. Pt was educated on all prescription medications and adverse effects. All patient's questions were answered and pt was stable at time of discharge. Differential includes surgical abdomen (appendicitis, cholecystitis, diverticulitis, inflammatory bowel disease, abscess, perforation), meningitis, encephalitis, Frandy's angina, necrotizing fasciitis, endocarditis, life- threatening rash, viral syndrome, gynecologic and urologic emergencies (endometritis, ovarian/testicular torsion, TOA, obstructive nephropathy, prostatitis), head and neck abscess, sepsis or shock, or respiratory failure. I spoken with the patient and her caregivers. I explained the patient's co ndition, diagnoses and treatment plan based on the information available to me at this time. I have answered the patient and her caregiver's questions and addressed any concerns. The patient and her caregivers have a good understanding of patient's diagnosis, condition and treatment plan as can be expected at this point. Vital signs have been stable. Patient's condition is stable and appropriate for discharge from the emergency department. Patient will pursue further outpatient evaluation with primary care physician or other designated or consulting physician as outlined in the discharge instructions. The patient and/or caregivers are agreeable to this plan of care and follow-up instructions have been explained in detail. The patient and/or caregivers have received these instructions in written form and have expressed an understanding of the discharge instructions. The patient and/or caregivers are aware that any significant change of condition or worsening of symptoms should prompt immediate return to this or the closest emergency department or call to 911. Patricia Disclaimer: Patricia Disclaimer: This electronic medical record was generated, in whole or in part, using a voice recognition dictation system. Departure Departure Impression: Primary Impression: Chronic pain Additional Impressions: CHF (congestive heart failure) Leg swelling CKD (chronic kidney disease) Hyperkalemia Disposition: 01 HOME, SELF-CARE Condition: STABLE Referrals: TEQUILA SIMPSON MD (PCP) Needs repeat potassium check in 1 week potassium 5.4 on 06/18/20 Patient Instructions: Chronic Pain Management, Hyperkalemia Additional Instructions: Eric Ingram MD Primary Specialties Pain Management [facility] Address: [address] [address] EMERGENCY DEPARTMENT GENERAL DISCHARGE INSTRUCTIONS Thank you for coming to [facility] Emergency Department (ED) today and trusting us with you care. We trust that you had a positive experience in our Emergency Department. If you wish to speak to the department management, you may call the Director at [phone]. YOUR FOLLOW UP INSTRUCTIONS ARE FOLLOWS: 1. Do you have a private Doctor? If you do not have a private doctor, please ask for a resource list of physicians or clinics that may be able to assist you with follow up care. 2. The Emergency Physicain has interpreted your x-rays. The X-Ray specialist will also review them. If there is a change in the findings, you will be notified in 48 hours when at all possible. 3. A lab test or culture has been done, your results will be reviewed and you will be notified if you need a change in treatment. ADDITIONAL INSTRUCTIONS AND INFORMATION: 1. Your care today has been supervised by a physician who is specially trained in emergency care. Many problems require more than one evaluation for a complete diagnosis and treatment. We recommend that you schedule your follow up appointment as recommended to ensure complete treatment of you illness or injury. If you are unable to obtain follow up care and continue to have a problem, or if your condition worsens, we recommend that you return to the ED. 2. We are not able to safely determine your condition over the phone nor are we able to give sound medical advice over the phone. For these safety reasons, if you call for medical advice we will ask you to come to the ED for further evaluation. 3. If you have any questions regarding these discharge instructions please call the ED at [phone]. SAFETY INFORMATION: In the interest of safety, wellness, and injury prevention; we encourage you to wear your sealbelt, if you smoke; quite smoking, and we encourage family to use a protective helmet for bicycling and other sporting events that present an increased risk for head injury. IF YOUR SYMPTOMS WORSEN OR NEW SYMPTOMS DEVELOP, OR YOU HAVE CONCERNS ABOUT YOUR CONDITION; OR IF YOUR CONDITION WORSENS WHILE YOU ARE WAITING FOR YOUR FOLLOW UP APPOINTMENT; EITHER CONTACT YOUR PRIMARY CARE DOCTOR, THE PHYSICIAN WHOSE NAME AND NUMBER YOU WERE GIVEN, OR RETURN TO THE ED IMMEDIATELY. Justicifation of Admission Dx: Justifications for Admission: Justification of Admission Dx: N/A COLLEEN BASURTO DO Jun 18, 2020 18:47
[2020-06-18 18:57] LABS: BASO # 0.1 x10^3/uL (0.0-0.2); BASO % 2 % (0-3); EOS # 0.3 x10^3/uL (0.0-0.7); EOS % 6 % (0-3); HEMATOCRIT 25.6 % (39.0-53.0); HEMOGLOBIN 8.4 g/dL (13.0-17.5); LYMPH # 0.8 x10^3/uL (1.0-4.8); LYMPH % 16 % (24-48); MEAN CORPUSCULAR HEMOGLOBIN 34 pg (25-35); MEAN CORPUSCULAR HGB CONC 33 g/dL (31-37); MEAN CORPUSCULAR VOLUME 102 fL (79-100); MONO # 0.6 x10^3/uL (0.0-1.1); MONO % 11 % (0-9); NEUT # 3.5 x10^3/uL (1.8-7.7); NEUT % 66 % (31-73); PLATELET COUNT 291 x10^3/uL (140-400); RED BLOOD COUNT 2.51 x10^6/uL (4.30-5.70); RED CELL DISTRIBUTION WIDTH 15.9 % (11.5-14.5); WHITE BLOOD COUNT 5.2 x10^3/uL (4.0-11.0)
[2020-06-18 19:10] LABS: CALCIUM 8.1 mg/dL (8.5-10.1); CREATININE 1.4 mg/dL (0.7-1.3); GFR 49.1; POTASSIUM 5.4 mmol/L (3.5-5.1)
[2020-06-18 19:16] LABS: ALBUMIN 2.4 g/dL (3.4-5.0); ALBUMIN/GLOBULIN RATIO 0.7 (1.0-1.7); MAGNESIUM 2.1 mg/dL (1.8-2.4); TOTAL BILIRUBIN 0.2 mg/dL (0.2-1.0)
[2020-06-18 19:19] LABS: BILIRUBIN,URINE NEGATIVE (NEG); CLARITY,URINE CLEAR; COLOR,URINE YELLOW; NITRITE,URINE NEGATIVE (NEG); PROTEIN,URINE NEGATIVE (NEG-TRACE)
[2020-06-18] MEDS ORDERED: HYDROmorphone 2 MG/ML VIAL IVP ONE (19:30)
[2020-06-18 19:34] LABS: BACTERIA,URINE 0 /HPF (0-FEW); HYALINE CASTS, URINE FEW /HPF; RBC,URINE 0 /HPF (0-2); WBC,URINE OCC /HPF (0-4)
[2020-06-18 19:47] VITALS: BP 103/67
--- NOTE | 2020-06-18 20:01 | RAD ---
AP chest x-ray COMPARISON: CT chest June 10, 2020. HISTORY: Chest pain and tachycardia. FINDINGS: Cardiomegaly stable. Median sternotomy and coronary bypass again noted. No pneumothorax. Pulmonary vascular congestion is stable. Pulmonary interstitial edema at the lung bases with increased opacity is increased. New small right pleural effusion along the right diaphragm is not excluded. IMPRESSION: Congestive heart failure with cardiomegaly and pulmonary edema which has mildly progressed. There is a small right pleural effusion along the right diaphragm blunting the costophrenic angle which is also mildly increased. Electronically signed by: Joce Diallo MD (06/18/2020 7:58 PM) [id number]
--- NOTE | 2020-06-18 20:19 | RAD ---
CT scan of the head without contrast 06/18/2020 Clinical History: Confusion. Technique: Unenhanced, contiguous, 5 mm axial sections were obtained through the head. One or more of the following individualized dose reduction techniques were utilized for this study: 1. Automated exposure control. 2. Adjustment of the mA and/or kV according to patient size. 3. Use of iterative reconstruction technique. Findings: Comparison study is dated 06/05/2020. There is generalized parenchymal atrophy. Areas of decreased attenuation are seen within the periventricular and subcortical white matter of both cerebral hemispheres consistent with areas of small vessel ischemic disease. A 3.3 cm extra-axial mass is seen within the superior left frontal region consistent with a meningioma. This is unchanged. There is no significant mass effect. No acute parenchymal abnormality is seen. No extra-axial fluid collection is noted. No skull fracture is seen. Impression: No acute intracranial abnormality is seen. Electronically signed by: Daljit Dumont MD (06/18/2020 8:16 PM) [id number]
--- NOTE | 2020-06-19 08:04 | EKG ---
[facility] [address] [place] [address] Test Date: 2020-06-18 Test Time: 17:53:27 Pat Name: MATTHEW MARTINEZ Department: Room: Gender: M [employer]: : 1940 Requested By: COLLEEN BASURTO Order Number: [id number] Reading MD: Measurements Intervals [place] Rate: 98 P: NV: QRS: 77 QRSD: 94 T: -14 QT: 344 QTc: 441 Interpretive Statements IRREGULAR RHYTHM, NO P-WAVE FOUND LOW LIMB LEAD VOLTAGE T ABNORMALITY IN ANTERIOR LEADS INFERIOR LEADS ABNORMAL ECG RI6.01 No previous ECG available for comparison
== END 2020-06-19 00:30 | disposition home or self-care (01) ==
LOC: ER 17:46
DX: G89.29 Other chronic pain (principal); R60.0 Localized edema; I50.9 Heart failure, unspecified; I12.9 Hypertensive chronic kidney disease with stage 1 through stage 4 chronic kidney disease, or unspecified chronic kidney disease; N18.9 Chronic kidney disease, unspecified; E87.5 Hyperkalemia; I48.20 Chronic atrial fibrillation, unspecified; I25.2 Old myocardial infarction; Z86.73 Personal history of transient ischemic attack (TIA), and cerebral infarction without residual deficits; Z98.890 Other specified postprocedural states; Z87.891 Personal history of nicotine dependence; Z88.2 Allergy status to sulfonamides; Z88.6 Allergy status to analgesic agent; Z88.8 Allergy status to other drugs, medicaments and biological substances
CPT/HCPCS: 36415; 70450; 71045; 80053; 81001; 83690; 83735; 83880; 84484; 85025; 93005; 99285